=== PATIENT | female | born 1935 | race Caucasian/White ===

== ENCOUNTER 2021-07-03 09:01 | Outpatient (CLI) | payer MEDICARE, OTHER, SELFPAY ==
--- NOTE | 2021-07-03 09:16 | USCV_ITS ---
Gricelda Andrade Age: 86 Gender: F : 1935 Exam Date: 07/03/2021 09:36 Ordering Phys: Elmo Staton DO Technologist: Quang Mujica Exam Location: [facility] Indication: cad BP: 120 / 70 HR: 75 Rhythm: Sinus Technical Quality: Adequate MEASUREMENTS (Male / Female) Normal Values 2D ECHO LV Diastolic Diameter PLAX 4.2 cm 4.2 - 5.9 / 3.9 - 5.3 cm LV Systolic Diameter PLAX 2.5 cm IVS Diastolic Thickness 0.9 cm 0.6 - 1.0 / 0.6 - 0.9 cm IVS Systolic Thickness 1.3 cm LVPW Diastolic Thickness 0.9 cm 0.6 - 1.0 / 0.6 - 0.9 cm LVPW Systolic Thickness 1.2 cm LVOT Diameter 2.0 cm LV Ejection Fraction 2D Teich 63.8 % LV Ejection Fraction MOD 2C 59.0 % LV Ejection Fraction 2C AL 61.2 % LA Diameter 4.4 cm Aorta at Sinotubular Diameter 2.5 cm M-MODE Aortic Annulus Diameter 3.4 cm LA Ao Ratio MM 1.3 MV E Point Septal Separation 0.7 cm DOPPLER AV Peak Velocity 119.0 cm/s LVOT Peak Velocity 90.0 cm/s AV Area Cont Eq vti 2.2 cm squared AV Area Cont Eq pk 2.4 cm squared MV Area PHT 5.0 cm squared Mitral E to A Ratio 0.9 MV E' Velocity 42.5 cm/s Mitral E to MV E' Ratio 6.9 Mitral E to LV E' Lateral Ratio 5.1 Mitral E to LV E' Septal Ratio 10.4 TR Peak Velocity 147.7 cm/s TR Peak Gradient 8.7 mmHg TV Peak E Velocity 64.0 cm/s Right Atrial Pressure 3.0 mmHg Pulmonary Artery Systolic Pressu 11.7 mmHg PV Peak Velocity 89.0 cm/s FINDINGS Left Ventricle Normal left ventricular size and systolic function, EF 55 %. Abnormal septal motion consistent with conduction abnormality. Right Ventricle The right ventricle is normal in size and function. Right Atrium The right atrium is normal in size. Left Atrium Mildly increased left atrial size. Mitral Valve Moderate mitral valve regurgitation. Moderate mitral annular calcification. Aortic Valve Thickened aortic valve. Tricuspid Valve Mild tricuspid valve regurgitation. Pulmonic Valve No gross abnormalities noted Pericardium Normal pericardium without effusion. Aorta Normal ascending aorta dimension. CONCLUSIONS Normal left ventricular size and systolic function, EF 55 %. Abnormal septal motion consistent with conduction abnormality. Mildly increased left atrial size. Moderate mitral valve regurgitation. Moderate mitral annular calcification. Thickened aortic valve. Mild tricuspid valve regurgitation. There is no pericardial effusion. There are no intracardiac masses. Compared to previous study from 04/17/2015, there is some worsening of the mitral regurgitation Dr Nini Aquino MD FAC (Electronically Signed) Final Date: 03 Jul 2021 17:08 S
== END 2021-07-03 09:02 | disposition home or self-care (01) ==
PROVIDERS: PCP Electrodiagnostic Medicine; Visit Provider Electrodiagnostic Medicine
DX: I25.10 Atherosclerotic heart disease of native coronary artery without angina pectoris (principal); I49.9 Cardiac arrhythmia, unspecified; I08.1 Rheumatic disorders of both mitral and tricuspid valves
CPT/HCPCS: 93306

== ENCOUNTER → 2021-12-10 09:36 | Outpatient (BNVA) | payer MEDICARE, OTHER, SELFPAY | PROVIDERS: PCP Electrodiagnostic Medicine; Visit Provider Internal Medicine Cardiovascular Disease | DX: I25.5 Ischemic cardiomyopathy (principal); I12.9 Hypertensive chronic kidney disease with stage 1 through stage 4 chronic kidney disease, or unspecified chronic kidney disease; N18.30 Chronic kidney disease, stage 3 unspecified; E78.5 Hyperlipidemia, unspecified; I25.10 Atherosclerotic heart disease of native coronary artery without angina pectoris | CPT/HCPCS: 99214 ==

== ENCOUNTER → 2022-06-17 09:49 | Outpatient (BNVA) | payer MEDICARE, OTHER, SELFPAY | PROVIDERS: PCP Electrodiagnostic Medicine; Visit Provider Internal Medicine Cardiovascular Disease | DX: R06.02 Shortness of breath (principal); I12.9 Hypertensive chronic kidney disease with stage 1 through stage 4 chronic kidney disease, or unspecified chronic kidney disease; N18.30 Chronic kidney disease, stage 3 unspecified; E78.2 Mixed hyperlipidemia; I25.10 Atherosclerotic heart disease of native coronary artery without angina pectoris; M79.89 Other specified soft tissue disorders; H53.8 Other visual disturbances | CPT/HCPCS: 99214 ==

== ENCOUNTER 2022-06-20 10:40 | Outpatient (CLI) | payer MEDICARE, OTHER, SELFPAY ==
[2022-06-20 11:46] LABS: D Dimer 0.84 ug/mIFEU (0-0.59)
[2022-06-20 12:01] LABS: Anion Gap 12.3 (5-19); Blood Urea Nitrogen 14 mg/dL (8-23); Calcium 9.4 mg/dL (8.5-10.5); Carbon Dioxide 30 mmol/L (22-29); Chloride 100 mmol/L (98-107); Glucose 110 mg/dL (65-115); NT Pro B Type Natriuretic Pept 714 pg/mL (0-450); Osmolality Calculated 287 mOsm/kg (285-295); Potassium 4.3 mmol/L (3.5-5.1); Sodium 138 mmol/L (136-145)
== END 2022-06-20 10:41 | disposition home or self-care (01) ==
PROVIDERS: PCP Electrodiagnostic Medicine; Visit Provider Internal Medicine Cardiovascular Disease
DX: E78.2 Mixed hyperlipidemia (principal); I10 Essential (primary) hypertension; I25.10 Atherosclerotic heart disease of native coronary artery without angina pectoris; I25.5 Ischemic cardiomyopathy; M79.89 Other specified soft tissue disorders; R06.02 Shortness of breath
CPT/HCPCS: 36415; 80048; 83880; 85378

== ENCOUNTER 2022-06-24 08:46 | Outpatient (CLI) | payer MEDICARE, OTHER, SELFPAY ==
--- NOTE | 2022-06-24 09:00 | CT_ITS ---
WS: [id number] CTA OF THE CHEST WITH PULMONARY EMBOLISM PROTOCOL TECHNIQUE: High-resolution contrast enhanced CTA of the chest with coronal and sagittal reformatted i mages with pulmonary embolism protocol. MIP images are also reviewed. CLINICAL INFORMATION: M79.89 - Other specified soft tissue disorders COMPARISON: CTA 2019 DLP: 372.[address] scans at [facility] use at least one of these dose optimization techniques: automated e xposure control; mA and/or kV adjustment per patient size (includes targeted exams where dose is matc hed to clinical indication); or iterative reconstruction. FINDINGS: Proximal main pulmonary arteries are normal. Normal segmental and subsegmental pulmonary arteries. No evidence of pulmonary embolus. Moderate aortic atheromatous disease. Coronary calcification. No medi astinal or hilar lymphadenopathy. Calcified mediastinal and subcarinal lymph nodes. Moderate esophageal hiatal hernia progressed compared to 2019. Cardiomegaly. No axillary lymphadenopa thy. Incidental hepatic cysts. Cholecystectomy clips. Splenic granulomas. Adrenal glands are normal. Bilateral renal cortical atrophy. Fatty atrophy of the pancreas. Splenic artery calcification. CT/CT angio chest PE protcl [id number] IMPRESSION: 1. No evidence of pulmonary embolus. 2. Chronic emphysematous changes. No acute pulmonary infiltrates. Slight hazy atelectasis in the lung bases. 3. Cardiomegaly. 4. Moderate esophageal hiatal hernia progressed since 2019. 5. Small hepatic cysts in the dome the liver. 6. Moderate spondylitic changes thoracic spine with thoracic curve.
[2022-06-24] MEDS: iohexol 350 mg/mL 500 mL Btl (per mL) IV (09:58)
== END 2022-06-24 08:47 | disposition home or self-care (01) ==
LOC: RAD 08:52
PROVIDERS: PCP Electrodiagnostic Medicine; Visit Provider Internal Medicine Cardiovascular Disease
DX: E78.2 Mixed hyperlipidemia (principal); I10 Essential (primary) hypertension; I25.10 Atherosclerotic heart disease of native coronary artery without angina pectoris; M79.89 Other specified soft tissue disorders; I25.5 Ischemic cardiomyopathy; R79.89 Other specified abnormal findings of blood chemistry; R06.02 Shortness of breath; I51.7 Cardiomegaly; K44.9 Diaphragmatic hernia without obstruction or gangrene; K76.89 Other specified diseases of liver
CPT/HCPCS: 71275; Q9967

== ENCOUNTER 2022-07-08 16:03 | Outpatient (CLI) | payer MEDICARE, OTHER, SELFPAY ==
--- NOTE | 2022-07-08 15:30 | USCV_ITS ---
Gricelda Andrade Age: 87 Gender: F : 1935 Exam Date: 07/08/2022 16:40 Ordering Phys: Nini Aquino MD ([email or web address]) Technologist: Candido Cruz [place] [facility] [place]: blurring vision Risk Factors: Previous Vascular Surgery: Right Brachial BP: / Left Brachial BP: / Right Left Velocity (cm/s) Spectral Plaque Velocity (cm/s) Spectral Plaque Syst/Diast Broadening Syst/Diast Broadening 74.60/ 15.80 Prox CCA 59.80 / 17.10 63.30/ 13.60 Mid CCA 65.20 / 20.30 55.20/ 13.10 Distal CCA 47.50 / 13.40 41.40/ 12.00 Prox ICA 57.70 / 20.80 54.60/ 19.70 Mid ICA 52.90 / 20.30 74.90/ 25.60 Distal ICA 31.00 / 11.70 50.80 ECA 52.90 0.86 ICA/CCA 0.81 Antegrade Vertebral Antegrade 24.10/ 7.00 cm/s 50.70/ 18.20 cm/s Tri Subclavian Tri 68.40 59.30 FINDINGS Minimal plaque at the bifurcation and proximal internal carotid arteries bilaterally. Intimal thickening of the common carotid arteries bilaterally. Antegrade flow in the vertebral arteries bilaterally. Normal Doppler flow velocities in the external carotid and subclavian arteries bilaterally. CONCLUSIONS Minimal plaque at the bifurcation and proximal internal carotid arteries bilaterally, suggesting less than 50% stenosis. Intimal thickening of the common carotid arteries bilaterally. No similar previous studies are available for comparison Dr Nini Aquino MD [facility] (Electronically Signed) Final Date: 11 Jul 2022 09:01 S
== END 2022-07-08 16:04 | disposition home or self-care (01) ==
PROVIDERS: PCP Electrodiagnostic Medicine; Visit Provider Internal Medicine Cardiovascular Disease
DX: H53.8 Other visual disturbances (principal); R55 Syncope and collapse
CPT/HCPCS: 36415; 80048; 83880; 84443; 93880

== ENCOUNTER → 2022-09-23 12:06 | Outpatient (BNVA) | payer MEDICARE, OTHER, SELFPAY | PROVIDERS: PCP Electrodiagnostic Medicine; Visit Provider Internal Medicine Cardiovascular Disease | DX: R06.02 Shortness of breath (principal); Z79.899 Other long term (current) drug therapy; M79.89 Other specified soft tissue disorders; E78.2 Mixed hyperlipidemia; I25.10 Atherosclerotic heart disease of native coronary artery without angina pectoris; N18.30 Chronic kidney disease, stage 3 unspecified; I12.9 Hypertensive chronic kidney disease with stage 1 through stage 4 chronic kidney disease, or unspecified chronic kidney disease | CPT/HCPCS: 80048; 83880; 99214 ==

== ENCOUNTER 2022-10-29 09:50 | Outpatient (CLI) | payer MEDICARE, OTHER, SELFPAY ==
[2022-10-29 10:44] LABS: Anion Gap 9.3 (5-19); Blood Urea Nitrogen 17 mg/dL (8-23); Calcium 9.6 mg/dL (8.5-10.5); Carbon Dioxide 33 mmol/L (22-29); Chloride 100 mmol/L (98-107); Glucose 121 mg/dL (65-115); NT Pro B Type Natriuretic Pept 1505 pg/mL (0-450); Osmolality Calculated 289 mOsm/kg (285-295); Potassium 4.3 mmol/L (3.5-5.1); Sodium 138 mmol/L (136-145)
== END 2022-10-29 09:51 | disposition home or self-care (01) ==
PROVIDERS: PCP Electrodiagnostic Medicine; Visit Provider Internal Medicine Cardiovascular Disease
DX: I25.10 Atherosclerotic heart disease of native coronary artery without angina pectoris (principal); I25.5 Ischemic cardiomyopathy; I10 Essential (primary) hypertension; R06.02 Shortness of breath
CPT/HCPCS: 36415; 80048; 83880

== ENCOUNTER 2022-11-12 11:38 | Outpatient (CLI) | payer MEDICARE, OTHER, SELFPAY ==
[2022-11-12 13:20] LABS: Anion Gap 11.7 (5-19); Blood Urea Nitrogen 18 mg/dL (8-23); Calcium 9.7 mg/dL (8.5-10.5); Carbon Dioxide 33 mmol/L (22-29); Chloride 98 mmol/L (98-107); Glucose 106 mg/dL (65-115); NT Pro B Type Natriuretic Pept 2075 pg/mL (0-450); Osmolality Calculated 288 mOsm/kg (285-295); Potassium 4.7 mmol/L (3.5-5.1); Sodium 138 mmol/L (136-145)
== END 2022-11-12 11:39 | disposition home or self-care (01) ==
PROVIDERS: PCP Electrodiagnostic Medicine; Visit Provider Internal Medicine Cardiovascular Disease
DX: I10 Essential (primary) hypertension (principal); I25.10 Atherosclerotic heart disease of native coronary artery without angina pectoris; I25.5 Ischemic cardiomyopathy; R06.02 Shortness of breath; Z79.899 Other long term (current) drug therapy
CPT/HCPCS: 36415; 80048; 83880

== ENCOUNTER → 2022-11-27 15:11 | Outpatient (BNVA) | payer MEDICARE, OTHER, SELFPAY | PROVIDERS: PCP Electrodiagnostic Medicine; Visit Provider Internal Medicine Cardiovascular Disease | DX: I13.0 Hypertensive heart and chronic kidney disease with heart failure and stage 1 through stage 4 chronic kidney disease, or unspecified chronic kidney disease (principal); N18.30 Chronic kidney disease, stage 3 unspecified; I50.32 Chronic diastolic (congestive) heart failure; I25.10 Atherosclerotic heart disease of native coronary artery without angina pectoris; E78.2 Mixed hyperlipidemia | CPT/HCPCS: 36415; 80048; 83880; 99214 ==

== ENCOUNTER 2022-12-11 12:46 | Outpatient (CLI) | payer MEDICARE, OTHER, SELFPAY ==
[2022-12-11 13:06] VITALS: PULSE 100; RESP 18; O2SAT 97
[2022-12-11 13:10] VITALS: PULSE 105
[2022-12-11] MEDS: albuterol 2.5 mg/3 mL Neb INHALATION (13:11)
== END 2022-12-11 12:47 | disposition home or self-care (01) ==
PROVIDERS: PCP Electrodiagnostic Medicine; Visit Provider Electrodiagnostic Medicine
DX: J44.9 Chronic obstructive pulmonary disease, unspecified (principal)
CPT/HCPCS: 94060; 94726; 94729; J7613

== ENCOUNTER 2022-12-12 09:33 | Outpatient (CLI) | payer MEDICARE, OTHER, SELFPAY ==
--- NOTE | 2022-12-12 09:40 | USCV_ITS ---
Raymond Gricelda Age: 87 Gender: F : 1935 Exam Date: 12/12/2022 09:56 Ordering Phys: Elmo Staton DO Technologist: Anisha Hutchinson [place] [facility] [place]ication: CHRONIC CHF BP: 110 / 78 HR: 105 Rhythm: Sinus Technical Quality: Adequate MEASUREMENTS (Male / Female) Normal Values 2D ECHO LV Diastolic Diameter PLAX 2.7 cm 4.2 - 5.9 / 3.9 - 5.3 cm LV Systolic Diameter PLAX 1.3 cm LV Chamber Size 3.1 cm IVS Diastolic Thickness 1.1 cm 0.6 - 1.0 / 0.6 - 0.9 cm IVS Systolic Thickness 1.1 cm LVPW Diastolic Thickness 1.2 cm 0.6 - 1.0 / 0.6 - 0.9 cm LVPW Systolic Thickness 1.2 cm RV Chamber Size 2.5 cm LVOT Diameter 2.0 cm LV Ejection Fraction 2D Teich 82.1 % LV Ejection Fraction MOD 2C 79.1 % LV Ejection Fraction 2C AL 77.9 % LA Diameter 4.4 cm LA Width 3.1 cm LA Height 3.8 cm RA Width 2.9 cm RA Height 2.9 cm Aorta at Sinotubular Diameter 3.0 cm IVC Diameter 1.1 cm M-MODE Aortic Annulus Diameter 2.9 cm LA Ao Ratio MM 1.7 MV E Point Septal Separation 0.3 cm DOPPLER AV Peak Velocity 116.0 cm/s LVOT Peak Velocity 101.0 cm/s AV Area Cont Eq vti 2.8 cm squared AV Area Cont Eq pk 2.9 cm squared MV Area PHT 4.3 cm squared Mitral E to A Ratio 0.8 MV E' Velocity 32.5 cm/s Mitral E to MV E' Ratio 6.5 Mitral E to LV E' Lateral Ratio 6.9 Mitral E to LV E' Septal Ratio 6.2 TR Peak Velocity 105.5 cm/s TR Peak Gradient 4.4 mmHg TR Mean Velocity 77.3 cm/s TR Mean Gradient 2.6 mmHg TR Velocity Time Integral 22.3 cm TV Peak E Velocity 82.0 cm/s Right Atrial Pressure 3.0 mmHg Pulmonary Artery Systolic Pressu 7.4 mmHg RV Acceleration Time 0.2 s RV Ejection Time 0.3 s RV AcT/ET 0.6 FINDINGS Left Ventricle Normal left ventricular size, systolic function and wall thickness, with no regional wall motion abnormalities. Left ventricular ejection fraction is estimated at 60 %. Normal diastolic function. Right Ventricle Normal right ventricular size and systolic function. Right ventricular systolic pressure 7.4 mmHg. Right Atrium Normal right atrial size. Left Atrium Mildly increased left atrial size. Mitral Valve Moderate mitral annular calcification. Mildly thickened mitral valve. No mitral valve stenosis. Trace mitral valve regurgitation. Aortic Valve Mildly thickened trileaflet aortic valve. No aortic valve stenosis. No aortic valve regurgitation. Tricuspid Valve Structurally normal tricuspid valve. No significant tricuspid valve regurgitation. Pulmonic Valve Pulmonic valve not well visualized. No pulmonary valve stenosis. Pericardium No pericardial effusion. Aorta Normal size aortic root and proximal ascending aorta. IVC Normal IVC dimension with >50% respiratory change of the inferior vena cava. CONCLUSIONS 1. Normal left ventricular size, systolic function and wall thickness, with no regional wall motion abnormalities. Left ventricular ejection fraction is estimated at 60 %. Normal diastolic function. 2. Normal right ventricular size and systolic function. 3.When compared to study dated 07/03/2021, mitral and tricuspid valve regurgitation is not well seen. Nila Gonzalez MD (Electronically Signed) Final Date: 17 December 2022 12:33 S
== END 2022-12-12 09:34 | disposition home or self-care (01) ==
LOC: RAD 09:34
PROVIDERS: PCP Electrodiagnostic Medicine; Visit Provider Electrodiagnostic Medicine
DX: I50.32 Chronic diastolic (congestive) heart failure (principal)
CPT/HCPCS: 93306

== ENCOUNTER 2022-12-14 11:07 | Observation (INO) | payer MEDICARE, OTHER, SELFPAY ==
[2022-12-14] VITALS (10 sets, daily range): BP systolic 98–134; BP diastolic 62–78; PULSE 98–114; RESP 16–19; TEMP 36.5–37.3; O2SAT 89–98; BMI 25.7
--- NOTE | 2022-12-14 11:11 | ECG_ITS ---
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 Measurements Intervals [place]ed Rate: 102 P: 59 DE: 141 QRS: 17 QRSD: 110 T: -17 QT: 293 QTc: 383 Interpretive Statements SINUS TACHYCARDIA INCOMPLETE RIGHT BUNDLE BRANCH BLOCK [90+ ms QRS DURATION, TERMINAL R IN V1/V2, 40+ ms S IN I/aVL/V4/V5/V6] ST DEVIATION AND MODERATE T-WAVE ABNORMALITY, CONSIDER ANTEROLATERAL ISCHEMIA [-0.1+ mV T-WAVE IN V3-V6] Compared to ECG 04/10/2018 04:02:19 Incomplete right bundle-branch block now present Sinus rhythm no longer present Right bundle-branch block no longer present T-wave abnormality still present Possible ischemia still present Electronically Signed On 12-14-2022 21:22:47 CDT by Nini Aquino M.D. [id number]
--- NOTE | 2022-12-14 11:38 | XRR_ITS ---
PROCEDURE INFORMATION: Exam: XR Chest Exam date and time: 12/14/2022 11:47 AM Age: 87 years old Clinical indication: Shortness of breath; Additional info: SOB TECHNIQUE: Imaging protocol: Radiologic exam of the chest. Views: 1 view. COMPARISON: CT angio chest PE protcl [id number] 06/24/2022 9:48 AM FINDINGS: Lungs: There is a calcified granuloma at the right lung base. There is minimal bilateral lung scarring. No suspicious infiltrates are identified. Pleural spaces: Unremarkable. No pleural effusion. No pneumothorax. Heart/Mediastinum: There is a moderate-sized hiatal hernia. Bones/joints: Unremarkable. XR/XR chest 1V portable [id number] IMPRESSION: 1. No evidence of acute pulmonary process. 2. Moderate-sized hiatal hernia.
[2022-12-14 12:14] LABS: ABG PCO2 47.4 mmHg (35-45); ABG PH Result 7.43 (7.35-7.45); Alveolar-Arterial Oxygen Gradi 4.6 mmHg (5-10); Arterial Blood Gas Hematocrit 31.1 % (37-47); Base Excess ABG 6.2 mmol/L (-2.0-2.0); Blood Gas Allen Test Pos; Blood Gas Sample Site Radial, right; Blood Gas Sample Type Arterial; Carboxyhemoglobin 0.8 %THgb (0.4-20.1); HCO3 ABG 31.3 mmol/L (22-26); HGB O2 Sat 88.8 % (95-100); Ionized Calcium Level - ABG 1.3 mmol/L (1.1-1.4); Methemoglobin 0.4 % (0.4-1.5); Oxygen Device ROOM AIR; Oxygen Saturation ABG 89.9; PO2 ABG 56.5 mmHg (80.0-100.0); Potassium Level - ABG 4.7 mmol/L (3.5-5.0); Total Hemoglobin 10.1 g/dL (12-16)
[2022-12-14 12:14] LABS: Basophils # 0.1 10^3/uL (0.0-0.1); Basophils % 0.5 %; Eosinophils # 0.1 10^3/uL (0.0-0.8); Eosinophils % 0.5 %; Hematocrit 32.2 % (36-47); Lymphocytes % 8.4 %; Mean Corpuscular HGB Conc 31.4 g/dL (30-55); Mean Corpuscular Hemoglobin 28.4 pg (27-33); Mean Corpuscular Volume 90.4 fl (85-98); Mean Platelet Volume 8.3 fL (7.4-10.4); Monocytes # 1.4 10^3/uL (0.2-0.9); Monocytes % 11.8 %; Neutrophils # 9.35 10^3/uL (1.8-7.7); Neutrophils % 78.2 %; Nucleated Red Blood Cells % 0 %; Platelet Count 407 10^3/cmm (157-399); Red Blood Count 3.56 10^6/uL (3.85-5.65); Red Cell Distribution Width 13.3 % (12.1-15.1); White Blood Count 11.95 10^3/uL (3.29-11.43)
[2022-12-14 12:24] LABS: Lactic Sepsis W/Reflex 1.6 mmol/L (0.5-2.2)
[2022-12-14 12:34] LABS: Alanine Aminotransferase 52 U/L (0-33); Albumin Level 2.7 g/dL (3.5-5.2); Alkaline Phosphatase 116 U/L (35-105); Aspartate Amino Transferase 43 U/L (0-32); Blood Urea Nitrogen 20 mg/dL (8-23); Calcium 9.3 mg/dL (8.5-10.5); Carbon Dioxide 28 mmol/L (22-29); Chloride 90 mmol/L (98-107); Globulin 3.5 g/dL (1.3-4.6); Glucose 129 mg/dL (65-115); Magnesium 2.3 mg/dL (1.7-2.3); NT Pro B Type Natriuretic Pept 3960 pg/mL (0-450); Osmolality Calculated 268 mOsm/kg (285-295); Sodium 127 mmol/L (136-145); Total Bilirubin 0.3 mg/dL (0.15-1.2); Total Protein 6.2 g/dL (6.6-8.7)
--- NOTE | 2022-12-14 12:55 | ED_ITS ---
HPI - SOB/Dyspnea General: Chief Complaint: Shortness of Breath/Dyspnea Stated Complaint: SOB/chest tightness Time Seen by Provider: 12/14/22 11:16 History of Present Illness: HPI Narrative: 87-year-old female with complex medical history including chronic kidney disease, ischemic cardiomyopathy, hypertension, hyperlipidemia and coronary disease. Patient was brought into emergency room today by daughter due to shortness of breath, fatigue and generalized weakness within the past few days. Daughter also reviews that patient has not been eating and tends to sleep a lot lately. Patient denies any nausea or vomiting but reveals some chest pain and described the pain as heaviness. Denies coughing up blood, cough, diarrhea, bloody stool or dark stool. No known sick contacts or foreign travel. Upon present emergency room patient was found to have hypotension but patient is awake alert without any acute distress. Associated symptoms: Reports chest pain and orthopnea; Deny diaphoresis, dizziness, hemoptysis or syncope Review of Systems Const: Reports: fatigue, malaise and change in sleep pattern; Denies: diaphoresis or snoring Card: Reports: chest pain, dyspnea on exertion and orthopnea; Denies: edema, syncope or pre-syncope Resp: Reports: dyspnea; Denies: productive cough, non-productive cough, wheezing, stridor, pain on inspiration, change in phlegm color or hemoptysis Neuro: Reports: frequent falls; Denies: headache(s), numbness in extremities, weakness in extremities, sensory changes, difficulty walking, dizziness, vertigo or confusion PFSH ED PFSH: Medical History ASHD (arteriosclerotic heart disease) CKD (chronic kidney disease) Hyperlipidemia Hypertension Ischemic cardiomyopathy Spondylosis Surgical History H/O cataract extraction H/O: knee surgery Hx of cholecystectomy Family History Mother CAD (coronary artery disease) Daughter CAD (coronary artery disease) Family/Other CAD (coronary artery disease) Grandfather CAD (coronary artery disease) Son Cancer Denies family history of Diabetes Clotting disorder Dementia Chronic kidney disease (CKD) Suicide Anesthesia complication Bleeding disorder Lung disease Stroke Social History Smoking and tobacco/nicotine status: never used tobacco/nicotine Alcohol intake: never Substance/Drug Use: never Physical Exam Const: COMMON NORMALS: no acute distress, patient oriented x3 and alert Neck/C-Spine: COMMON NORMALS: no meningeal signs and no JVD Chest: COMMONS NORMALS: normal inspection of the chest, normal palpation of entire chest wall, normal inspection of the breasts and normal palpation of the breasts Breast/axilla inspection: Yes normal inspection of the breasts BREAST/AXILLA PALPATION: Yes normal palpation of the breasts Resp: COMMON NORMALS: normal respiratory effort, No retractions, No use of accessory muscles, clear to auscultation bilaterally and percussion normal AUSCULTATION: clear to auscultation bilaterally PERCUSSION: percussion normal Cardio: COMMON NORMALS: no JVD, regular rate, regular rhythm, S1 normal heart sound present, S2 normal heart sound present, No gallops present (Cardio), No clicks present (Cardio), No murmurs present (Cardio), No rub (Cardio) and Peripheral pulses 2+ throughout JUGULAR VENOUS DISTENTION: no JVD PALPATION: normal PMI RATE: regular rate RHYTHM: regular rhythm HEART SOUNDS: S1 normal heart sound present and S2 normal heart sound present PERIPHERAL PULSES: Peripheral pulses 2+ throughout Extremity: GENERAL: Yes normal exam except as noted, No calf tenderness, No carpopedal spasm, No deformity, No edema, No hypertrophy, No pallor, No palpable cord and No pulses abnormal Neuro: COMMON NORMALS: patient oriented x3 SENSORIUM/ORIENTATION: Yes alert MENINGEAL SIGNS: Yes no meningeal signs CRANIAL NERVES: Yes CN normal except as noted SPEECH: speech normal Skin: COMMON NORMALS: no rashes or lesions noted, no wounds, turgor normal, no jaundice, no petechiae and no mottling GENERAL SKIN EXAM: no rashes or lesions noted and turgor normal Course Consultations: Consultation #1: Discussed patient with the hospitalist. Patient will be admitted for further evaluation and treatment. Vital Signs: Vital signs: Vital Signs Temperature 98.3 F 12/14/22 19:18 Pulse Rate 104 H 12/14/22 20:35 Respiratory Rate 16 12/14/22 20:35 Blood Pressure 118/78 12/14/22 19:18 Pulse Oximetry 94 12/14/22 20:35 Oxygen Delivery Me thod Nasal Cannula 12/14/22 20:35 Oxygen Flow Rate 2 12/14/22 20:35 MDM - SOB/Dyspnea Medical Decision Making Patient was made comfortable emergency room and had extensive work-up including CBC, CMP, BNP, troponin and chest x-ray. Discussed the lab and x-ray finding with patient and daughter. I discussed patient with the hospitalist. Patient be admitted for further evaluation and treatment. Patient was given IV fluid and her blood pressure did improve significantly prior to transfer to medical floor. Differential Diagnosis Likely acute exacerbation of chronic obstructive airways disease, congestive heart failure, community acquired pneumonia, asthma with exacerbation and pulmonary embolism Lab Data 12/14/22 11:56 12/14/22 11:56 Labs/Radiology: Radiology Impressions Chest X-Ray 12/14/22 11:38 IMPRESSION: 1. No evidence of acute pulmonary process. 2. Moderate-sized hiatal hernia. Laboratory Results WBC 11.95 10^3/uL (3.29-11.43) H 12/14/22 11:56 RBC 3.56 10^6/uL (3.85-5.65) L 12/14/22 11:56 Hgb 10.10 g/dL (11.27-16.99) L 12/14/22 11:56 Hct 32.2 % (36-47) L 12/14/22 11:56 MCV 90.4 fl (85-98) 12/14/22 11:56 MCH 28.4 pg (27-33) 12/14/22 11:56 MCHC 31.4 g/dL (30-55) 12/14/22 11:56 RDW 13.3 % (12.1-15.1) 12/14/22 11:56 Plt Count 407 10^3/cmm (157-399) H 12/14/22 11:56 MPV 8.3 fL (7.4-10.4) 12/14/22 11:56 Neut % (Auto) 78.2 % 12/14/22 11:56 Lymph % (Auto) 8.4 % 12/14/22 11:56 [place] % (Auto) 11.8 % 12/14/22 11:56 Eos % (Auto) 0.5 % 12/14/22 11:56 Baso % (Auto) 0.5 % 12/14/22 11:56 Neut # (Auto) 9.35 10^3/uL (1.8-7.7) H 12/14/22 11:56 Lymph # (Auto) 1.0 10^3/uL (0.8-4.8) 12/14/22 11:56 [place] # (Auto) 1.4 10^3/uL (0.2-0.9) H 12/14/22 11:56 Eos # (Auto) 0.1 10^3/uL (0.0-0.8) 12/14/22 11:56 Baso # (Auto) 0.1 10^3/uL (0.0-0.1) 12/14/22 11:56 Nucleated RBC % (auto) 0 % 12/14/22 11:56 Nucleated RBCs # 0.0 /100WBC 12/14/22 11:56 Specimen Type Arterial 12/14/22 12:02 Sample Site Radial, right 12/14/22 12:02 ABG pH 7.43 (7.35-7.45) 12/14/22 12:02 ABG pCO2 47.4 mmHg (35-45) H 12/14/22 12:02 ABG pO2 56.5 mmHg (80.0-100.0) L 12/14/22 12:02 ABG HCO3 31.3 mmol/L (22-26) H 12/14/22 12:02 ABG O2 Saturation 89.9 12/14/22 12:02 ABG Base Excess 6.2 mmol/L (-2.0-2.0) H 12/14/22 12:02 Jovan Test Pos 12/14/22 12:02 A-a O2 Gradient 4.6 mmHg (5-10) L 12/14/22 12:02 Hematocrit 31.1 % (37-47) L 12/14/22 12:02 Hgb O2 Saturation 88.8 % (95-100) L 12/14/22 12:02 Carboxyhemoglobin 0.8 %THgb (0.4-20.1) 12/14/22 12:02 Methemoglobin 0.4 % (0.4-1.5) 12/14/22 12:02 Total Hemoglobin 10.1 g/dL (12-16) L 12/14/22 12:02 Sodium 127.0 mmol/L (131-143) L 12/14/22 12:02 Potassium 4.7 mmol/L (3.5-5.0) 12/14/22 12:02 Glucose 125.0 mg/dL (70-115) H 12/14/22 12:02 Ionized Calcium 1.3 mmol/L (1.1-1.4) 12/14/22 12:02 O2 Delivery Device Room air 12/14/22 12:02 Physician Compensation Analyst ID Waldo 12/14/22 12:02 Sodium 127 mmol/L (136-145) L 12/14/22 11:56 Potassium 5.0 mmol/L (3.5-5.1) 12/14/22 11:56 Chloride 90 mmol/L (98-107) L 12/14/22 11:56 Carbon Dioxide 28 mmol/L (22-29) 12/14/22 11:56 Anion Gap 14.0 (5-19) 12/14/22 11:56 BUN 20 mg/dL (8-23) 12/14/22 11:56 Creatinine 1.4 mg/dL (0.5-0.9) H 12/14/22 11:56 GFR Calculation Not Reportable 12/14/22 11:56 Glucose 129 mg/dL (65-115) H 12/14/22 11:56 Estimat Average Glucose 120 12/14/22 11:56 Hemoglobin A1c 5.8 % (4.0-6.0) 12/14/22 11:56 Calculated Osmolality 268 mOsm/kg (285-295) L 12/14/22 11:56 Lactic Acid 1.6 mmol/L (0.5-2.2) 12/14/22 11:56 Calcium 9.3 mg/dL (8.5-10.5) 12/14/22 11:56 Magnesium 2.3 mg/dL (1.7-2.3) 12/14/22 11:56 Total Bilirubin 0.3 mg/dL (0.15-1.2) 12/14/22 11:56 AST 43 U/L (0-32) H 12/14/22 11:56 ALT 52 U/L (0-33) H 12/14/22 11:56 Alkaline Phosphatase 116 U/L (35-105) H 12/14/22 11:56 Troponin T Baseline 20 ng/L (0-10) H 12/14/22 11:56 NT-Pro-B Natriuret Pep 3960 pg/mL (0-450) H 12/14/22 11:56 Total Protein 6.2 g/dL (6.6-8.7) L 12/14/22 11:56 Albumin 2.7 g/dL (3.5-5.2) L 12/14/22 11:56 Globulin 3.5 g/dL (1.3-4.6) 12/14/22 11:56 XR interpretation done by ED provider, pending radiology final review EKG Data EKG 1: Interpretation: Sinus tachycardia rate of 102 with incomplete right bundle branch block. Nonspecific ST and T wave changes. FL interval 144 QT 293 Discharge Plan Discharge Patient Disposition: Admitted As Inpatient Admit Provider: Jimbo Jackson Clinical Impression: Ischemic cardiomyopathy, SOB (shortness of breath), Acute hyponatremia, Transaminitis, Acute UTI Condition: Stable Coding Level of Care Code ED Claims Investigator for Luz Woods
[2022-12-14] MEDS: sodium chloride 0.9% 500 ML 999 ML IV (12:59)
[2022-12-14 13:15] LABS: Troponin(5th) Baseline 20 ng/L (0-10)
[2022-12-14] MEDS: sodium chloride 0.9% 1,000 ML 999 ML IV (13:47)
[2022-12-14 14:09] LABS: Add Urine Microscopic? YES; Bacteria Urine 3+ /hpf; Bilirubin Urine Neg (Negative); Blood Urine Neg (Negative); Glucose Urine UA Norm (Normal); Ketones Urine Negative (Negative); Leukocyte Esterase Urine 1+ (Negative); Nitrate Urine Negative (Negative); Protein Urine Neg (Negative); Urine Appearance Clear (CLEAR); Urine Color Straw (Yellow); Urobilinogen Urine Norm (Negative); pH Urine 6.5 (5-7)
[2022-12-14 14:10] LABS: Add Urine Culture? Yes
--- NOTE | 2022-12-14 14:27 | P.HP_ITS ---
Providers/Chief Complaint Admitting Physician: Jimbo Jackson MD Primary Care Provider: Elmo Staton DO Chief Complaint: SOB/chest tightness History of Present Illness Gricelda Andrade is a 87 year old female who follows up with Dr. Aquino, Dr. Aquino has uptitrated her antihypertensive regimen recently, she is also on Lasix, considering esophageal hernia and she does not eat very much stating that smell and taste of food does not suture anymore, no recent COVID-related symptoms, she was with her daughter, she was recommended stress test by Dr. Aquino however she has not been able to schedule one. Recent echo did not show any worsening of EF. Today he presented because of worsening of fatigue lethargy and low blood pressure She took her morning medications without checking her blood pressure. In the ER she has hypertension Sodium 127 she is pleasant and cooperative Creatinine at baseline BNP 3900 Chest x-ray showing hernia no mass or congestion Her blood pressure improved with IV fluid hydration Review of Systems Const: Denies: fever(s) Eyes: Denies: change in vision ENMT: Denies: dental pain Resp: Denies: dyspnea GI: Reports: nausea : Denies: flank pain Musc: Denies: neck pain Skin/Breast: Denies: skin tenderness Medications/Allergies Home Medications Medication Instructions Recorded Confirmed Last Taken Type acetaminophen 300 mg-codeine 30 mg 1 tab PO TID PRN 07/07/19 09/23/22 Unknown History tablet (Tylenol-Codeine #3) levothyroxine 50 mcg capsule 50 mcg PO DAILY 07/07/19 09/23/22 Unknown History pantoprazole 40 mg tablet,delayed 40 mg PO DAILY 07/07/19 09/23/22 Unknown Histo ry release cholecalciferol (vitamin D3) 25 25 mcg PO DAILY 08/24/19 09/23/22 Unknown History mcg (1,000 unit) capsule isosorbide mononitrate 30 mg 30 mg PO DAILY 06/05/20 09/23/22 Unknown History tablet,extended release 24 hr alprazolam 0.5 mg tablet (Xanax) 1 mg PO BID 12/11/20 09/23/22 Unknown History estradiol 0.01% (0.1 mg/gram) 1 appful vaginal .weekly PRN 12/11/20 09/23/22 Unknown History vaginal cream calcium carbonate 975 mg-magnesium tab PO 09/23/22 09/23/22 Unknown History carbonate 232 mg oral tablet carvedilol 6.25 mg tablet 12.5 mg PO BID 09/23/22 09/25/22 Unknown History lactobacillus combination no.9 4 4,000 mmu cells PO DAILY 09/23/22 09/23/22 Unknown History billion cell capsule (Adult 50 Plus Probiotic) multivitamin 1 tab PO DAILY 09/23/22 09/23/22 Unknown History vit C 250 mg-vit E 90 mg-zinc 40 1 tab PO BID 09/23/22 09/23/22 Unknown History mg-copper 1 [id number] capsule (PreserVision AREDS-2) potassium chloride 8 mEq 8 meq PO DAILY #30 caps 10/31/22 Unknown Rx capsule,extended release losartan 100 mg tablet 100 mg PO DAILY 30 days #30 tabs 11/27/22 11/27/22 Unknown Rx furosemide 20 mg tablet 20 mg PO DAILY #30 tabs 11/28/22 Unknown Rx Allergies Allergy/AdvReac Type Severity Reaction Status Date / Time No Known Allergies Allergy Verified 11/27/22 15:52 PFSH Acute PFSH: Medical History ASHD (arteriosclerotic heart disease) CKD (chronic kidney disease) Hyperlipidemia Hypertension Ischemic cardiomyopathy Spondylosis Surgical History H/O cataract extraction H/O: knee surgery Hx of cholecystectomy Family History Mother CAD (coronary artery disease) Daughter CAD (coronary artery disease) Family/Other CAD (coronary artery disease) Grandfather CAD (coronary artery disease) Son Cancer Denies family history of Diabetes Clotting disorder Dementia Chronic kidney disease (CKD) Suicide Anesthesia complication Bleeding disorder Lung disease Stroke Social History Smoking and tobacco/nicotine status: never used tobacco/nicotine Alcohol intake: never Substance/Drug Use: never Vitals/I&O/Wt Last Vital Signs Temp 97.9 F 12/14/22 11:12 Pulse 98 12/14/22 14:00 Resp 18 12/14/22 14:00 BP 105/75 12/14/22 14:00 Pulse Ox 98 12/14/22 14:00 O2 Del Method Nasal Cannula 12/14/22 14:00 O2 Flow Rate 2 12/14/22 14:00 12/13/22 12/14/22 12/14/22 22:59 06:59 14:59 Intake Total 500.00 / 500.00 Balance 500.00 / 500.00 Weight last 48 hrs Weight 68.039 kg Physical Exam Narrative: Patient is awake and alert Signs of dehydration present No sign of active heart failure Currently on 2 L nasal cannula GCS 15 Pleasant and cooperative Blood pressure 105/75 mg acute Family is at the bedside S1, S2 Abdomen soft Data 12/14/22 11:56 12/14/22 11:56 Micro: Microbiology 12/14/22 12:42 Blood Culture - Preliminary Blood SPECIMEN COLLECTED 12/14/22 12:48 Blood Culture - Preliminary Blood SPECIMEN COLLECTED A&P Assessment and plan (1) Acute hyponatremia: (2) Transaminitis: (3) Acute UTI: (4) CKD (chronic kidney disease): Qualifiers: Chronic kidney disease stage: stage 3 (moderate) Qualified Code(s): N 18.3 - Chronic kidney disease, stage 3 (moderate) Plan Hypotension related to polypharmacy Patient is also dehydrated Trial of fluid resuscitation until 8 PM then we can discontinue Hold off on Lasix Hold antihypertensive regimen Fatigue and lethargy likely related to hyponatremia We will give her salt tablets and fluid hydration Clinically she is dehydrated No active chest pain or shortness of breath Currently requiring 1 to 2 L nasal cannula she does not use any oxygen at home Chronic kidney disease: No acute worsening her baseline creatinine seems to fluctuate between 1.4-1.5 I will get stress test on Friday and then will discharge No need to repeat echo at this point PT requested Regular diet DVT prophylaxis on board Full code Family updated Attestations Medical Necessity Statement*: Anticipating discharge on Friday after stress test Anticipate discharge within 48 hours Diagnoses Acute hyponatremia E87.1 Transaminitis R74.01 Acute UTI N39.0 CKD (chronic kidney disease) N18.3 Chronic kidney disease stage: stage 3 (moderate)
[2022-12-14 14:47] LABS: Troponin 5 2HR 19.27 ng/L (0-10)
[2022-12-14 14:48] LABS: Troponin 5 2HR Delta -0.73 ABS# (0-10)
[2022-12-14] MEDS: cefTRIAXone 1,000 MG in sodium chloride 0.9% (plus) 50 ML 100 MG IV (15:40)
[2022-12-14] MEDS: sodium chloride 1 gm Tablet PO ×2 (15:44→17:40)
[2022-12-14 16:01] LABS: Estmated Average Glucose 120; Hemoglobin A1C 5.8 % (4.0-6.0)
[2022-12-14 16:07] LABS: Vitamin B12 820 pg/mL (232-1245)
[2022-12-14] MEDS: carvedilol 12.5 mg Tablet PO (17:40)
[2022-12-14] MEDS: sodium chloride 0.9% 1,000 ML 75 ML IV (17:41)
[2022-12-14 17:54] LABS: Adenovirus Not Detected (NOT DETECT); Chlamydia Pneumoniae Not Detected (NOT DETECT); Coronavirus 229E,HKU1,NL63,OC4 Not Detected (NOT DETECT); Human Metapneumovirus Not Detected (NOT DETECT); Human Rhinovirus/Enterovirus Not Detected (NOT DETECT); Influenza A Not Detected (NOT DETECT); Influenza A H1 Not Detected (NOT DETECT); Influenza A H1-2009 Not Detected (NOT DETECT); Influenza A H3 Not Detected (NOT DETECT); Influenza B Not Detected (NOT DETECT); Mycoplasma Pneumoniae Not Detected (NOT DETECT); Parainfluenza Virus Type 1 Not Detected (NOT DETECT); Parainfluenza Virus Type 2 Not Detected (NOT DETECT); Parainfluenza Virus Type 3 Not Detected (NOT DETECT); Parainfluenza Virus Type 4 Not Detected (NOT DETECT); Respiratory Syncytial Virus A Not Detected (NOT DETECT); Respiratory Syncytial Virus B Not Detected (NOT DETECT); SARS-COV-2 Not Detected (NOT DETECT)
[2022-12-14 19:07] LABS: Troponin 5 6HR 17.01 ng/L (0-10)
[2022-12-14 19:10] LABS: Troponin 5 6HR Delta -2.99 ng/L (0-12)
[2022-12-15] VITALS (9 sets, daily range): BP systolic 136–168; BP diastolic 64–105; PULSE 97–112; RESP 16–20; TEMP 36.6–37.7; O2SAT 91–98
[2022-12-15 05:50] LABS: Anion Gap 11.2 (5-19); Blood Urea Nitrogen 14 mg/dL (8-23); C Reactive Protein 212.6 mg/L (0.0-4.9); Calcium 9.4 mg/dL (8.5-10.5); Carbon Dioxide 29 mmol/L (22-29); Chloride 92 mmol/L (98-107); Glucose 95 mg/dL (65-115); Osmolality Calculated 266 mOsm/kg (285-295); Potassium 4.2 mmol/L (3.5-5.1); Sodium 128 mmol/L (136-145)
[2022-12-15] MEDS: sodium chloride 1 gm Tablet PO ×2 (08:57→18:01)
[2022-12-15] MEDS: levothyroxine 50 mcg Tablet PO (08:57)
[2022-12-15] MEDS: sennosides-docusate Tablet 1 TAB PO (08:57)
[2022-12-15] MEDS: metoprolol tartrate 25 mg Tablet PO (08:58)
--- NOTE | 2022-12-15 17:55 | PM.PN ---
Subjective Subjective: Plan for stress test on Friday We will keep him n.p.o. after Friday midnight No active chest pain or shortness of breath Hemodynamically stable Creatinine stable Vitals/I&O/Wt Last Vital Signs Temp 97.7 F 12/14/22 15:18 Pulse 110 H 12/14/22 15:18 Resp 19 H 12/14/22 15:18 BP 133/66 12/14/22 15:18 Pulse Ox 91 12/14/22 15:18 O2 Del Method Nasal Cannula 12/14/22 15:18 O2 Flow Rate 2 12/14/22 14:00 12/14/22 12/14/22 12/14/22 06:59 14:59 22:59 Intake Total 500.00 / 500.00 170 / 670.00 Balance 500.00 / 500.00 170 / 670.00 Weight last 48 hrs Weight 68.039 kg Physical Exam Narrative: Signs of dehydration improving Hemodynamically stable Currently on 1 L nasal cannula Afebrile Pleasant and cooperative No new focal deficit No new edema of legs S1, S2 Data 12/14/22 11:56 12/15/22 04:06 Micro: Microbiology 12/14/22 12:42 Blood Culture - Preliminary Blood SPECIMEN COLLECTED 12/14/22 12:48 Blood Culture - Preliminary Blood SPECIMEN COLLECTED A&P Assessment and plan (1) Acute hyponatremia: (2) Transaminitis: (3) Acute UTI: (4) 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: (5) CKD (chronic kidney disease): Qualifiers: Chronic kidney disease stage: stage 3 (moderate) Qualified Code(s): N18.3 - Chronic kidney disease, stage 3 (moderate) Plan Fatigue and lethargy related to hyponatremia and polypharmacy: Improving Sodium improving Blood pressure improved as well with IV fluid hydration Stress test on Friday Patient is hemodynamically stable Chronic kidney disease without acute worsening COVID has been ruled out Antihypertensive regimen may be restarted considering improvement in blood pressure Attestations Medical Necessity Statement*: Continue medical management Diagnoses Acute hyponatremia E87.1 Transaminitis R74.01 Acute UTI N39.0 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
[2022-12-15] MEDS: acetaminophen 500 mg Tablet PO (18:03)
[2022-12-15] MEDS: losartan 50 mg Tablet 100 MG PO (22:03)
[2022-12-15] MEDS: ALPRAZolam 0.5 mg Tablet 1 MG PO (22:04)
[2022-12-16 03:00] VITALS: BP 154/98; PULSE 105; RESP 18; TEMP 37; O2SAT 98
--- NOTE | 2022-12-16 05:00 | ECG_ITS ---
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 Interpretive Statements NAME OF STUDY: LEXISCAN SESTAMIBI STRESS TEST INDICATION: Unstable Angina , PROCEDURE: At the baseline, the EKG revealed sinus tachycardia with features of right bundle branch block. Some nonspecific T wave changes in the inferior leads. The baseline heart was 101 bpm with a blood pressue of 144/80 mm of Hg Lexiscan was infused over a period of 20 seconds. A total of 0.4 milligrams of Lexiscan was infused. The stress phase was continued for a total of 5 minutes. Heart rate at the end of the stress phase was 1 bpm with a blood pressure 136/80 mm of Hg. The EKG at the peak infusion revealed no significant changes. Sestamibi was injected 20 seconds after the Lexiscan infusion. Heart rate at the end of the recovery phase was 103 bpm with a blood pressure of 150/83 mm of Hg. CONCLUSION: 1. No significant EKG changes with the LexiScan infusion 2. No LexiScan induced chest pain or cardiac arrhythmia 3. Normal blood pressure and heart rate response 4. Sestamibi/sestamibi perfusion scan pending; see separate report. Electronically Signed On 12-16-2022 8:42:20 CDT by Nini Aquino M.D. [id number]
[2022-12-16 07:00] VITALS: BP 166/96; PULSE 108; RESP 18; TEMP 36.6; O2SAT 98
[2022-12-16] MEDS: regadenoson 0.4 Mg/5 ml Syringe IVP (07:44)
[2022-12-16 08:10] VITALS: BP 150/83; PULSE 103
--- NOTE | 2022-12-16 08:30 | NMCV_ITS ---
NM hayley perf SPECT r/s* [id number] Gricelda Andrade Age: 87 Gender: F : 1935 Exam Date: 12/16/2022 06:54 Ordering Phys: Jimbo Jackson MD Technologist: LEMUEL Ibanez Exam Location: [facility] Indications: CHEST PAIN STRESS TEST Please see separate stress test report in [facility] for full findings IMAGE PROTOCOL Rest/Stress 1 Lexiscan Day Radiopharmaceutical Dose (mCi) Administration Site Administered by Rest: Tc-99m 10.8 IV Dominick Lawler, ORE FIELDER Sestamibi Stress:Tc-99m 32.9 IV Dominick Lawler, ORE FIELDER Sestamibi Rest: 16-Dec-2022 60 Discovery 630 Stress: 16-Dec-2022 30 Discovery 630 0.4mg Lexiscan. Supine position only as patient was unable to lay prone. SPECT RESULTS Technical Quality: Excellent Raw Data Analysis: Normal Image Corrections: No attenuation or motion correction applied Summed Stress Score: 0 Summed Rest Score: 0 Summed Difference Score: 0 PERFUSION FINDINGS Uniform myocardial tracer uptake. No [place] occlusion abnormalities FUNCTIONAL RESULTS (calculated via Gated SPECT) Stress Image LV EF (%): 77 Stress EDV (mL):57 TID: 0.85 Stress ESV (mL):13 FUNCTIONAL FINDINGS: Segmental wall motion analysis revealing no gross wall motion abnormalities IMPRESSIONS 1. Unremarkable Myocardial perfusion imaging 2. Normal LV ejection fraction of 77% 3. LV wall motion analysis revealing no gross wall motion abnormalities. 4. Normal LV volume Low probability for coronary ischemia, based on the above findings Compared to the previous study from 02/09/2018, no significant change Dr Nini Aquino MD FACC (Electronically Signed) Final Date: 16 December 2022 16:49 S
[2022-12-16] MEDS: levothyroxine 50 mcg Tablet PO (09:37)
[2022-12-16] MEDS: acetaminophen 500 mg Tablet PO (09:37)
[2022-12-16] MEDS: sodium chloride 1 gm Tablet PO (09:38)
[2022-12-16] MEDS: ALPRAZolam 0.5 mg Tablet 1 MG PO (09:40)
--- NOTE | 2022-12-16 10:13 | PM.DCS ---
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 Patient was diagnosed with hyponatremia, urine culture showed 15 white count she remained afebrile, COVID PCR negative. Stress test was done which was unremarkable. Patient remained hypotensive and improved significantly with IV fluid hydration. At home she was using Lasix and multiple medications for her blood pressure. Her blood pressure was softer on admission which improved with IV fluid hydration. She had significant dehydration which improved. I have counseled patient to watch her blood pressure and be careful with her diuretic dose because she is suffering from polypharmacy. Sodium at the time of discharge is 128. Blood pressure and heart rate improved. She follows up with Dr. Aquino outpatient. Physical Exam Narrative: Awake and alert GCS 15 Pleasant and cooperative Currently on 2 L nasal cannula Abdomen soft Pleasant and cooperative S1, S2 variable Discharge Data Studies Completed and Pending Completed Studies During Hospitalization Category Date Time Status Sestamibi Stress Test Request Routine Exams 12/16/22 05:00 Completed XR chest 1V portable [id number] Stat Exams 12/14/22 11:38 Completed Pending at discharge Category Date Time Status Blood Culture Stat Lab 12/14/22 12:42 Results Urine Culture Stat Lab 12/14/22 13:45 Results NM hayley perf SPECT r/s* [id number] Routine Nuc Med 12/16/22 08:30 Taken Radiology Impressions Chest X-Ray 12/14/22 11:38 IMPRESSION: 1. No evidence of acute pulmonary process. 2. Moderate-sized hiatal hernia. Laboratory Results WBC 11.95 10^3/uL (3.29-11.43) H 12/14/22 11:56 RBC 3.56 10^6/uL (3.85-5.65) L 12/14/22 11:56 Hgb 10.10 g/dL (11.27-16.99) L 12/14/22 11:56 Hct 32.2 % (36-47) L 12/14/22 11:56 MCV 90.4 fl (85-98) 12/14/22 11:56 MCH 28.4 pg (27-33) 12/14/22 11:56 MCHC 31.4 g/dL (30-55) 12/14/22 11:56 RDW 13.3 % (12.1-15.1) 12/14/22 11:56 Plt Count 407 10^3/cmm (157-399) H 12/14/22 11:56 MPV 8.3 fL (7.4-10.4) 12/14/22 11:56 Neut % (Auto) 78.2 % 12/14/22 11:56 Lymph % (Auto) 8.4 % 12/14/22 11:56 Routt % (Auto) 11.8 % 12/14/22 11:56 Eos % (Auto) 0.5 % 12/14/22 11:56 Baso % (Auto) 0.5 % 12/14/22 11:56 Neut # (Auto) 9.35 10^3/uL (1.8-7.7) H 12/14/22 11:56 Lymph # (Auto) 1.0 10^3/uL (0.8-4.8) 12/14/22 11:56 [place] # (Auto) 1.4 10^3/uL (0.2-0.9) H 12/14/22 11:56 Eos # (Auto) 0.1 10^3/uL (0.0-0.8) 12/14/22 11:56 Baso # (Auto) 0.1 10^3/uL (0.0-0.1) 12/14/22 11:56 Nucleated RBC % (auto) 0 % 12/14/22 11:56 Nucleated RBCs # 0.0 /100WBC 12/14/22 11:56 Specimen Type Arterial 12/14/22 12:02 Sample Site Radial, right 12/14/22 12:02 ABG pH 7.43 (7.35-7.45) 12/14/22 12:02 ABG pCO2 47.4 mmHg (35-45) H 12/14/22 12:02 ABG pO2 56.5 mmHg (80.0-100.0) L 12/14/22 12:02 ABG HCO3 31.3 mmol/L (22-26) H 12/14/22 12:02 ABG O2 Saturation 89.9 12/14/22 12:02 ABG Base Excess 6.2 mmol/L (-2.0-2.0) H 12/14/22 12:02 Jovan Test Pos 12/14/22 12:02 A-a O2 Gradient 4.6 mmHg (5-10) L 12/14/22 12:02 Hematocrit 31.1 % (37-47) L 12/14/22 12:02 Hgb O2 Saturation 88.8 % (95-100) L 12/14/22 12:02 Carboxyhemoglobin 0.8 %THgb (0.4-20.1) 12/14/22 12:02 Methemoglobin 0.4 % (0.4-1.5) 12/14/22 12:02 Total Hemoglobin 10.1 g/dL (12-16) L 12/14/22 12:02 Sodium 127.0 mmol/L (131-143) L 12/14/22 12:02 Potassium 4.7 mmol/L (3.5-5.0) 12/14/22 12:02 Glucose 125.0 mg/dL (70-115) H 12/14/22 12:02 Ionized Calcium 1.3 mmol/L (1.1-1.4) 12/14/22 12:02 O2 Delivery Device Room air 12/14/22 12:02 Mobile Marketing Manager ID Waldo 12/14/22 12:02 Sodium 128 mmol/L (136-145) L 12/15/22 04:06 Potassium 4.2 mmol/L (3.5-5.1) 12/15/22 04:06 Chloride 92 mmol/L (98-107) L 12/15/22 04:06 Carbon Dioxide 29 mmol/L (22-29) 12/15/22 04:06 Anion Gap 11.2 (5-19) 12/15/22 04:06 BUN 14 mg/dL (8-23) 12/15/22 04:06 Creatinine 1.1 mg/dL (0.5-0.9) H 12/15/22 04:06 GFR Calculation Not Reportable 12/15/22 04:06 Glucose 95 mg/dL (65-115) 12/15/22 04:06 Estimat Average Glucose 120 12/14/22 11:56 Hemoglobin A1c 5.8 % (4.0-6.0) 12/14/22 11:56 Calculated Osmolality 266 mOsm/kg (285-295) L 12/15/22 04:06 Lactic Acid 1.6 mmol/L (0.5-2.2) 12/14/22 11:56 Calcium 9.4 mg/dL (8.5-10.5) 12/15/22 04:06 Magnesium 2.0 mg/dL (1.7-2.3) 12/15/22 04:06 Total Bilirubin 0.3 mg/dL (0.15-1.2) 12/14/22 11:56 AST 43 U/L (0-32) H 12/14/22 11:56 ALT 52 U/L (0-33) H 12/14/22 11:56 Alkaline Phosphatase 116 U/L (35-105) H 12/14/22 11:56 Troponin T Baseline 20 ng/L (0-10) H 12/14/22 11:56 Troponin T 120 Minute 19.27 ng/L (0-10) H 12/14/22 13:59 Delta Troponin T -0.73 ABS# (0-10) L 12/14/22 13:59 Troponin T Hi Sens 6Hr 17.01 ng/L (0-10) H 12/14/22 18:17 Troponin T Hi Sens 6Hr Delta -2.99 ng/L (0-12) L 12/14/22 18:17 C-Reactive Protein 212.6 mg/L (0.0-4.9) H 12/15/22 04:06 NT-Pro-B Natriuret Pep 3960 pg/mL (0-450) H 12/14/22 11:56 Total Protein 6.2 g/dL (6.6-8.7) L 12/14/22 11:56 Albumin 2.7 g/dL (3.5-5.2) L 12/14/22 11:56 Globulin 3.5 g/dL (1.3-4.6) 12/14/22 11:56 Vitamin B12 820 pg/mL (232-1245) 12/14/22 13:59 Urine Color Straw (Yellow) 12/14/22 13:45 Urine Appearance Clear (CLEAR) 12/14/22 13:45 Urine pH 6.5 (5-7) 12/14/22 13:45 Ur Specific [place] 1.000 (1.005-1.030) L 12/14/22 13:45 Urine Protein Neg (Negative) 12/14/22 13:45 Urine Glucose (UA) Norm (Normal) 12/14/22 13:45 Urine Ketones Negative (Negative) 12/14/22 13:45 Urine Blood Neg (Negative) 12/14/22 13:45 Urine Nitrate Negative (Negative) 12/14/22 13:45 Urine Bilirubin Neg (Negative) 12/14/22 13:45 Urine Urobilinogen Norm mg/dL (Negative) 12/14/22 13:45 Ur Leukocyte Esterase 1+ (Negative) H 12/14/22 13:45 Urine RBC None /hpf (0-2) 12/14/22 13:45 Urine WBC 10-15 /hpf (0-5) H 12/14/22 13:45 Ur Squamous Epith Cells 5-10 /hpf (0-5) H 12/14/22 13:45 Amorphous Sediment Not Reportable 12/14/22 13:45 Urine Bacteria 3+ /hpf (NONE) H 12/14/22 13:45 Coronavirus 229E (PCR) Not detected (NOT DETECT) 12/14/22 15:50 SARS-CoV-2 (PCR) Not detected (NOT DETECT) 12/14/22 15:50 Vitals Last Vital Signs Temp 97.9 F 12/16/22 07:00 Pulse 103 H 12/16/22 08:10 Resp 18 12/16/22 07:00 BP 150/83 12/16/22 08:10 Pulse Ox 98 12/16/22 07:00 O2 Del Method Nasal Cannula 12/16/22 07:00 O2 Flow Rate 2.5 12/16/22 03:00 Discharge Plan Discharge Patient Disposition: Home Condition: Stable Prescriptions: New sodium chloride 1,000 mg Tablet,Soluble 1 g PO BID Qty: 4 0RF Continued cholecalciferol (vitamin D3) 25 mcg (1,000 unit) capsule 25 mcg PO DAILY Patient Comments: unknown dose pantoprazole 40 mg tablet,delayed release (DR/EC) 40 mg PO DAILY levothyroxine 50 mcg capsule 50 mcg PO DAILY alprazolam [Xanax] 0.5 mg tablet 1 mg PO BID isosorbide mononitrate 30 mg tablet extended release 24 hr 30 mg PO DAILY calcium and magnesium carbonat 975-232 mg tablet 1 tab PO DAILY multivitamin Tablet 1 tab PO DAILY PreserVision AREDS-2 250-90-40-1 mg capsule 1 tab PO BID Adult 50 Plus Probiotic 4 billion cell capsule 4,000 mmu cells PO DAILY Rx Instructions: administer with a meal losartan 100 mg tablet 100 mg PO DAILY 30 Days Qty: 30 5RF potassium chloride 8 mEq capsule, extended release 8 meq PO DAILY Qty: 30 0RF acetaminophen-codeine 300-30 mg tablet 1 tab PO BID Aspir-81 81 mg Tablet,Delayed Release (Dr/Ec) 81 mg PO DAILY carvedilol 6.25 mg tablet 12.5 mg PO BID Qty: 60 0RF Changed furosemide 20 mg tablet 20 mg PO DAILY PRN (Reason: Greater than 3 pounds weight gain per day) Qty: 30 0RF Referrals: Elmo Staton DO [Primary Care Provider] - 1 week Patient Instructions: Opioid Safety Discharge Attestations Time Spent in Discharge Care*: greater than 30 min Quality Metrics Clinical Quality Measures [ No reported AMI, CVA or VTE this stay] Coding Level of Care Code Acute Code for Chg Fwd Diagnoses Acute hyponatremia E87.1 Transaminitis R74.01 Acute UTI N39.0 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
[2022-12-16 11:00] VITALS: BP 145/90; PULSE 106; RESP 17; TEMP 36.8; O2SAT 96
[2022-12-16 11:45] VITALS: O2SAT 92; O2SAT 93
[2022-12-16 12:19] VITALS: BP 145/90; PULSE 106; RESP 17; TEMP 36.8; O2SAT 96
== END 2022-12-16 12:38 | disposition home or self-care (01) ==
LOC: ER 13:03 → MEDSURG 14:22
PROVIDERS: Admitting Provider Internal Medicine; Emergency Provider Family Medicine; PCP Electrodiagnostic Medicine; Visit Provider Internal Medicine
DX: I25.110 Atherosclerotic heart disease of native coronary artery with unstable angina pectoris (principal); E87.1 Hypo-osmolality and hyponatremia; R74.01 Elevation of levels of liver transaminase levels; N39.0 Urinary tract infection, site not specified; I13.0 Hypertensive heart and chronic kidney disease with heart failure and stage 1 through stage 4 chronic kidney disease, or unspecified chronic kidney disease; N18.30 Chronic kidney disease, stage 3 unspecified; I50.32 Chronic diastolic (congestive) heart failure; E78.5 Hyperlipidemia, unspecified; I25.5 Ischemic cardiomyopathy; Z82.49 Family history of ischemic heart disease and other diseases of the circulatory system; K44.9 Diaphragmatic hernia without obstruction or gangrene; I45.10 Unspecified right bundle-branch block
CPT/HCPCS: 36415; 36600; 71045; 78452; 80048; 80051; 80053; 81001; 82330; 82607; 82805; 83036; 83605; 83735; 83880; 84484; 85025; 86140; 87040; 87077; 87086; 87186; 87635; 93005; 93017; 94760; 96365; 96375; 97110; 97161; 99285; A9500; G0378; J0696; J2785; J7030; J7040

== ENCOUNTER 2022-12-20 14:09 | Inpatient (IN) | payer MEDICARE, OTHER, SELFPAY ==
[2022-12-20 14:09] VITALS: BP 102/69; PULSE 104; RESP 18; TEMP 36.8; O2SAT 97; BMI 26.4
--- NOTE | 2022-12-20 14:11 | XR_ITS ---
WS: [id number] Portable AP upright chest, 12/20/2022 Clinical Data: dyspnea/cough Comparison: Portable chest, 12/14/2022 Findings: No nodules, masses or effusions are seen. The heart is normal. The pulmonary vascularity is not increased. No pneumonia or pneumothorax is seen. The aortic arch and descending thoracic aorta s how tortuosity. There is a hiatal hernia behind the heart. There are calcified granulomas throughout both lungs. 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 There is a dextroscoliosis of the tho racic spine. Impression: Atherosclerosis.
--- NOTE | 2022-12-20 14:13 | ED_ITS ---
Documented by User: Skyler Spear DO 12/30/22 06:45 HPI - Weakness General: Chief complaint: Weakness Stated complaint: weakness Time Seen by Provider: 12/20/22 14:10 Source: patient Mode of arrival: ambulatory History of Present Illness: 87-year-old female arrives from the senior living with complaints of weakness and altered mental status she was recently hospitalized on 12/14 she was [facility] withThroughout 12/16. TIA and mild hyponatremia. She returns today saying she just does not feel good she is now requiring some oxygen she normally is not on oxygen she is not requiring fever sweats or chills. She denies any chest pain no abdominal pain no dysuria urgency or frequency. MD Complaint: generalized weakness Location: generalized Relieving factors: none Exacerbating factors: none Associated symptoms: Reports decreased appetite; Denies chest pain, chills, confusion, melena, diaphoresis, dysuria, easy bruising, fever(s), headache(s), myalgias, nausea, rash, short of breath, syncope or vomiting Review of Systems Const: Denies: fever(s), chills or diaphoresis Card: Denies: chest pain or syncope Resp: Denies: dyspnea GI: Denies: abdominal pain, nausea, vomiting or melena : Denies: dysuria, urinary frequency or urinary urgency Musc: Denies: neck pain or back pain Skin/Breast: Denies: rash Neuro: Denies: headache(s) or confusion Rob/Lymph: Denies: easy bruising PFSH ED PFSH: Medical History (Updated 12/26/22 @ 00:02 by REGINO Phillip) Acute hyponatremia Acute UTI ASHD (arteriosclerotic heart disease) 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 CKD (chronic kidney disease) Hyperlipidemia Hypertension Ischemic cardiomyopathy SOB (shortness of breath) Spondylosis Transaminitis Surgical History H/O cataract extraction H/O: knee surgery Hx of cholecystectomy Family History Mother CAD (coronary artery disease) Daughter CAD (coronary artery disease) Family/Other CAD (coronary artery disease) Grandfather CAD (coronary artery disease) Son Cancer Denies family history of Diabetes Clotting disorder Dementia Chronic kidney disease (CKD) Suicide Anesthesia complication Bleeding disorder Lung disease Stroke Social History Smoking and tobacco/nicotine status: never used tobacco/nicotine Alcohol intake: never Substance/Drug Use: never Physical Exam Const: GENERAL APPEARANCE: cooperative and comfortable ORIENTATION/CONSCIOUSNESS: Yes awake HENMT: COMMON NORMALS: normocephalic, atraumatic and hearing grossly normal bilaterally HEAD & SCALP: normocephalic and atraumatic Resp: COMMON NORMALS: normal respiratory effort, No retractions, No use of accessory muscles and clear to auscultation bilaterally AUSCULTATION: clear to auscultation bilaterally Cardio: COMMON NORMALS: regular rate, regular rhythm and No murmurs present (Cardio) RATE: regular rate RHYTHM: regular rhythm GI: COMMON NORMALS: Soft to palpation and No hepatosplenomegaly present AUSCULTATION: Yes normoactive bowel sounds PALPATION: Yes Soft to palpation, No Tenderness to palpation present (GI), No Guarding due to palpation present (GI) and Yes No hepatosplenomegaly present Extremity: COMMON NORMALS: normal to inspection, capillary refill normal, no clubbing, cyanosis or edema, no calf tenderness and no pedal edema Skin: COMMON NORMALS: no rashes or lesions noted GENERAL SKIN EXAM: no rashes or lesions noted Course Vital Signs: Vital signs: Vital Signs Temperature 97.5 F L 12/25/22 15:26 Pulse Rate 84 12/25/22 15:26 Respiratory Rate 18 12/25/22 15:26 Blood Pressure 164/94 12/25/22 15:26 Pulse Oximetry 98 12/25/22 15:26 Oxygen Delivery Me thod Nasal Cannula 12/25/22 12:00 Oxygen Flow Rate 2 12/25/22 13:23 MDM - Weakness Medical Decision Making Care signed out to Dr. Beyer at change of shift. See final notes for diagnosis and disposition. 87 female checked out to me at shift change by Dr. Brady. This lady comes in short of breath and generally weak. She was hypoxic on arrival. Improved on 2 L. Initial sats were in the mid 80s. On retesting, she did desaturate to the mid 80s again. Her white blood cell count is 14. She is mildly tachycardic. Creatinine is 1. BNP is elevated. She was given Lasix for this. His CTA of the chest done due to D dimer elevation shows groundglass opacity anterior lower lungs right greater than left with infiltrative process suspected. She is placed on antibiotics after blood cultures. Respiratory panel is pending. Hospitalist will see the patient Lab Data 12/25/22 04:31 12/25/22 04:31 Radiology Impressions Venous Duplex 12/20/22 17:04 IMPRESSION: No evidence of deep vein thrombosis. Chest CTA 12/20/22 17:05 IMPRESSION: 1. No CT findings to indicate pulmonary embolus. 2. Hazy ground-glass opacity within the anterior lower lungs, qsgwh-hnldfkm-atgc-left, on the lung windows. Consider mild infiltrate and less likely focal edema. No consolidation. 3. Other chronic nonacute findings as noted above. Head CT 12/24/22 03:31 IMPRESSION: Mild small vessel disease. No evidence of acute intracranial process. Laboratory Results WBC 11.36 10^3/uL (3.29-11.43) 12/21/22 03:48 RBC 3.51 10^6/uL (3.85-5.65) L 12/21/22 03:48 Hgb 9.70 g/dL (11.27-16.99) L 12/21/22 03:48 Hct 31.9 % (36-47) L 12/21/22 03:48 MCV 90.9 fl (85-98) 12/21/22 03:48 MCH 27.6 pg (27-33) 12/21/22 03:48 MCHC 30.4 g/dL (30-55) 12/21/22 03:48 RDW 13.9 % (12.1-15.1) 12/21/22 03:48 Plt Count 415 10^3/cmm (157-399) H 12/21/22 03:48 MPV 8.4 fL (7.4-10.4) 12/21/22 03:48 Neut % (Auto) 77.1 % 12/21/22 03:48 Lymph % (Auto) 9.7 % 12/21/22 03:48 [place] % (Auto) 11.4 % 12/21/22 03:48 Eos % (Auto) 0.8 % 12/21/22 03:48 Baso % (Auto) 0.3 % 12/21/22 03:48 Neut # (Auto) 8.77 10^3/uL (1.8-7.7) H 12/21/22 03:48 Lymph # (Auto) 1.1 10^3/uL (0.8-4.8) 12/21/22 03:48 [place] # (Auto) 1.3 10^3/uL (0.2-0.9) H 12/21/22 03:48 Eos # (Auto) 0.1 10^3/uL (0.0-0.8) 12/21/22 03:48 Baso # (Auto) 0.0 10^3/uL (0.0-0.1) 12/21/22 03:48 Nucleated RBC % (auto) 0 % 12/21/22 03:48 Nucleated RBCs # 0.0 /100WBC 12/21/22 03:48 D-Dimer 2.34 ug/mLFEU (0-0.59) H 12/20/22 14:15 Specimen Type Arterial 12/21/22 01:41 Sample Site Radial, right 12/21/22 01:41 ABG pH 7.36 (7.35-7.45) 12/21/22 01:41 ABG pCO2 58.4 mmHg (35-45) H 12/21/22 01:41 ABG pO2 63.8 mmHg (80.0-100.0) L 12/21/22 01:41 ABG HCO3 32.6 mmol/L (22-26) H 12/21/22 01:41 ABG O2 Saturation 91.3 12/21/22 01:41 ABG Base Excess 5.7 mmol/L (-2.0-2.0) H 12/21/22 01:41 Jovan Test Pos 12/21/22 01:41 A-a O2 Gradient 1.8 mmHg (5-10) L 12/21/22 01:41 Hematocrit 35.4 % (37-47) L 12/21/22 01:41 Hgb O2 Saturation 90.6 % (95-100) L 12/21/22 01:41 Carboxyhemoglobin 0.8 %THgb (0.4-20.1) 12/21/22 01:41 Methemoglobin 0.0 % (0.4-1.5) L 12/21/22 01:41 Total Hemoglobin 11.6 g/dL (12-16) L 12/21/22 01:41 Sodium 135.0 mmol/L (131-143) 12/21/22 01:41 Potassium 3.5 mmol/L (3.5-5.0) 12/21/22 01:41 Glucose 105.0 mg/dL (70-115) 12/21/22 01:41 Ionized Calcium 1.4 mmol/L (1.1-1.4) 12/21/22 01:41 O2 Delivery Device Nc 12/21/22 01:41 O2 Liters/Min 2.0 % 12/21/22 01:41 Supervisor Brake Repair ID [id number] 12/21/22 01:41 Sodium 135 mmol/L (136-145) L 12/21/22 03:48 Potassium 3.7 mmol/L (3.5-5.1) 12/21/22 03:48 Chloride 93 mmol/L (98-107) L 12/21/22 03:48 Carbon Dioxide 33 mmol/L (22-29) H 12/21/22 03:48 Anion Gap 12.7 (5-19) 12/21/22 03:48 BUN 17 mg/dL (8-23) 12/21/22 03:48 Creatinine 1.1 mg/dL (0.5-0.9) H 12/21/22 03:48 GFR Calculation Not Reportable 12/21/22 03:48 Glucose 99 mg/dL (65-115) 12/21/22 03:48 Calculated Osmolality 282 mOsm/kg (285-295) L 12/21/22 03:48 Calcium 10.0 mg/dL (8.5-10.5) 12/21/22 03:48 Magnesium 1.8 mg/dL (1.7-2.3) 12/21/22 03:48 Total Bilirubin 0.6 mg/dL (0.15-1.2) 12/21/22 03:48 AST 56 U/L (0-32) H 12/21/22 03:48 ALT 62 U/L (0-33) H 12/21/22 03:48 Alkaline Phosphatase 133 U/L (35-105) H 12/21/22 03:48 Troponin T Baseline 27 ng/L (0-10) H 12/20/22 14:15 Troponin T 120 Minute 26.83 ng/L (0-10) H 12/20/22 16:34 Delta Troponin T -0.17 ABS# (0-10) L 12/20/22 16:34 Troponin T Hi Sens 6Hr 24.07 ng/L (0-10) H 12/20/22 20:08 Troponin T Hi Sens 6Hr Delta -2.93 ng/L (0-12) L 12/20/22 20:08 NT-Pro-B Natriuret Pep 5074 pg/mL (0-450) H 12/21/22 03:48 Total Protein 6.2 g/dL (6.6-8.7) L 12/21/22 03:48 Albumin 2.6 g/dL (3.5-5.2) L 12/21/22 03:48 Globulin 3.6 g/dL (1.3-4.6) 12/21/22 03:48 Urine Color Yellow (Yellow) 12/20/22 16:56 Urine Appearance Hazy (CLEAR) A 12/20/22 16:56 Urine pH 5 (5-7) 12/20/22 16:56 Ur Specific [place] 1.020 (1.005-1.030) 12/20/22 16:56 Urine Protein Neg (Negative) 12/20/22 16:56 Urine Glucose (UA) Norm (Normal) 12/20/22 16:56 Urine Ketones Negative (Negative) 12/20/22 16:56 Urine Blood Neg (Negative) 12/20/22 16:56 Urine Nitrate Positive (Negative) H 12/20/22 16:56 Urine Bilirubin 1+ (Negative) H 12/20/22 16:56 Urine Urobilinogen 4 mg/dL (Negative) H 12/20/22 16:56 Ur Leukocyte Esterase Negative (Negative) 12/20/22 16:56 Urine RBC None /hpf (0-2) 12/20/22 16:56 Urine WBC None /hpf (0-5) 12/20/22 16:56 Ur Squamous Epith Cells 5-10 /hpf (0-5) H 12/20/22 16:56 Amorphous Sediment Not Reportable 12/20/22 16:56 Urine Bacteria 4+ /hpf (NONE) H 12/20/22 16:56 Nasal Influ A H1 2009 PCR Not detected (NOT DETECT) 12/20/22 21:38 Adenovirus (PCR) Not detected (NOT DETECT) 12/20/22 21:38 C. pneumoniae DNA (PCR) Not detected (NOT DETECT) 12/20/22 21:38 Coronavirus 229E (PCR) Not detected (NOT DETECT) 12/20/22 21:38 Human Metapneumovir PCR Not detected (NOT DETECT) 12/20/22 21:38 Influenza A (H1) PCR Not detected (NOT DETECT) 12/20/22 21:38 Influenza A (H3) PCR Not detected (NOT DETECT) 12/20/22 21:38 Influenza Type A (PCR) Not detected (NOT DETECT) 12/20/22 21:38 Influenza Type B (PCR) Not detected (NOT DETECT) 12/20/22 21:38 M. pneumoniae (PCR) Not detected (NOT DETECT) 12/20/22 21:38 Parainfluenza 1 (PCR) Not detected (NOT DETECT) 12/20/22 21:38 Parainfluenza 2 (PCR) Not detected (NOT DETECT) 12/20/22 21:38 Parainfluenza 3 (PCR) Not detected (NOT DETECT) 12/20/22 21:38 Parainfluenza 4 (PCR) Not detected (NOT DETECT) 12/20/22 21:38 RSV Type A (PCR) Not detected (NOT DETECT) 12/20/22 21:38 RSV Type B (PCR) Not detected (NOT DETECT) 12/20/22 21:38 Entero/Rhino (PCR) Not detected (NOT DETECT) 12/20/22 21:38 SARS-CoV-2 (PCR) Not detected (NOT DETECT) 12/20/22 21:38 Discharge Plan Discharge Patient Disposition: Placed in Observation Admit Provider: Melani Rodriguez Clinical Impression: Pneumonia, Acute hypoxic respiratory failure Discharge Diet: Cardiac Discharge Activity: Resume usual activity Coding Level of Care Code ED Sales Order Specialist for [facility] Documented by User: Garrett Beyer, DO 12/20/22 21:16 HPI - Weakness General: Chief complaint: Weakness Stated complaint: weakness Time Seen by Provider: 12/20/22 14:10 PFSH ED PFSH: Medical History (Updated 12/26/22 @ 00:02 by REGINO Phillip) Acute hyponatremia Acute UTI ASHD (arteriosclerotic heart disease) 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 CKD (chronic kidney disease) Hyperlipidemia Hypertension Ischemic cardiomyopathy SOB (shortness of breath) Spondylosis Transaminitis Surgical History H/O cataract extraction H/O: knee surgery Hx of cholecystectomy Family History Mother CAD (coronary artery disease) Daughter CAD (coronary artery disease) Family/Other CAD (coronary artery disease) Grandfather CAD (coronary artery disease) Son Cancer Denies family history of Diabetes Clotting disorder Dementia Chronic kidney disease (CKD) Suicide Anesthesia complication Bleeding disorder Lung disease Stroke Social History Smoking and tobacco/nicotine status: never used tobacco/nicotine Alcohol intake: never Substance/Drug Use: never Course Vital Signs: Vital signs: Vital Signs Temperature 97.5 F L 12/25/22 15:26 Pulse Rate 84 12/25/22 15:26 Respiratory Rate 18 12/25/22 15:26 Blood Pressure 164/94 12/25/22 15:26 Pulse Oximetry 98 12/25/22 15:26 Oxygen Delivery Me thod Nasal Cannula 12/25/22 12:00 Oxygen Flow Rate 2 12/25/22 13:23 MDM - Weakness Medical Decision Making 87 female checked out to me at shift change by Dr. Brady. This lady comes in short of breath and generally weak. She was hypoxic on arrival. Improved on 2 L. Initial sats were in the mid 80s. On retesting, she did desaturate to the mid 80s again. Her white blood cell count is 14. She is mildly tachycardic. Creatinine is 1. BNP is elevated. She was given Lasix for this. His CTA of the chest done due to D dimer elevation shows groundglass opacity anterior lower lungs right greater than left with infiltrative process suspected. She is placed on antibiotics after blood cultures. Respiratory panel is pending. Hospitalist will see the patient Lab Data 12/25/22 04:31 12/25/22 04:31 Radiology Impressions Venous Duplex 12/20/22 17:04 IMPRESSION: No evidence of deep vein thrombosis. Chest CTA 12/20/22 17:05 IMPRESSION: 1. No CT findings to indicate pulmonary embolus. 2. Hazy ground-glass opacity within the anterior lower lungs, upuzz-dikkkso-yxuq-left, on the lung windows. Consider mild infiltrate and less likely focal edema. No consolidation. 3. Other chronic nonacute findings as noted above. Head CT 12/24/22 03:31 IMPRESSION: Mild small vessel disease. No evidence of acute intracranial process. Laboratory Results WBC 11.36 10^3/uL (3.29-11.43) 12/21/22 03:48 RBC 3.51 10^6/uL (3.85-5.65) L 12/21/22 03:48 Hgb 9.70 g/dL (11.27-16.99) L 12/21/22 03:48 Hct 31.9 % (36-47) L 12/21/22 03:48 MCV 90.9 fl (85-98) 12/21/22 03:48 MCH 27.6 pg (27-33) 12/21/22 03:48 MCHC 30.4 g/dL (30-55) 12/21/22 03:48 RDW 13.9 % (12.1-15.1) 12/21/22 03:48 Plt Count 415 10^3/cmm (157-399) H 12/21/22 03:48 MPV 8.4 fL (7.4-10.4) 12/21/22 03:48 Neut % (Auto) 77.1 % 12/21/22 03:48 Lymph % (Auto) 9.7 % 12/21/22 03:48 [place] % (Auto) 11.4 % 12/21/22 03:48 Eos % (Auto) 0.8 % 12/21/22 03:48 Baso % (Auto) 0.3 % 12/21/22 03:48 Neut # (Auto) 8.77 10^3/uL (1.8-7.7) H 12/21/22 03:48 Lymph # (Auto) 1.1 10^3/uL (0.8-4.8) 12/21/22 03:48 [place] # (Auto) 1.3 10^3/uL (0.2-0.9) H 12/21/22 03:48 Eos # (Auto) 0.1 10^3/uL (0.0-0.8) 12/21/22 03:48 Baso # (Auto) 0.0 10^3/uL (0.0-0.1) 12/21/22 03:48 Nucleated RBC % (auto) 0 % 12/21/22 03:48 Nucleated RBCs # 0.0 /100WBC 12/21/22 03:48 D-Dimer 2.34 ug/mLFEU (0-0.59) H 12/20/22 14:15 Specimen Type Arterial 12/21/22 01:41 Sample Site Radial, right 12/21/22 01:41 ABG pH 7.36 (7.35-7.45) 12/21/22 01:41 ABG pCO2 58.4 mmHg (35-45) H 12/21/22 01:41 ABG pO2 63.8 mmHg (80.0-100.0) L 12/21/22 01:41 ABG HCO3 32.6 mmol/L (22-26) H 12/21/22 01:41 ABG O2 Saturation 91.3 12/21/22 01:41 ABG Base Excess 5.7 mmol/L (-2.0-2.0) H 12/21/22 01:41 Jovan Test Pos 12/21/22 01:41 A-a O2 Gradient 1.8 mmHg (5-10) L 12/21/22 01:41 Hematocrit 35.4 % (37-47) L 12/21/22 01:41 Hgb O2 Saturation 90.6 % (95-100) L 12/21/22 01:41 Carboxyhemoglobin 0.8 %THgb (0.4-20.1) 12/21/22 01:41 Methemoglobin 0.0 % (0.4-1.5) L 12/21/22 01:41 Total Hemoglobin 11.6 g/dL (12-16) L 12/21/22 01:41 Sodium 135.0 mmol/L (131-143) 12/21/22 01:41 Potassium 3.5 mmol/L (3.5-5.0) 12/21/22 01:41 Glucose 105.0 mg/dL (70-115) 12/21/22 01:41 Ionized Calcium 1.4 mmol/L (1.1-1.4) 12/21/22 01:41 O2 Delivery Device Nc 12/21/22 01:41 O2 Liters/Min 2.0 % 12/21/22 01:41 Supervisor Brake Repair ID [id number] 12/21/22 01:41 Sodium 135 mmol/L (136-145) L 12/21/22 03:48 Potassium 3.7 mmol/L (3.5-5.1) 12/21/22 03:48 Chloride 93 mmol/L (98-107) L 12/21/22 03:48 Carbon Dioxide 33 mmol/L (22-29) H 12/21/22 03:48 Anion Gap 12.7 (5-19) 12/21/22 03:48 BUN 17 mg/dL (8-23) 12/21/22 03:48 Creatinine 1.1 mg/dL (0.5-0.9) H 12/21/22 03:48 GFR Calculation Not Reportable 12/21/22 03:48 Glucose 99 mg/dL (65-115) 12/21/22 03:48 Calculated Osmolality 282 mOsm/kg (285-295) L 12/21/22 03:48 Calcium 10.0 mg/dL (8.5-10.5) 12/21/22 03:48 Magnesium 1.8 mg/dL (1.7-2.3) 12/21/22 03:48 Total Bilirubin 0.6 mg/dL (0.15-1.2) 12/21/22 03:48 AST 56 U/L (0-32) H 12/21/22 03:48 ALT 62 U/L (0-33) H 12/21/22 03:48 Alkaline Phosphatase 133 U/L (35-105) H 12/21/22 03:48 Troponin T Baseline 27 ng/L (0-10) H 12/20/22 14:15 Troponin T 120 Minute 26.83 ng/L (0-10) H 12/20/22 16:34 Delta Troponin T -0.17 ABS# (0-10) L 12/20/22 16:34 Troponin T Hi Sens 6Hr 24.07 ng/L (0-10) H 12/20/22 20:08 Troponin T Hi Sens 6Hr Delta -2.93 ng/L (0-12) L 12/20/22 20:08 NT-Pro-B Natriuret Pep 5074 pg/mL (0-450) H 12/21/22 03:48 Total Protein 6.2 g/dL (6.6-8.7) L 12/21/22 03:48 Albumin 2.6 g/dL (3.5-5.2) L 12/21/22 03:48 Globulin 3.6 g/dL (1.3-4.6) 12/21/22 03:48 Urine Color Yellow (Yellow) 12/20/22 16:56 Urine Appearance Hazy (CLEAR) A 12/20/22 16:56 Urine pH 5 (5-7) 12/20/22 16:56 Ur Specific [place] 1.020 (1.005-1.030) 12/20/22 16:56 Urine Protein Neg (Negative) 12/20/22 16:56 Urine Glucose (UA) Norm (Normal) 12/20/22 16:56 Urine Ketones Negative (Negative) 12/20/22 16:56 Urine Blood Neg (Negative) 12/20/22 16:56 Urine Nitrate Positive (Negative) H 12/20/22 16:56 Urine Bilirubin 1+ (Negative) H 12/20/22 16:56 Urine Urobilinogen 4 mg/dL (Negative) H 12/20/22 16:56 Ur Leukocyte Esterase Negative (Negative) 12/20/22 16:56 Urine RBC None /hpf (0-2) 12/20/22 16:56 Urine WBC None /hpf (0-5) 12/20/22 16:56 Ur Squamous Epith Cells 5-10 /hpf (0-5) H 12/20/22 16:56 Amorphous Sediment Not Reportable 12/20/22 16:56 Urine Bacteria 4+ /hpf (NONE) H 12/20/22 16:56 Nasal Influ A H1 2009 PCR Not detected (NOT DETECT) 12/20/22 21:38 Adenovirus (PCR) Not detected (NOT DETECT) 12/20/22 21:38 C. pneumoniae DNA (PCR) Not detected (NOT DETECT) 12/20/22 21:38 Coronavirus 229E (PCR) Not detected (NOT DETECT) 12/20/22 21:38 Human Metapneumovir PCR Not detected (NOT DETECT) 12/20/22 21:38 Influenza A (H1) PCR Not detected (NOT DETECT) 12/20/22 21:38 Influenza A (H3) PCR Not detected (NOT DETECT) 12/20/22 21:38 Influenza Type A (PCR) Not detected (NOT DETECT) 12/20/22 21:38 Influenza Type B (PCR) Not detected (NOT DETECT) 12/20/22 21:38 M. pneumoniae (PCR) Not detected (NOT DETECT) 12/20/22 21:38 Parainfluenza 1 (PCR) Not detected (NOT DETECT) 12/20/22 21:38 Parainfluenza 2 (PCR) Not detected (NOT DETECT) 12/20/22 21:38 Parainfluenza 3 (PCR) Not detected (NOT DETECT) 12/20/22 21:38 Parainfluenza 4 (PCR) Not detected (NOT DETECT) 12/20/22 21:38 RSV Type A (PCR) Not detected (NOT DETECT) 12/20/22 21:38 RSV Type B (PCR) Not detected (NOT DETECT) 12/20/22 21:38 Entero/Rhino (PCR) Not detected (NOT DETECT) 12/20/22 21:38 SARS-CoV-2 (PCR) Not detected (NOT DETECT) 12/20/22 21:38 All radiology interpretation(s) finalized by discharge Discharge Plan Discharge Patient Disposition: Placed in Observation Admit Provider: Melani Rodriguez Clinical Impression: Pneumonia, Acute hypoxic respiratory failure Discharge Diet: Cardiac Discharge Activity: Resume usual activity Coding Level of Care Code ED Sales Order Specialist for [facility] Peggy
[2022-12-20 14:24] LABS: Basophils # 0.1 10^3/uL (0.0-0.1); Basophils % 0.4 %; Eosinophils # 0.1 10^3/uL (0.0-0.8); Eosinophils % 0.4 %; Hematocrit 32.9 % (36-47); Lymphocytes % 6.9 %; Mean Corpuscular Hemoglobin 27.9 pg (27-33); Mean Corpuscular Volume 89.9 fl (85-98); Mean Platelet Volume 8.6 fL (7.4-10.4); Monocytes # 1.3 10^3/uL (0.2-0.9); Monocytes % 9.1 %; Neutrophils # 11.62 10^3/uL (1.8-7.7); Neutrophils % 82.3 %; Nucleated Red Blood Cells % 0 %; Platelet Count 472 10^3/cmm (157-399); Red Blood Count 3.66 10^6/uL (3.85-5.65); Red Cell Distribution Width 13.7 % (12.1-15.1); White Blood Count 14.11 10^3/uL (3.29-11.43)
[2022-12-20 14:44] LABS: Alanine Aminotransferase 59 U/L (0-33); Alkaline Phosphatase 139 U/L (35-105); Anion Gap 15.1 (5-19); Aspartate Amino Transferase 54 U/L (0-32); Blood Urea Nitrogen 16 mg/dL (8-23); Calcium 10.1 mg/dL (8.5-10.5); Carbon Dioxide 28 mmol/L (22-29); Chloride 94 mmol/L (98-107); Globulin 3.4 g/dL (1.3-4.6); Glucose 173 mg/dL (65-115); Osmolality Calculated 281 mOsm/kg (285-295); Potassium 4.1 mmol/L (3.5-5.1); Sodium 133 mmol/L (136-145); Total Bilirubin 0.4 mg/dL (0.15-1.2); Total Protein 6.4 g/dL (6.6-8.7)
--- NOTE | 2022-12-20 15:12 | PC.PHAR ---
Addendum entered by [place] Nicole 12/20/22 15:15: pts daughter states the amlodipine 5mg daily and lipitor 10mg was dced Original Note: pts daughter verified pts medications-pts daughter states the pt takes tylenol #3 one tab bid ext shows last filled 1 tab tid-pts daughter states the pt takes kcl 8meq and lasix 20mg daily prn-pts daughter states the pt finished the sodium chloride 1000mg bid on 12/19/22-pts daughter states the pt takes imdur mono er 30mg qpm ext shows last filled 11/20/22 90d/s-notes are made in the pharmacy comments
--- NOTE | 2022-12-20 15:54 | ECG_ITS ---
[facility] Test Date: 2022-12-20 Pat Name: Gricelda Andrade Department: Room: Gender: Female Pulverizer Tender: : 1935 Requested By: Skyler Couch Order Number: [id number] Britt MD: Diego Christy M.D. Measurements Intervals [place] Rate: 99 P: 47 LA: 140 QRS: 16 QRSD: 119 T: -24 QT: 324 QTc: 417 Interpretive Statements SINUS RHYTHM INCOMPLETE RIGHT BUNDLE BRANCH BLOCK [90+ ms QRS DURATION, TERMINAL R IN V1/V2, 40+ ms S IN I/aVL/V4/V5/V6] ST DEVIATION AND MODERATE T-WAVE ABNORMALITY, CONSIDER ANTERIOR ISCHEMIA [-0.1+ mV T-WAVE IN V3/V4] Compared to ECG 12/14/2022 11:11:25 Sinus tachycardia no longer present T-wave abnormality still present Possible ischemia still present Electronically Signed On 12-20-2022 15:59:52 CDT by Diego Christy M.D. [email or web address]
[2022-12-20 16:36] LABS: D Dimer 2.34 ug/mLFEU (0-0.59)
[2022-12-20 16:37] LABS: Troponin(5th) Baseline 27 ng/L (0-10)
[2022-12-20 16:51] LABS: NT Pro B Type Natriuretic Pept 7119 pg/mL (0-450)
--- NOTE | 2022-12-20 17:04 | USR_ITS ---
PROCEDURE INFORMATION: Exam: US Duplex Lower Extremity Veins, Bilateral Exam date and time: 12/20/2022 5:34 PM Age: 87 years old Clinical indication: Swelling (edema) of limb; Lower extremity, bilateral; Additional info: Leg swelling TECHNIQUE: Imaging protocol: Real-time duplex ultrasound of the bilateral extremities with 2-D rodriguez scale, color Doppler flow and spectral waveform analysis including responses to compression and other maneuvers (when performed) with image documentation. Complete exam focused on the lower extremity veins. COMPARISON: US renal BI* [id number] 11/12/2018 3:47 PM FINDINGS: Right deep veins: Unremarkable. The common femoral, femoral, proximal profunda femoral and popliteal veins are patent without thrombus as well as visualized calf veins. Normal Doppler waveforms. Normal compressibility and/or augmentation response. Left deep veins: Unremarkable. The common femoral, femoral, proximal profunda femoral and popliteal veins are patent without thrombus, as well as visualized calf veins. Normal Doppler waveforms. Normal compressibility and/or augmentation response. Superficial veins: Bilateral saphenofemoral junctions are patent without thrombus. Soft tissues: Unremarkable. US/[place] [id number] IMPRESSION: No evidence of deep vein thrombosis.
--- NOTE | 2022-12-20 17:05 | CTR_ITS ---
PROCEDURE INFORMATION: Exam: CTA Chest With Contrast Exam date and time: 12/20/2022 5:13 PM Age: 87 years old Clinical indication: Shortness of breath; Additional info: Hypoxia TECHNIQUE: Imaging protocol: Computed tomographic angiography of the chest with contrast. Exam focused on the arteries. 3D rendering (Not supervised by radiologist): MIP and/or 3D reconstructed images were created by the technologist. Radiation optimization: All CT scans at this facility use at least one of these dose optimization techniques: automated exposure control; mA and/or kV adjustment per patient size (includes targeted exams where dose is matched to clinical indication); or iterative reconstruction. Contrast material: OMNIPAQUE 350; Contrast volume: 100 ml; Contrast route: INTRAVENOUS (IV); REPORTING DATA: Count of CT and Cardiac NM exams in prior 12 months: This patient has received 2 known CTs and 0 known cardiac nuclear medicine studies in the 12 months prior to the current study. COMPARISON: CT angio chest PE protcl [id number] 06/24/2022 9:48 AM RADIATION DOSE METRICS: Total DLP (mGy-cm): 356.27 FINDINGS: Pulmonary arteries: No hypodense filling defects are seen within the main pulmonary arteries or their major branches. No findings to indicate pulmonary embolus. Aorta: Calcification of the thoracic aorta and coronary arteries. This is chronic with prior exam. Lungs: Lung windows demonstrate hazy ground-glass opacity within the anterior lower lungs, zjkar-teoqvbu-uhtz-left. No consolidation. No mass. Small amount of atelectasis versus scarring within the medial left lung base. A few benign calcified granulomas, particularly lower right lung. Pleural spaces: Trace or minimal posterior effusion versus nonspecific posterior pleural thickening in the lower left chest. No significant pleural effusion. No pneumothorax. Heart: Mild cardiac enlargement. No pericardial effusion. Lymph nodes: Several calcified lymph nodes centrally, chronic with prior exam. Findings indicate benign healed granulomatous disease with a few pulmonary parenchymal calcified granulomas. No significant lymphadenopathy. Diaphragm: Moderate hiatal hernia. This is chronic with prior exam. Liver: A few small hypodense foci in the dome of the liver that unchanged from prior exam, likely hepatic cysts. A few hepatic and splenic granulomas. Gallbladder and bile ducts: Previous cholecystectomy. Bones/joints: Spondylotic change thoracic spine. Mild thoracic scoliosis. Soft tissues: Unremarkable. CT/CT angio chest PE protcl [id number] IMPRESSION: 1. No CT findings to indicate pulmonary embolus. 2. Hazy ground-glass opacity within the anterior lower lungs, svxke-ockprlr-qsed-left, on the lung windows. Consider mild infiltrate and less likely focal edema. No consolidation. 3. Other chronic nonacute findings as noted above.
[2022-12-20 17:07] LABS: Urine Appearance Hazy (CLEAR); Urine Color Yellow (Yellow); pH Urine 5 (5-7)
[2022-12-20 17:08] LABS: Add Urine Microscopic? YES; Bilirubin Urine 1+ (Negative); Blood Urine Neg (Negative); Glucose Urine UA Norm (Normal); Ketones Urine Negative (Negative); Leukocyte Esterase Urine Negative (Negative); Nitrate Urine Positive (Negative); Protein Urine Neg (Negative); Urobilinogen Urine 4 mg/dL (Negative)
[2022-12-20 17:11] LABS: Add Urine Culture? Yes; Bacteria Urine 4+ /hpf
[2022-12-20] MEDS: iohexol 350 mg/mL 500 mL Btl (per mL) IV (17:16)
[2022-12-20 17:17] LABS: Troponin 5 2HR 26.83 ng/L (0-10)
[2022-12-20 17:20] LABS: Troponin 5 2HR Delta -0.17 ABS# (0-10)
--- NOTE | 2022-12-20 17:54 | ECG_ITS ---
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 Measurements Intervals [place] Rate: 107 P: 60 [place]: 144 QRS: 21 QRSD: 117 T: -20 QT: 303 QTc: 405 Interpretive Statements SINUS TACHYCARDIA INCOMPLETE RIGHT BUNDLE BRANCH BLOCK [90+ ms QRS DURATION, TERMINAL R IN V1/V2, 40+ ms S IN I/aVL/V4/V5/V6] ST DEVIATION AND MODERATE T-WAVE ABNORMALITY, CONSIDER ANTEROLATERAL ISCHEMIA [-0.1+ mV T-WAVE IN V3-V6] Compared to ECG 12/20/2022 15:54:42 Sinus rhythm no longer present T-wave abnormality still present Possible ischemia still present Electronically Signed On 12-20-2022 23:10:33 CDT by Diego Christy M.D. [id number]
[2022-12-20 17:55] VITALS: BP 114/66; PULSE 108; RESP 14; O2SAT 96
[2022-12-20] MEDS: FUROsemide 10 mg/mL SDV 4mL 40 MG IVP ×2 (18:43→23:47)
[2022-12-20] MEDS: piperacillin-tazobactam 4.5 GM in sodium chloride 0.9% (plus) 50 ML IV (20:20)
[2022-12-20] MEDS: vancomycin 1,000 MG in sodium chloride 0.9% 250 ML 250 MG IV (20:21)
[2022-12-20 20:32] LABS: Troponin 5 6HR 24.07 ng/L (0-10)
[2022-12-20 20:34] LABS: Troponin 5 6HR Delta -2.93 ng/L (0-12)
--- NOTE | 2022-12-20 22:07 | ECG_ITS ---
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 Measurements Intervals [place] Rate: 99 P: 44 [place]: 144 QRS: 17 QRSD: 119 T: -24 QT: 339 QTc: 437 Interpretive Statements SINUS RHYTHM RIGHT BUNDLE BRANCH BLOCK [120+ ms QRS DURATION, UPRIGHT V1, 40+ ms S IN I/aVL/V4/V5/V6] Compared to ECG 12/20/2022 17:54:08 Right bundle-branch block now present Sinus tachycardia no longer present Incomplete right bundle-branch block no longer present T-wave abnormality no longer present Possible ischemia no longer present Electronically Signed On 12-20-2022 23:08:49 CDT by Diego Christy M.D. [id number]
[2022-12-20 22:31] VITALS: BP 114/66; O2SAT 94
--- NOTE | 2022-12-20 23:04 | PM.HP ---
Providers/Chief Complaint Admitting Physician: Melani Rodriguez MD Primary Care Provider: Elmo Staton DO Chief Complaint: weakness History of Present Illness Gricelda Andrade is a 87 year old female with history of COPD hypertension hyperlipidemia atherosclerotic heart disease was brought in by EMS for generalized weakness and unable to get out of bed. She was recently discharged from the hospital on 12/16 with a diagnosis of UTI and dehydration. As per the family she was doing well until yesterday, she was able to walk to the bathroom, eat 3 meals a day but today she was found to be more lethargic with loss of appetite. The daughter also mentioned that she had bilateral leg pain left more than the right and she noticed that the left thigh was bigger than the right thigh. On conversation with the patient she reports feeling weak, unable to move around and get out of bed and having generalized body pain. There is no history of fever cold cough chest pain shortness of breath abdominal pain nausea vomiting diarrhea or urinary complaints. On arrival in ER she was found to be hypoxic with saturation of less than 88% and was started on supplemental oxygen at 2 L nasal cannula. Review of Systems Narrative: As per HPI Medications/Allergies Home Medications Medication Instructions Recorded Confirmed Last Taken Type pantoprazole 40 mg tablet,delayed 40 mg PO QAM 07/07/19 12/20/22 12/20/22 History release cholecalciferol (vitamin D3) 25 25 mcg PO DAILY 08/24/19 12/20/22 Unknown History mcg (1,000 unit) capsule isosorbide mononitrate 30 mg 30 mg PO QPM 06/05/20 12/20/22 12/19/22 History tablet,extended release 24 hr calcium carbonate 975 mg-magnesium 1 tab PO DAILY 09/23/22 12/20/22 1 Week Ago History carbonate 232 mg oral tablet ~12/13/22 multivitamin 1 tab PO DAILY 09/23/22 12/20/22 Unknown History vit C 250 mg-vit E 90 mg-zinc 40 1 tab PO BID 09/23/22 12/20/22 Unknown History mg-copper 1 od-otsfbg-iskspd capsule (PreserVision AREDS-2) acetaminophen 300 mg-codeine 30 mg 1 tab PO BID 12/15/22 12/20/22 12/20/22 History tablet aspirin 81 mg tablet,delayed 81 mg PO QPM 12/15/22 12/20/22 12/19/22 History release furosemide 20 mg tablet 20 mg PO DAILY PRN Greater than 3 12/16/22 12/20/22 Unknown Rx pounds weight gain per day #30 tabs sodium chloride 1,000 mg soluble 1 g PO BID #4 tabs 12/16/22 12/20/22 12/19/22 Rx tablet finished 12/19/22 L.acidophil-L.casei-B.bifid-B.longum-FOS 1 cap PO QAM 12/20/22 12/20/22 12/20/22 History 2 billion cell-50 mg capsule (Probiotic Blend) alprazolam 1 mg tablet (Xanax) 1 mg PO BID 12/20/22 12/20/22 12/20/22 History carvedilol 12.5 mg tablet 12.5 mg PO BID 12/20/22 12/20/22 12/20/22 History levothyroxine 50 mcg tablet 50 mcg PO QAM 12/20/22 12/20/22 12/20/22 History losartan 100 mg tablet 100 mg PO QPM 12/20/22 12/20/22 12/19/22 History potassium chloride 8 mEq 8 meq PO DAILY PRN when taking 12/20/22 12/20/22 Unknown History capsule,extended release lasix Allergies Allergy/AdvReac Type Severity Reaction Status Date / Time No Known Allergies Allergy Verified 11/27/22 15:52 PFSH Acute PFSH: Medical History (Updated 12/20/22 @ 23:11 by Melani Rodriguez MD) Acute hyponatremia Acute UTI ASHD (arteriosclerotic heart disease) 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 CKD (chronic kidney disease) Hyperlipidemia Hypertension Ischemic cardiomyopathy SOB (shortness of breath) Spondylosis Transaminitis Surgical History H/O cataract extraction H/O: knee surgery Hx of cholecystectomy Family History Mother CAD (coronary artery disease) Daughter CAD (coronary artery disease) Family/Other CAD (coronary artery disease) Grandfather CAD (coronary artery disease) Son Cancer Denies family history of Diabetes Clotting disorder Dementia Chronic kidney disease (CKD) Suicide Anesthesia complication Bleeding disorder Lung disease Stroke Social History Smoking and tobacco/nicotine status: never used tobacco/nicotine Alcohol intake: never Substance/Drug Use: never Vitals/I&O/Wt Last Vital Signs Temp 98.3 F 12/20/22 14:09 Pulse 108 H 12/20/22 17:55 Resp 14 12/20/22 17:55 BP 114/66 12/20/22 22:31 Pulse Ox 94 12/20/22 22:31 O2 Del Method Nasal Cannula 12/20/22 17:55 O2 Flow Rate 2 12/20/22 17:55 Weight last 48 hrs Weight 69.853 kg Physical Exam Narrative: She is alert awake oriented x3 but lethargic in mild respiratory distress Chest bilateral diffuse crackles present no wheezing Cardiovascular normal heart sounds no murmurs Abdomen soft nontender nondistended normal bowel sounds Extremities no edema noted bilaterally lower extremities Data 12/20/22 14:15 12/20/22 14:15 CTA Chest: Radiologist's impression: FINDINGS: Pulmonary arteries: No hypodense filling defects are seen within the main pulmonary arteries or their major branches. No findings to indicate pulmonary embolus. Aorta: Calcification of the thoracic aorta and coronary arteries. This is chronic with prior exam. Lungs: Lung windows demonstrate hazy ground-glass opacity within the anterior lower lungs, ufuar-eilqrnm-zbul-left. No consolidation. No mass. Small amount of atelectasis versus scarring within the medial left lung base. A few benign calcified granulomas, particularly lower right lung. Pleural spaces: Trace or minimal posterior effusion versus nonspecific posterior pleural thickening in the lower left chest. No significant pleural effusion. No pneumothorax. Heart: Mild cardiac enlargement. No pericardial effusion. Lymph nodes: Several calcified lymph nodes centrally, chronic with prior exam. Findings indicate benign healed granulomatous disease with a few pulmonary parenchymal calcified granulomas. No significant lymphadenopathy. Diaphragm: Moderate hiatal hernia. This is chronic with prior exam. Liver: A few small hypodense foci in the dome of the liver that unchanged from prior exam, likely hepatic cysts. A few hepatic and splenic granulomas. Gallbladder and bile ducts: Previous cholecystectomy. Bones/joints: Spondylotic change thoracic spine. Mild thoracic scoliosis. Soft tissues: Unremarkable. CXR: Radiologist's impression: Atherosclerosis US Vascular: Radiologist's impression: No evidence of DVT bilateral lower extremities EKG 1: My Interpretation: Sinus rhythm Left axis deviation Right bundle branch block T wave inversions unchanged from EKG 1 week ago A&P Assessment and plan (1) Acute hypoxic respiratory failure: (2) Generalized weakness: Plan 87 year old female with history of COPD hypertension hyperlipidemia atherosclerotic heart disease was brought in by EMS for generalized weakness and unable to get out of bed and was found to have acute hypoxic respiratory failure with oxygen saturation of 87% on room air, CT chest showing some nonspecific infiltrates and BNP of 7000. Acute hypoxic respiratory failure likely secondary to pulmonary edema with a BNP of 7000. Continue supplemental oxygen at 2 L nasal cannula to keep saturation more than 90% Will give IV Lasix 40 mg every 12 hours Daily weight Monitor I's and O's Castañeda catheter placement 3 sets of troponins are negative and no new EKG changes noted. She had a stress test done 1 week ago which was normal, 2D echo normal with EF of 65 to 70%. Less likely pneumonia due to absence of fever cold cough or sick contact. She received 1 dose of vancomycin 1 g and Zosyn 4.5 g IV in ER. Will hold off on antibiotics for now. Will do IV fluids normal saline at lower rate of 60 ml per hour PT eval in a.m. Cardiac diet IV Pepcid 20 mg every 12 hours for stress ulcer prophylaxis Subcutaneous Lovenox 40 mg daily for DVT prophylaxis Resume home medications She is full code for now as per the discussion with family, daughter and youngest son at the bedside. Attestations Medical Necessity Statement*: She needs less than 2 days of hospitalization. She is here for management of generalized weakness/pneumonia/pulmonary edema, also needs PT evaluation for generalized weakness. Time Spent in Patient Care: 30 minutes Coding Level of Care Code Acute Code for Chg Fwd Diagnoses Acute hypoxic respiratory failure J96.01 Generalized weakness R53.1 Time Spent (min) 30
[2022-12-20 23:31] VITALS: O2SAT 94
[2022-12-20] MEDS: famotidine 20 mg/2 mL INJ IVP (23:45)
[2022-12-20] MEDS: sodium chloride 0.9% 1,000 ML 60 ML IV (23:45)
[2022-12-20] MEDS: enoxaparin 30 mg/0.3 mL Syringe SUBCUT (23:47)
[2022-12-21] VITALS (9 sets, daily range): BP systolic 92–135; BP diastolic 58–86; PULSE 69–101; RESP 16–18; TEMP 36.4–36.8; O2SAT 92–98; BMI 26.7
[2022-12-21 01:19] LABS: Adenovirus Not Detected (NOT DETECT); Chlamydia Pneumoniae Not Detected (NOT DETECT); Coronavirus 229E,HKU1,NL63,OC4 Not Detected (NOT DETECT); Human Metapneumovirus Not Detected (NOT DETECT); Human Rhinovirus/Enterovirus Not Detected (NOT DETECT); Influenza A Not Detected (NOT DETECT); Influenza A H1 Not Detected (NOT DETECT); Influenza A H1-2009 Not Detected (NOT DETECT); Influenza A H3 Not Detected (NOT DETECT); Influenza B Not Detected (NOT DETECT); Mycoplasma Pneumoniae Not Detected (NOT DETECT); Parainfluenza Virus Type 1 Not Detected (NOT DETECT); Parainfluenza Virus Type 2 Not Detected (NOT DETECT); Parainfluenza Virus Type 3 Not Detected (NOT DETECT); Parainfluenza Virus Type 4 Not Detected (NOT DETECT); Respiratory Syncytial Virus A Not Detected (NOT DETECT); Respiratory Syncytial Virus B Not Detected (NOT DETECT); SARS-COV-2 Not Detected (NOT DETECT)
[2022-12-21 01:55] LABS: ABG PCO2 58.4 mmHg (35-45); ABG PH Result 7.36 (7.35-7.45); Alveolar-Arterial Oxygen Gradi 1.8 mmHg (5-10); Arterial Blood Gas Hematocrit 35.4 % (37-47); Base Excess ABG 5.7 mmol/L (-2.0-2.0); Blood Gas Allen Test Pos; Blood Gas Operator Identificat JB; Blood Gas Sample Site Radial, right; Blood Gas Sample Type Arterial; Carboxyhemoglobin 0.8 %THgb (0.4-20.1); HCO3 ABG 32.6 mmol/L (22-26); HGB O2 Sat 90.6 % (95-100); Ionized Calcium Level - ABG 1.4 mmol/L (1.1-1.4); Oxygen Device NC; Oxygen Saturation ABG 91.3; PO2 ABG 63.8 mmHg (80.0-100.0); Potassium Level - ABG 3.5 mmol/L (3.5-5.0); Total Hemoglobin 11.6 g/dL (12-16)
[2022-12-21 04:35] LABS: Basophils % 0.3 %; Eosinophils # 0.1 10^3/uL (0.0-0.8); Eosinophils % 0.8 %; Hematocrit 31.9 % (36-47); Lymphocytes # 1.1 10^3/uL (0.8-4.8); Lymphocytes % 9.7 %; Mean Corpuscular HGB Conc 30.4 g/dL (30-55); Mean Corpuscular Hemoglobin 27.6 pg (27-33); Mean Corpuscular Volume 90.9 fl (85-98); Mean Platelet Volume 8.4 fL (7.4-10.4); Monocytes # 1.3 10^3/uL (0.2-0.9); Monocytes % 11.4 %; Neutrophils # 8.77 10^3/uL (1.8-7.7); Neutrophils % 77.1 %; Nucleated Red Blood Cells % 0 %; Platelet Count 415 10^3/cmm (157-399); Red Blood Count 3.51 10^6/uL (3.85-5.65); Red Cell Distribution Width 13.9 % (12.1-15.1); White Blood Count 11.36 10^3/uL (3.29-11.43)
[2022-12-21 05:09] LABS: Alanine Aminotransferase 62 U/L (0-33); Albumin Level 2.6 g/dL (3.5-5.2); Alkaline Phosphatase 133 U/L (35-105); Anion Gap 12.7 (5-19); Aspartate Amino Transferase 56 U/L (0-32); Blood Urea Nitrogen 17 mg/dL (8-23); Carbon Dioxide 33 mmol/L (22-29); Chloride 93 mmol/L (98-107); Globulin 3.6 g/dL (1.3-4.6); Glucose 99 mg/dL (65-115); Magnesium 1.8 mg/dL (1.7-2.3); Osmolality Calculated 282 mOsm/kg (285-295); Potassium 3.7 mmol/L (3.5-5.1); Sodium 135 mmol/L (136-145); Total Bilirubin 0.6 mg/dL (0.15-1.2); Total Protein 6.2 g/dL (6.6-8.7)
[2022-12-21 05:10] LABS: NT Pro B Type Natriuretic Pept 5074 pg/mL (0-450)
[2022-12-21] MEDS: levothyroxine 50 mcg Tablet PO (06:01)
[2022-12-21] MEDS: acetaminophen-codeine 300-30mg Tablet 1 TAB PO ×2 (08:42→18:34)
[2022-12-21] MEDS: sodium chloride 1 gm Tablet PO ×2 (08:42→18:35)
[2022-12-21] MEDS: multivitamin therapeutic Tablet 1 TAB PO (08:43)
[2022-12-21] MEDS: carvedilol 12.5 mg Tablet PO ×2 (08:43→18:38)
[2022-12-21] MEDS: ALPRAZolam 0.5 mg Tablet 1 MG PO (08:43)
[2022-12-21] MEDS: FUROsemide 10 mg/mL SDV 4mL 40 MG IVP ×2 (11:59→23:02)
[2022-12-21] MEDS: famotidine 20 mg/2 mL INJ IVP (11:59)
[2022-12-21] MEDS: meropenem 1,000 MG in sodium chloride 0.9% (plus) 50 ML 100 MG IV (14:58)
--- NOTE | 2022-12-21 15:50 | P.PN_ITS ---
Subjective Subjective: Patient's daughter is currently at bedside. States that patient was able to sit up and have some breakfast this morning. She participated with physical therapy. Urine culture reviewed from last admission showing ESBL E. coli. Antibiotic therapy started with meropenem Medications: Reviewed: Yes Vitals/I&O/Wt Last Vital Signs Temp 97.6 F 12/21/22 15:32 Pulse 79 12/21/22 15:32 Resp 16 12/21/22 15:32 BP 104/62 12/21/22 15:32 Pulse Ox 93 12/21/22 15:32 O2 Del Method Nasal Cannula 12/21/22 15:32 O2 Flow Rate 2 12/21/22 05:31 12/21/22 12/21/22 12/21/22 06:59 14:59 22:59 Intake Total 300 / 300 240 / 240 Output Total 1350 / 1350 600 / 600 Balance -1050 / -1050 -360 / -360 Weight last 48 hrs Weight 70.624 kg Weight 69.853 kg Physical Exam Narrative: General: No acute distress, AO x3 HEENT: PERRLA, pupils bilaterally equal and reactive, pallors not present Chest: wheezing and crackles on exam CVS: S1-S2 regular, no murmurs, no tachycardia, no gallops, no rubs Abdomen: Soft, nontender, no organomegaly, bowel sounds present Neuro: No focal deficits, no facial deformity, AO x3, power 5/5 in all limbs Urinary Catheter Management: Castañeda: Cath Placed During This Visit: yes Reason for Continuing Indwelling Catheter: Accurate Measurement of Urinary Output in Critically Ill Patients Urinary Catheter Date of Insertion: 12/20/22 Urinary Catheter Time of Insertion: 23:15 Data 12/21/22 03:48 12/21/22 03:48 A&P Assessment and plan (1) Acute hypoxic respiratory failure: (2) Generalized weakness: (3) UTI (urinary tract infection): (4) CHF (congestive heart failure): Plan 87 year old female with history of COPD hypertension hyperlipidemia atherosclero tic heart disease was brought in by EMS for generalized weakness and unable to get out of bed and was found to have acute hypoxic respiratory failure with oxygen saturation of 87% on room air, CT chest showing nonspecific infiltrates and BNP of 7000. # Acute hypoxic respiratory failure likely secondary to Acute on chronic heart failure with preserved EF As evidenced by infiltrates on Ct chest and elevtaed BNP, crackles on exam Continue lasix 40mg v q12h Stop IVF NS curretly running at 60 cc/hr Continue supplemental oxygen at 2 L nasal cannula to keep saturation more than 90% Daily weight Monitor I's and O's Trop series 27--> 26--> 24, recently normal stress test, no changes on EKG acu tely, low suspicion for PE CTa chest negative for PE RVP negative # UTI Recent urine cx from 12/14/22 with ESBL E.coli > 100K CFU, partially treated probably start meropenem renally dosed for treatment ; awaiting urine cx from current admission Patient uses incontinence pads at home but doesnt change often, counselled regarding the same. Appreciate Pt/ot eval Cardiac diet Po pepcid stress ulcer prophylaxis Subcutaneous Lovenox 40 mg daily for DVT prophylaxis She is full code Attestations Medical Necessity Statement*: changed to inpatient admission given need for IV antibiotic treatment with meropenem for ESBL E. coli, continued need for IV diuresis, monitor for improvement. Coding Level of Care Code Acute Code for Chg Fwd Diagnoses Acute hypoxic respiratory failure J96.01 Generalized weakness R53.1 UTI (urinary tract infection) N39.0 CHF (congestive heart failure) I50.9
[2022-12-21] MEDS: ALPRAZolam 0.5 mg Tablet PO (18:35)
[2022-12-21] MEDS: losartan 50 mg Tablet 100 MG PO (18:35)
[2022-12-21] MEDS: isosorbide mononitrate ER 30 mg Tablet PO (18:38)
[2022-12-21] MEDS: famotidine 20 mg Tablet PO (18:38)
[2022-12-21] MEDS: aspirin 81 mg EC Tablet PO (18:38)
[2022-12-21] MEDS: enoxaparin 30 mg/0.3 mL Syringe SUBCUT (22:00)
[2022-12-22] VITALS (8 sets, daily range): BP systolic 91–109; BP diastolic 53–66; PULSE 57–112; RESP 16–18; TEMP 36.6–37.2; O2SAT 93–97
[2022-12-22] MEDS: meropenem 1,000 MG in sodium chloride 0.9% (plus) 50 ML 100 MG IV ×2 (03:22→15:04)
[2022-12-22] MEDS: levothyroxine 50 mcg Tablet PO (05:53)
[2022-12-22 06:44] LABS: Basophils # 0.1 10^3/uL (0.0-0.1); Basophils % 0.5 %; Eosinophils # 0.1 10^3/uL (0.0-0.8); Eosinophils % 0.5 %; Hematocrit 30.9 % (36-47); Lymphocytes # 0.9 10^3/uL (0.8-4.8); Lymphocytes % 6.7 %; Mean Corpuscular HGB Conc 30.4 g/dL (30-55); Mean Corpuscular Hemoglobin 27.9 pg (27-33); Mean Corpuscular Volume 91.7 fl (85-98); Mean Platelet Volume 8.3 fL (7.4-10.4); Monocytes # 1.2 10^3/uL (0.2-0.9); Monocytes % 9.5 %; Neutrophils # 10.58 10^3/uL (1.8-7.7); Neutrophils % 82.1 %; Nucleated Red Blood Cells % 0 %; Platelet Count 428 10^3/cmm (157-399); Red Blood Count 3.37 10^6/uL (3.85-5.65); White Blood Count 12.89 10^3/uL (3.29-11.43)
[2022-12-22 07:10] LABS: Alanine Aminotransferase 53 U/L (0-33); Albumin Level 2.7 g/dL (3.5-5.2); Alkaline Phosphatase 118 U/L (35-105); Anion Gap 13.4 (5-19); Aspartate Amino Transferase 42 U/L (0-32); Blood Urea Nitrogen 15 mg/dL (8-23); Calcium 9.7 mg/dL (8.5-10.5); Carbon Dioxide 33 mmol/L (22-29); Chloride 92 mmol/L (98-107); Globulin 3.2 g/dL (1.3-4.6); Glucose 102 mg/dL (65-115); Osmolality Calculated 281 mOsm/kg (285-295); Potassium 3.4 mmol/L (3.5-5.1); Sodium 135 mmol/L (136-145); Total Bilirubin 0.3 mg/dL (0.15-1.2); Total Protein 5.9 g/dL (6.6-8.7)
[2022-12-22] MEDS: sodium chloride 1 gm Tablet PO ×2 (09:25→18:30)
[2022-12-22] MEDS: ALPRAZolam 0.5 mg Tablet PO ×2 (09:25→18:39)
[2022-12-22] MEDS: acetaminophen-codeine 300-30mg Tablet 1 TAB PO ×2 (09:26→18:38)
[2022-12-22] MEDS: carvedilol 12.5 mg Tablet PO ×2 (09:26→18:31)
[2022-12-22] MEDS: famotidine 20 mg Tablet PO ×2 (09:26→18:30)
[2022-12-22] MEDS: FUROsemide 10 mg/mL SDV 4mL 40 MG IVP (13:08)
--- NOTE | 2022-12-22 17:09 | P.PN_ITS ---
Subjective Subjective: Urine cx showing gram negative rods, patient symptomatically better, remains on 2lpm, participated with PT earlier today , able to tolerate meals Medications: Reviewed: Yes Vitals/I&O/Wt Last Vital Signs Temp 97.9 F 12/22/22 15:57 Pulse 57 L 12/22/22 15:57 Resp 16 12/22/22 15:57 BP 93/57 12/22/22 15:57 Pulse Ox 94 12/22/22 15:57 O2 Del Method Nasal Cannula 12/22/22 15:57 O2 Flow Rate 2 12/22/22 09:12 12/22/22 12/22/22 12/22/22 06:59 14:59 22:59 Intake Total 50 / 460 360 / 360 Output Total 600 / 2200 Balance -550 / -1740 360 / 360 Weight last 48 hrs Weight 71.078 kg Weight 70.624 kg Physical Exam Narrative: General: No acute distress, AO x3 HEENT: PERRLA, pupils bilaterally equal and reactive, pallors not present Chest: Normal vesicular breath sounds, no added sounds, equal good air entry bilaterally CVS: S1-S2 regular, no murmurs, no tachycardia, no gallops, no rubs Abdomen: Soft, nontender, no organomegaly, bowel sounds present Neuro: No focal deficits, no facial deformity, AO x3, power 5/5 in all limbs Urinary Catheter Management: Castañeda: Cath Placed During This Visit: yes Reason for Continuing Indwelling Catheter: Other Urinary Catheter Date of Insertion: 12/20/22 Urinary Catheter Time of Insertion: 23:15 Data 12/22/22 06:21 12/22/22 06:21 Micro: Microbiology 12/20/22 16:56 Urine Culture - Preliminary Urine,Clean Catch Gram Negative Rods 12/22/22 06:21 Blood Culture - Preliminary Blood SPECIMEN COLLECTED 12/22/22 06:17 Blood Culture - Preliminary Blood SPECIMEN COLLECTED Urine Culture Final 12/16/22-1149 Organism 1 Escherichia coli esbl [place] Count >100,000 CFU/ml DAY 2 [facility] RX --------- ------ * Amikacin <=16 S * Amoxicillin/Clavulanate 16/8 I * Ampicillin >16 R * Ampicillin/Sulbactam 16/8 I * Aztreonam >16 R * Cefepime >16 R * Ceftriaxone >32 R * Cefuroxime >16 R * Ciprofloxacin >2 R * Gentamicin >8 R * Imipenem <=1 S * Levofloxacin >4 R * Nitrofurantoin <=32 S * Tetracycline >8 R * Tobramycin >8 R * Trimethoprim/Sulfamethoxazole <=2/38 S * Piperacillin/Tazobactam <=16 S A&P Assessment and plan (1) Acute hypoxic respiratory failure: (2) Generalized weakness: (3) UTI (urinary tract infection): (4) CHF (congestive heart failure): Plan 87 year old female with history of COPD hypertension hyperlipidemia atherosclerotic heart disease was brought in by EMS for generalized weakness and unable to get out of bed and was found to have acute hypoxic respiratory failure with oxygen saturation of 87% on room air, CT chest showing nonspecific infiltrates and BNP of 7000. # Acute hypoxic respiratory failure likely secondary to Acute on chronic heart failure with preserved EF As evidenced by infiltrates on Ct chest and elevated BNP, crackles on exam Continue lasix 40mg v q12h ---> convert to 40mg po daily Continue supplemental oxygen at 2 L nasal cannula to keep saturation more than 90% Daily weight Monitor I's and O's Trop series 27--> 26--> 24, recently normal stress test, no changes on EKG acutely CTa chest negative for PE RVP negative # UTI Recent urine cx from 12/14/22 with ESBL E.coli > 100K CFU, partially treated probably continue meropenem renally dosed for treatment ; awaiting urine cx from current admission - GNR preliminary Patient uses incontinence pads at home but doesn't change often, counselled regarding the same. Appreciate Pt/ot eval Cardiac diet Po pepcid stress ulcer prophylaxis Subcutaneous Lovenox 40 mg daily for DVT prophylaxis She is full code Dispo: return home with family Attestations Medical Necessity Statement*: continue iv abx, await urine cx and susceptibility , convert iv to oral diuresis Coding Level of Care Code Acute Code for Chg Fwd Moderate MDM includes number and complexity of problems actively addressed during encounter, amount and/or complexity of data reviewed/ordered and described risk of complication, morbidity or mortality of management as documented Diagnoses Acute hypoxic respiratory failure J96.01 Generalized weakness R53.1 UTI (urinary tract infection) N39.0 CHF (congestive heart failure) I50.9
[2022-12-22] MEDS: potassium chloride ER 20 mEq Tablet 40 MEQ PO (18:30)
[2022-12-22] MEDS: isosorbide mononitrate ER 30 mg Tablet PO (18:30)
[2022-12-22] MEDS: aspirin 81 mg EC Tablet PO (18:30)
[2022-12-22] MEDS: enoxaparin 30 mg/0.3 mL Syringe SUBCUT (23:59)
[2022-12-23] VITALS (11 sets, daily range): BP systolic 90–144; BP diastolic 55–81; PULSE 77–106; RESP 15–20; TEMP 36.3–36.7; O2SAT 91–98
[2022-12-23] MEDS: meropenem 1,000 MG in sodium chloride 0.9% (plus) 50 ML 100 MG IV ×2 (02:33→15:41)
[2022-12-23] MEDS: sodium chloride 0.9% 1,000 ML 999 ML IV (02:34)
[2022-12-23 05:03] LABS: Basophils # 0.1 10^3/uL (0.0-0.1); Basophils % 0.5 %; Eosinophils # 0.2 10^3/uL (0.0-0.8); Eosinophils % 1.6 %; Hematocrit 31.2 % (36-47); Lymphocytes # 1.2 10^3/uL (0.8-4.8); Lymphocytes % 9.4 %; Mean Corpuscular HGB Conc 29.8 g/dL (30-55); Mean Corpuscular Hemoglobin 27.8 pg (27-33); Mean Corpuscular Volume 93.4 fl (85-98); Mean Platelet Volume 8.2 fL (7.4-10.4); Monocytes # 1.1 10^3/uL (0.2-0.9); Monocytes % 9.2 %; Neutrophils # 9.63 10^3/uL (1.8-7.7); Neutrophils % 78.7 %; Nucleated Red Blood Cells % 0 %; Platelet Count 425 10^3/cmm (157-399); Red Blood Count 3.34 10^6/uL (3.85-5.65); Red Cell Distribution Width 14.2 % (12.1-15.1); White Blood Count 12.22 10^3/uL (3.29-11.43)
[2022-12-23 05:24] LABS: Alanine Aminotransferase 52 U/L (0-33); Albumin Level 2.4 g/dL (3.5-5.2); Alkaline Phosphatase 117 U/L (35-105); Anion Gap 11.2 (5-19); Aspartate Amino Transferase 43 U/L (0-32); Blood Urea Nitrogen 21 mg/dL (8-23); Calcium 9.6 mg/dL (8.5-10.5); Carbon Dioxide 34 mmol/L (22-29); Chloride 95 mmol/L (98-107); Globulin 3.4 g/dL (1.3-4.6); Glucose 92 mg/dL (65-115); Osmolality Calculated 285 mOsm/kg (285-295); Potassium 4.2 mmol/L (3.5-5.1); Sodium 136 mmol/L (136-145); Total Bilirubin 0.2 mg/dL (0.15-1.2); Total Protein 5.8 g/dL (6.6-8.7)
[2022-12-23] MEDS: levothyroxine 50 mcg Tablet PO (05:37)
[2022-12-23 05:39] LABS: Hepatitis A Antibody IgM Non-Reactive (Nonreactive); Hepatitis B Core AB, Total Non-Reactive (Nonreactive); Hepatitis B Surface AB 3.5 (11.5-1000); Hepatitis B Surface Antigen Non-Reactive (Nonreactive); Hepatitis C Virus Antibody Non-Reactive (Nonreactive)
--- NOTE | 2022-12-23 08:42 | US_ITS ---
WS: [id number] Complete ABDOMINAL ULTRASOUND HISTORY: Pain COMPARISON: 07/05/2018 CT Liver: 15.8 cm in length. Normal size liver and echogenicity. No bile duct dilatation or mass. Portal Vein: Normal hepatopetal flow with monophasic waveform. Gallbladder: Prior cholecystectomy. CBD: 0.4 cm Pancreas: Obscured by bowel gas. Right kidney: 10.0 cm x 4.5 x 3.8 cm. Cortex: 0.8 cm. Mild cortical thinning. No hydronephrosis. Left kidney: 11.4 cm x 3.8 cm x 3.8 cm. Cortex: 1.0 cm. Normal size and echogenicity. No hydronephrosis or mass. Spleen: 9.9 cm in length. Normal size spleen. Numerous granulomata. Aorta and IVC: Unremarkable abdominal aorta and IVC. Impression: 1. Prior cholecystectomy. 2. Nonvisualization of the pancreas. 3. No hydronephrosis. Mild cortical thinning RIGHT kidney. 4. Normal size spleen with granulomata.
[2022-12-23] MEDS: famotidine 20 mg Tablet PO ×2 (08:48→16:53)
[2022-12-23] MEDS: acetaminophen-codeine 300-30mg Tablet 1 TAB PO ×2 (08:48→16:53)
[2022-12-23] MEDS: carvedilol 12.5 mg Tablet PO ×2 (08:48→16:53)
[2022-12-23] MEDS: albumin 25 G/100 ML VIAL IV (11:31)
[2022-12-23] MEDS: sodium chloride 0.9% 1,000 ML 50 ML IV (11:37)
[2022-12-23 12:11] LABS: Adenovirus Not Detected (NOT DETECT); Chlamydia Pneumoniae Not Detected (NOT DETECT); Coronavirus 229E,HKU1,NL63,OC4 Not Detected (NOT DETECT); Human Metapneumovirus Not Detected (NOT DETECT); Human Rhinovirus/Enterovirus Not Detected (NOT DETECT); Influenza A Not Detected (NOT DETECT); Influenza A H1 Not Detected (NOT DETECT); Influenza A H1-2009 Not Detected (NOT DETECT); Influenza A H3 Not Detected (NOT DETECT); Influenza B Not Detected (NOT DETECT); Mycoplasma Pneumoniae Not Detected (NOT DETECT); Parainfluenza Virus Type 1 Not Detected (NOT DETECT); Parainfluenza Virus Type 2 Not Detected (NOT DETECT); Parainfluenza Virus Type 3 Not Detected (NOT DETECT); Parainfluenza Virus Type 4 Not Detected (NOT DETECT); Respiratory Syncytial Virus A Not Detected (NOT DETECT); Respiratory Syncytial Virus B Not Detected (NOT DETECT); SARS-COV-2 Not Detected (NOT DETECT)
[2022-12-23 12:26] LABS: Anion Gap 10.4 (5-19); Blood Urea Nitrogen 22 mg/dL (8-23); Calcium 9.6 mg/dL (8.5-10.5); Carbon Dioxide 32 mmol/L (22-29); Chloride 97 mmol/L (98-107); Glucose 115 mg/dL (65-115); NT Pro B Type Natriuretic Pept 2954 pg/mL (0-450); Osmolality Calculated 284 mOsm/kg (285-295); Potassium 4.4 mmol/L (3.5-5.1); Sodium 135 mmol/L (136-145)
[2022-12-23] MEDS: isosorbide mononitrate ER 30 mg Tablet PO (16:53)
[2022-12-23] MEDS: aspirin 81 mg EC Tablet PO (16:54)
[2022-12-23] MEDS: ALPRAZolam 0.5 mg Tablet PO (16:55)
[2022-12-23] MEDS: enoxaparin 30 mg/0.3 mL Syringe SUBCUT (23:25)
[2022-12-24] VITALS (14 sets, daily range): BP systolic 102–147; BP diastolic 59–78; PULSE 72–109; RESP 16–18; TEMP 36.3–39.1; O2SAT 95–98
[2022-12-24] MEDS: meropenem 1,000 MG in sodium chloride 0.9% (plus) 50 ML 100 MG IV ×2 (02:34→13:59)
--- NOTE | 2022-12-24 02:42 | PC.NURSE ---
The patient is confused and having trouble finding words. The patient is noted to feel warm to touch and face is flushed. Axillary temp is 102.4. Physician notified. Orders put in by physician for PRN tylenol for fever
[2022-12-24] MEDS: acetaminophen 325 mg Tablet 650 MG PO (02:50)
--- NOTE | 2022-12-24 03:05 | PC.NURSE ---
Called Dr. Aden and informed of change in patient's condition in regards to strength and coordination. Patient able to follow directions, but had some deficits to the right side for strength and finger to nose on the right. When asked who she is, where, and birthday, she was able to answer appropriately. She was unable to tell the year and month. When checking sensation in lower extremities, there is decreased sensation in the right extremity. Last known normal was 2345 12/23/22. POC 149, Axillary temp 101.0, BP 131/71, HR 109, RR17, SPO2 95% on 2L.
[2022-12-24 03:14] LABS: Glucose Point of Care 149 mg/dL (70-110)
--- NOTE | 2022-12-24 03:31 | CTR_ITS ---
PROCEDURE INFORMATION: Exam: CT Head Without Contrast Exam date and time: 12/24/2022 4:21 AM Age: 87 years old Clinical indication: Altered mental status/memory loss; Additional info: Acute AMS TECHNIQUE: Imaging protocol: Computed tomography of the head without contrast. Radiation optimization: All CT scans at this facility use at least one of these dose optimization techniques: automated exposure control; mA and/or kV adjustment per patient size (includes targeted exams where dose is matched to clinical indication); or iterative reconstruction. REPORTING DATA: Count of CT and Cardiac NM exams in prior 12 months: This patient has received 3 known CTs and 0 known cardiac nuclear medicine studies in the 12 months prior to the current study. COMPARISON: CT head wo con* [id number] 04/09/2018 9:03 PM RADIATION DOSE METRICS: Total DLP (mGy-cm): 1143.08 FINDINGS: Brain: There is mild small vessel disease. There is no evidence of acute parenchymal hemorrhage, extra-axial collection, or acute infarction. There is no mass effect, midline shift, or downward herniation. Cerebral ventricles: No ventriculomegaly. Paranasal sinuses: Visualized sinuses are unremarkable. No fluid levels. Mastoid air cells: Visualized mastoid air cells are well aerated. Bones/joints: Unremarkable. No acute fracture. Soft tissues: Unremarkable. CT/CT head wo con* [id number] IMPRESSION: Mild small vessel disease. No evidence of acute intracranial process.
--- NOTE | 2022-12-24 03:32 | W.PM.EVENTAC ---
Event Note Event Note: Was notified that she is spiking fever 102.4, not long after that around 3 AM she was noted to be more confused, with mild slurring of speech, question of possible word finding difficulty, questionable unilateral weakness reported. LKN around 11 PM after which she was sleeping. On assessment she is noted to be mildly to moderately confused. She is accompanied by her daughter who provides history. Mild dysarthria is noted, although daughter states this is not uncommon when she just wakes up. Difficult to tell if she has a degree of aphasia as she is confused and at times continues to repeat words and has difficulty following directions making neurological examination difficult. She is generally weak. She is able to track horizontally. She appears to have intact visual lentz. No visual extinction. She does have minimal asterixis with mild bilateral UE drift. Each leg falls down before 5 seconds. Sensory examination is inconsistent. Reviewed day team documentation, reviewed CBC, CMP, respiratory viral panel, MRSA PCR, abdominal ultrasound, chest CTA. Discussed her condition and findings with her daughter, discussed fever and possible sources of infection including complicated UTI with MDRO, some lower possibility of pneumonia. Discussed it is not clear that she has focal neurologic deficits, current abnormalities appear likely more related to acute encephalopathy secondary to fever related to infection. She otherwise has no headache, neck pain or stiffness. Without other suggestion of SUPER[employer]ENDENT [employer] HATCHERY infection. Discussed that cannot entirely rule out CVA, discussed consideration of tPA with consensus that she would not be a candidate at current time. Discussed obtaining CT head to assess for any other abnormality as well as continuation of aspirin. Otherwise discussed continuation of meropenem for underlying infection, discussed for now broadening coverage. Meropenem renally dosed, creatinine has been improving, but does still progress, discussed with pharmacist. We will add vancomycin with MRSA PCR pending. Moderate MDM includes described risk of complication, morbidity or mortality of management as documented and High MDM includes number and complexity of problems actively addressed during encounter and amount and/or complexity of data reviewed/ordered [ resulted lab(s)/test(s), independent historian and other healthcare professional discussion] as documented
--- NOTE | 2022-12-24 04:04 | PC.PHAR ---
Pharmacokinetic dosing service Date: 12/24/22 Time: 040 Objective: Patient: Gricelda Andrade Floor: [id number] Age: 87 yo Serum creatinine: 1.3 mg/dL Height: 64.0 Inches Weight (kg): 72.076 Diagnosis: Relevant medical/social history: Cultures and sensitivities: Other labs: Assessment: IBW (kg): 54.70 Dosing wt(kg): 72.076 Estimated Creatinine clearance (ml/min): 26.3 CRCL method: Cockcroft and Gault using ibw(default). Drug selected: Vancomycin Loading dose (mg): 0 Vd (liters): 64.9 (factor used: 0.9 L/kg) Raymond (hr-1): 0.026 Half life (hrs): 26.66 Recommended dose: 1000 mg Interval: 24 hrs Infusion time (hrs): 1.5 Predicted peak (mcg/mL): 32.6 Predicted trough (mcg/mL): 18.16 Total body weight is being used for vancomycin dosing. Renal function is stable [ ] /unstable [ ] Recommendations: Give Vancomycin 1000 mg q 24 hrs with an expected Cpeak of 32.6 mcg/ml and an expected Ctrough of 18.16 mcg/ml Renal dosing of other antibiotics (review renal dosing of other medications and list guidelines here): Thank you for the consult, will continue to follow. Signature: [facility]
[2022-12-24] MEDS: vancomycin 1,000 MG in sodium chloride 0.9% 250 ML 250 MG IV (04:45)
[2022-12-24 05:30] LABS: Basophils % 0.3 %; Eosinophils # 0.1 10^3/uL (0.0-0.8); Eosinophils % 1.1 %; Hematocrit 29.3 % (36-47); Lymphocytes # 1.2 10^3/uL (0.8-4.8); Lymphocytes % 10.1 %; Mean Corpuscular Hemoglobin 27.5 pg (27-33); Mean Corpuscular Volume 91.6 fl (85-98); Mean Platelet Volume 8.3 fL (7.4-10.4); Monocytes # 1.2 10^3/uL (0.2-0.9); Monocytes % 10.4 %; Neutrophils # 9.24 10^3/uL (1.8-7.7); Neutrophils % 77.3 %; Nucleated Red Blood Cells % 0 %; Platelet Count 380 10^3/cmm (157-399); White Blood Count 11.94 10^3/uL (3.29-11.43)
[2022-12-24 05:56] LABS: Alanine Aminotransferase 43 U/L (0-33); Albumin Level 2.8 g/dL (3.5-5.2); Alkaline Phosphatase 99 U/L (35-105); Aspartate Amino Transferase 42 U/L (0-32); Blood Urea Nitrogen 19 mg/dL (8-23); Calcium 9.9 mg/dL (8.5-10.5); Carbon Dioxide 33 mmol/L (22-29); Chloride 96 mmol/L (98-107); Glucose 114 mg/dL (65-115); Magnesium 1.5 mg/dL (1.7-2.3); Osmolality Calculated 283 mOsm/kg (285-295); Sodium 135 mmol/L (136-145); Total Bilirubin 0.2 mg/dL (0.15-1.2); Total Protein 5.8 g/dL (6.6-8.7)
--- NOTE | 2022-12-24 05:59 | PC.NURSE ---
Patient requesting for breakfast: scrambled eggs with gravy on the side, toast, grape jelly, milk, sprite, and fruit. Dietary notified.
[2022-12-24] MEDS: levothyroxine 50 mcg Tablet PO (06:11)
[2022-12-24] MEDS: acetaminophen-codeine 300-30mg Tablet 1 TAB PO (08:28)
[2022-12-24] MEDS: famotidine 20 mg Tablet PO ×2 (08:29→17:07)
[2022-12-24] MEDS: carvedilol 12.5 mg Tablet PO ×2 (08:29→17:07)
[2022-12-24] MEDS: magnesium sulfate premix 2 GM/50 ML PIGGYBACK IV (08:30)
[2022-12-24 08:45] LABS: Ferritin 752 ng/mL (15-150); Iron 9 ug/dL (37-145); Percent Saturation 12.6 % (20-50); Total Iron Binding Capacity 71 mcg/dl; Unsaturated Iron Binding 62 ug/dL (112-347)
[2022-12-24] MEDS: sodium chloride 0.9% 1,000 ML 50 ML IV (14:00)
[2022-12-24 14:29] LABS: Methicillin-Resist S.aureu PCR NOT DETECTED (NOT DETECTED)
--- NOTE | 2022-12-24 16:18 | PM.PN ---
Subjective Subjective: Patient was seen this morning, she had a couple of febrile episodes throughout the night, she had episodes of confusion throughout the night, there was concerns for acute CVA but thought to be more global symptoms, head CT was within normal limits, daughter at bedside tells that she has not received any sedating medications, she has not slept throughout the night, this morning after breakfast, she has been sleeping, patient is alert to person, but is very drowsy, is alert to place, not to time, she can follow commands, but is quite drowsy, easily falls back asleep, I cannot notice any facial droop no slurring of words no focal weakness she has more general weakness, which is confirmed by family members that she has had this generalized weakness for a period of few weeks, vancomycin was also started last night Vitals/I&O/Wt Last Vital Signs Temp 97.4 F L 12/24/22 12:00 Pulse 76 12/24/22 13:53 Resp 16 12/24/22 12:00 BP 102/59 12/24/22 12:00 Pulse Ox 96 12/24/22 12:00 O2 Del Method Room Air 12/24/22 12:00 O2 Flow Rate 2 12/24/22 08:14 12/24/22 12/24/22 12/24/22 06:59 14:59 22:59 Intake Total 300 / 725.534 3552.833 / 1935.833 Output Total 200 / 750 1150 / 1150 Balance 100 / 184.167 785.833 / 785.833 Weight last 48 hrs Weight 71.668 kg Weight 72.076 kg Physical Exam Const: COMMON NORMALS: no acute distress Resp: COMMON NORMALS: normal respiratory effort, No retractions, No use of accessory muscles and clear to auscultation bilaterally AUSCULTATION: clear to auscultation bilaterally Cardio: COMMON NORMALS: regular rate, regular rhythm, S1 normal heart sound present and S2 normal heart sound present RATE: regular rate RHYTHM: regular rhythm HEART SOUNDS: S1 normal heart sound present and S2 normal heart sound present GI: COMMON NORMALS: Normal to inspection, nondistended, normoactive bowel sounds present and non-tender Extremity: COMMON NORMALS: no pedal edema Neuro: COMMON NORMALS: CN's II-XII intact bilaterally, moves all extremities and no focal motor deficits OTHER: Has more global weakness, no slurring of words, no facial droop, pupils equal round reactive to light Urinary Catheter Management: Castañeda: Cath Placed During This Visit: yes Reason for Continuing Indwelling Catheter: Accurate Measurement of Urinary Output in Critically Ill Patients Urinary Catheter Date of Insertion: 12/20/22 Urinary Catheter Time of Insertion: 23:15 Data 12/24/22 05:14 12/24/22 05:14 A&P Assessment and plan (1) Acute hypoxic respiratory failure: (2) Generalized weakness: (3) UTI (urinary tract infection): (4) CHF (congestive heart failure): Plan 87 year old female with history of COPD hypertension hyperlipidemia atherosclerotic heart disease was brought in by EMS for generalized weakness and unable to get out of bed and was found to have acute hypoxic respiratory failure with oxygen saturation of 87% on room air, CT chest showing nonspecific infiltrates and BNP of 7000. # Acute hypoxic respiratory failure likely secondary to Acute on chronic heart failure with preserved EF Resolved Holding Lasix due to elevated creatinine, poor oral intake Continue supplemental oxygen at 2 L nasal cannula to keep saturation more than 90% Daily weight Monitor I's and O's Trop series 27--> 26--> 24, recently normal stress test, no changes on EKG acutely CTa chest negative for PE RVP negative #Acute kidney injury -Secondary to diuresis, -Possibly contrast-induced nephropathy -Poor oral intake -Creatinine down to 1.1 -Gentle IV hydration at 50 cc an hour # UTI Recent urine cx from 12/14/22 with ESBL E.coli > 100K CFU, repeat urine culture showing ESBL E. coli continue meropenem renally dosed for treatment Patient uses incontinence pads at home but doesn't change often, counselled regarding the same. Had febrile episodes throughout the night, Will wait until blood cultures are -48 hours If remains afebrile We will place PICC line tomorrow discharged on Invanz 1 g every 24 hours for total of 7 days #Acute encephalopathy -Likely second to ESBL E. coli UTI -With febrile episodes -Will monitor -Neurochecks, aspiration precautions, and a stroke scale -hold maribell Appreciate Pt/ot eval Cardiac diet Po pepcid stress ulcer prophylaxis Subcutaneous Lovenox 40 mg daily for DVT prophylaxis She is full code Dispo: return home with family Plan for today, PT OT, up out of bed, neurochecks, aspiration precautions, continue meropenem, monitor for fevers, follow blood cultures, will consider PICC line if remains afebrile, and blood cultures are -48 hours, Attestations Medical Necessity Statement*: Patient requires hospitalization for UTI, ESBL, with acute encephalopathy Diagnoses Acute hypoxic respiratory failure J96.01 Generalized weakness R53.1 UTI (urinary tract infection) N39.0 CHF (congestive heart failure) I50.9
[2022-12-24] MEDS: aspirin 81 mg EC Tablet PO (17:07)
[2022-12-24] MEDS: isosorbide mononitrate ER 30 mg Tablet PO (17:07)
[2022-12-24 20:05] LABS: Hematocrit 29.7 % (36-47)
[2022-12-25] VITALS (8 sets, daily range): BP systolic 113–164; BP diastolic 70–94; PULSE 73–98; RESP 16–20; TEMP 36.4–36.8; O2SAT 87–98
[2022-12-25] MEDS: meropenem 1,000 MG in sodium chloride 0.9% (plus) 50 ML 100 MG IV ×2 (02:48→11:19)
[2022-12-25] MEDS: vancomycin 1,000 MG in sodium chloride 0.9% 250 ML 250 MG IV (04:15)
[2022-12-25 05:11] LABS: Basophils # 0.1 10^3/uL (0.0-0.1); Basophils % 0.6 %; Eosinophils # 0.2 10^3/uL (0.0-0.8); Eosinophils % 2.2 %; Hematocrit 28.5 % (36-47); Lymphocytes # 1.1 10^3/uL (0.8-4.8); Lymphocytes % 11.8 %; Mean Corpuscular HGB Conc 29.8 g/dL (30-55); Mean Corpuscular Hemoglobin 27.5 pg (27-33); Mean Corpuscular Volume 92.2 fl (85-98); Mean Platelet Volume 8.5 fL (7.4-10.4); Monocytes % 10.6 %; Neutrophils # 6.64 10^3/uL (1.8-7.7); Neutrophils % 73.9 %; Nucleated Red Blood Cells % 0 %; Platelet Count 351 10^3/cmm (157-399); Red Blood Count 3.09 10^6/uL (3.85-5.65); White Blood Count 8.98 10^3/uL (3.29-11.43)
[2022-12-25 05:33] LABS: Alanine Aminotransferase 50 U/L (0-33); Albumin Level 2.7 g/dL (3.5-5.2); Alkaline Phosphatase 93 U/L (35-105); Anion Gap 10.3 (5-19); Aspartate Amino Transferase 54 U/L (0-32); Blood Urea Nitrogen 16 mg/dL (8-23); Calcium 9.6 mg/dL (8.5-10.5); Carbon Dioxide 33 mmol/L (22-29); Chloride 101 mmol/L (98-107); Globulin 2.2 g/dL (1.3-4.6); Glucose 103 mg/dL (65-115); Magnesium 2.1 mg/dL (1.7-2.3); Osmolality Calculated 291 mOsm/kg (285-295); Phosphorus 2.8 mg/dL (2.5-4.5); Potassium 4.3 mmol/L (3.5-5.1); Sodium 140 mmol/L (136-145); Total Bilirubin 0.2 mg/dL (0.15-1.2); Total Protein 4.9 g/dL (6.6-8.7)
[2022-12-25] MEDS: levothyroxine 50 mcg Tablet PO (06:27)
[2022-12-25] MEDS: famotidine 20 mg Tablet PO (08:40)
[2022-12-25] MEDS: carvedilol 12.5 mg Tablet PO (08:40)
--- NOTE | 2022-12-25 10:51 | PC.CHAP ---
Pastoral Care Encounter/Spiritual Assessment Type of Contact [] Declined programming director visit [] Patient/Family/Request visit [] Outpatient visit [] Follow-up visit [] Physician referral [] Code/Alert [] Routine visit [x] Staff referral [] Actively dying [] Patient sleeping [x] Family support [] [] Out of room [] Palliative care [] [] Receiving care in room [] Pre-surgical visit [] Trauma [] Long length of stay [] ICU visit [] Other: Relational/Emotional Strength [x] Patient feels connected with others/family/visitors/staff [] Distress [] Loneliness/isolation [] Abandonment Spirituality of Patient [] Person of Araceli [] Attends [employer] of their Araceli [] Believes in Prayer [] Reads Bible or Hindu materials [] There are Spiritual issues to be addressed 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 Interventions [x] Prayer [] Active listening [] Non-anxious presence [] Spiritual/emotional support [] Crisis/trauma care [] Spiritual counseling [] Bereavement support [] Provided bereavement packet [] Provided Bible/devotional materials [] Provided toy/stuffed animal, coloring book to patient or family member [] Provided Communion [] Anointing/[place] [] Salvation [] Completed spiritual assessment [] Other: Impact on Illness or Injury [] Angry [] Fearful [] Anxious [] Often cries [] Exhaustion [] Unable to work [] Unable to attend advent [] Unable to walk/stand [] Unable to read [] Unable to drive [] Unable to eat/drink [] Unable to sleep [] Unable to be with family [] Patient intubated [] Other: Summary Time spent with patient 15 min
--- NOTE | 2022-12-25 11:33 | XR_ITS ---
WS: [id number] Exam: XR chest 1V portable [id number] Date/Time of Exam: 12/25/2022 12:32 PM Reason For Exam: Post PICC insertion Comparison 12/20/2022. Right-sided PICC line has been placed and appears to end at the cavoatrial junction. The lungs are cl ear and fully expanded. Unremarkable cardiomediastinal silhouette for technique. Hiatal hernia. No pl eural effusions. No pneumothorax. Regional bony structures appear normal. IMPRESSION: 1. No acute cardiopulmonary finding. 2. Right-sided PICC line appearing to end in the region of the cavoatrial junction.
--- NOTE | 2022-12-25 11:36 | P.DS_ITS ---
Discharge Providers Date of Admission: 12/21/22 15:53 Date of Discharge: December 25, 2022 Attending Provider at Admission: Melani Rodriguez MD Attending Provider at Discharge: Shawn Lobato MD Primary Care Provider: Elmo Staton DO Diagnoses at Discharge Discharge Diagnosis (1) Acute hypoxic respiratory failure: Status: Acute (2) Generalized weakness: Status: Acute (3) UTI (urinary tract infection): Status: Acute (4) CHF (congestive heart failure): Status: Acute Reason for Visit Reason for Visit: weakness Hospital Course Hospital Course Gricelda Andrade is a 87 year old female with history of COPD hypertension hyperlipidemia atherosclerotic heart disease was brought in by EMS for generalized weakness and unable to get out of bed.? She was recently discharged from the hospital on 12/16 with a diagnosis of UTI and dehydration.? As per the family she was doing well until yesterday,? she was able to walk to the bathroom,? eat 3 meals a day but today she was found to be more lethargic with loss of appetite.? The daughter also mentioned that she had bilateral leg pain left more than the right and she noticed that the left thigh was bigger than the right thigh.? On conversation with the patient she reports feeling weak, unable to move around and get out of bed and having generalized body pain. There is no history of fever cold cough chest pain shortness of breath abdominal pain nausea vomiting diarrhea or urinary complaints. On arrival in ER she was found to be hypoxic with saturation of less than 88% and was started on supplemental oxygen at 2 L nasal cannula. This is a 87-year-old female, who presents to [facility] for generalized weakness, with diagnosis for UTI, urine culture showing ESBL E. coli UTI, managed with meropenem, overall clinically improved, blood cultures negative, discharged on total of 7 days of Invanz, PICC line placed, follow-up with primary care provider 1 week She also had a CHF exacerbation during hospitalization, fluid overload requiring diuresis, which resolved She did develop DEYSI secondary to dehydration, diuresis, requiring IV fluids, creatinine discharge 0.7 She did have evidence of iron deficiency, received IV iron, discharged on oral iron Patient had episode of bloody bowel movement during her hospitalization, no recurrent episodes of bloody bowel movement, hemoglobin 8.5, aspirin has been held, she did receive Lovenox for DVT prophylaxis which was also discontinued. No recurrent bloody black stools, no hemodynamic compromise discharged on Protonix, iron replacement as above, with repeat hemoglobin through primary care provider. If she were to have any recurrent bloody black stools to come back to emergency room. For her generalized weakness, likely secondary to ESBL E. coli UTI, discharged home to the care of her family Physical Exam Const: COMMON NORMALS: no acute distress and patient oriented x3 Resp: COMMON NORMALS: normal respiratory effort, No retractions, No use of accessory muscles and clear to auscultation bilaterally AUSCULTATION: clear to auscultation bilaterally Cardio: COMMON NORMALS: regular rate, regular rhythm, S1 normal heart sound present and S2 normal heart sound present RATE: regular rate RHYTHM: regular rhythm HEART SOUNDS: S1 normal heart sound present and S2 normal heart sound present GI: COMMON NORMALS: Normal to inspection, nondistended, normoactive bowel sounds present and non-tender Extremity: COMMON NORMALS: no pedal edema Neuro: COMMON NORMALS: patient oriented x3 Psych: COMMON NORMALS: mental status grossly normal Urinary Catheter Management: Castañeda: Cath Placed During This Visit: yes, but has since been removed by the nurse Reason for Continuing Indwelling Catheter: Decision to DC Catheter Urinary Catheter Date of Insertion: 12/20/22 Urinary Catheter Time of Insertion: 23:15 Date Urinary Catheter Removed: 12/25/22 Time Urinary Catheter Discontinued: 10:35 Discharge Data Studies Completed and Pending Completed Studies During Hospitalization Category Date Time Status CT angio chest PE protcl [id number] Stat Cat Scan 12/20/22 17:[address] head wo con* [id number] Urgent Cat Scan 12/24/22 03:31 Completed XR chest 1V portable [id number] Stat Exams 12/20/22 14:11 Completed US abdomen complete* [id number] Routine Ultrasound 12/23/22 08:42 Completed US venous duplex lower extremity bilat [CV venous Ultrasound 12/20/22 17:04 [place] [id number]] Stat Pending at discharge Category Date Time Status CXRP [XR chest 1V portable [id number]] Routine Exams 12/25/22 11:33 Ordered Blood Culture AM LABS Lab 12/22/22 06:21 Results Complete Blood Count w/Auto AM LABS Lab 12/26/22 04:00 Ordered Comprehensive Metabolic Panel AM LABS Lab 12/26/22 04:00 Ordered Magnesium AM LABS Lab 12/26/22 04:00 Ordered Phosphorus AM LABS Lab 12/26/22 04:00 Ordered Sputum Culture and Gram Stain Stat Lab 12/23/22 08:43 Uncollected Radiology Impressions Venous Duplex 12/20/22 17:04 IMPRESSION: No evidence of deep vein thrombosis. Chest CTA 12/20/22 17:05 IMPRESSION: 1. No CT findings to indicate pulmonary embolus. 2. Hazy ground-glass opacity within the anterior lower lungs, [id number], on the lung windows. Consider mild infiltrate and less likely focal edema. No consolidation. 3. Other chronic nonacute findings as noted above. Head CT 12/24/22 03:31 IMPRESSION: Mild small vessel disease. No evidence of acute intracranial process. Laboratory Results WBC 8.98 10^3/uL (3.29-11.43) 12/25/22 04:31 RBC 3.09 10^6/uL (3.85-5.65) L 12/25/22 04:31 Hgb 8.50 g/dL (11.27-16.99) L 12/25/22 04:31 Hct 28.5 % (36-47) L 12/25/22 04:31 MCV 92.2 fl (85-98) 12/25/22 04:31 MCH 27.5 pg (27-33) 12/25/22 04:31 MCHC 29.8 g/dL (30-55) L 12/25/22 04:31 RDW 14.0 % (12.1-15.1) 12/25/22 04:31 Plt Count 351 10^3/cmm (157-399) 12/25/22 04:31 MPV 8.5 fL (7.4-10.4) 12/25/22 04:31 Neut % (Auto) 73.9 % 12/25/22 04:31 Lymph % (Auto) 11.8 % 12/25/22 04:31 [place] % (Auto) 10.6 % 12/25/22 04:31 Eos % (Auto) 2.2 % 12/25/22 04:31 Baso % (Auto) 0.6 % 12/25/22 04:31 Neut # (Auto) 6.64 10^3/uL (1.8-7.7) 12/25/22 04:31 Lymph # (Auto) 1.1 10^3/uL (0.8-4.8) 12/25/22 04:31 [place] # (Auto) 1.0 10^3/uL (0.2-0.9) H 12/25/22 04:31 Eos # (Auto) 0.2 10^3/uL (0.0-0.8) 12/25/22 04:31 Baso # (Auto) 0.1 10^3/uL (0.0-0.1) 12/25/22 04:31 Nucleated RBC % (auto) 0 % 12/25/22 04:31 Nucleated RBCs # 0.0 /100WBC 12/25/22 04:31 D-Dimer 2.34 ug/mLFEU (0-0.59) H 12/20/22 14:15 Specimen Type Arterial 12/21/22 01:41 Sample Site Radial, right 12/21/22 01:41 ABG pH 7.36 (7.35-7.45) 12/21/22 01:41 ABG pCO2 58.4 mmHg (35-45) H 12/21/22 01:41 ABG pO2 63.8 mmHg (80.0-100.0) L 12/21/22 01:41 ABG HCO3 32.6 mmol/L (22-26) H 12/21/22 01:41 ABG O2 Saturation 91.3 12/21/22 01:41 ABG Base Excess 5.7 mmol/L (-2.0-2.0) H 12/21/22 01:41 Jovan Test Pos 12/21/22 01:41 A-a O2 Gradient 1.8 mmHg (5-10) L 12/21/22 01:41 Hematocrit 35.4 % (37-47) L 12/21/22 01:41 Hgb O2 Saturation 90.6 % (95-100) L 12/21/22 01:41 Carboxyhemoglobin 0.8 %THgb (0.4-20.1) 12/21/22 01:41 Methemoglobin 0.0 % (0.4-1.5) L 12/21/22 01:41 Total Hemoglobin 11.6 g/dL (12-16) L 12/21/22 01:41 Sodium 135.0 mmol/L (131-143) 12/21/22 01:41 Potassium 3.5 mmol/L (3.5-5.0) 12/21/22 01:41 Glucose 105.0 mg/dL (70-115) 12/21/22 01:41 Ionized Calcium 1.4 mmol/L (1.1-1.4) 12/21/22 01:41 O2 Delivery Device Nc 12/21/22 01:41 O2 Liters/Min 2.0 % 12/21/22 01:41 Delivery Motorcycle Driver ID Jd 12/21/22 01:41 Sodium 140 mmol/L (136-145) 12/25/22 04:31 Potassium 4.3 mmol/L (3.5-5.1) 12/25/22 04:31 Chloride 101 mmol/L (98-107) 12/25/22 04:31 Carbon Dioxide 33 mmol/L (22-29) H 12/25/22 04:31 Anion Gap 10.3 (5-19) 12/25/22 04:31 BUN 16 mg/dL (8-23) 12/25/22 04:31 Creatinine 0.7 mg/dL (0.5-0.9) 12/25/22 04:31 GFR Calculation Not Reportable 12/25/22 04:31 Glucose 103 mg/dL (65-115) 12/25/22 04:31 POC Glucose 149 mg/dL (70-110) H 12/24/22 03:11 Calculated Osmolality 291 mOsm/kg (285-295) 12/25/22 04:31 Calcium 9.6 mg/dL (8.5-10.5) 12/25/22 04:31 Phosphorus 2.8 mg/dL (2.5-4.5) 12/25/22 04:31 Magnesium 2.1 mg/dL (1.7-2.3) 12/25/22 04:31 Iron 9 ug/dL (37-145) L 12/24/22 05:14 TIBC 71 mcg/dl 12/24/22 05:14 % Saturation 12.6 % (20-50) L 12/24/22 05:14 Unsat Iron Binding 62 ug/dL (112-347) L 12/24/22 05:14 Ferritin 752 ng/mL (15-150) H 12/24/22 05:14 Total Bilirubin 0.2 mg/dL (0.15-1.2) 12/25/22 04:31 AST 54 U/L (0-32) H 12/25/22 04:31 ALT 50 U/L (0-33) H 12/25/22 04:31 Alkaline Phosphatase 93 U/L (35-105) 12/25/22 04:31 Troponin T Baseline 27 ng/L (0-10) H 12/20/22 14:15 Troponin T 120 Minute 26.83 ng/L (0-10) H 12/20/22 16:34 Delta Troponin T -0.17 ABS# (0-10) L 12/20/22 16:34 Troponin T Hi Sens 6Hr 24.07 ng/L (0-10) H 12/20/22 20:08 Troponin T Hi Sens 6Hr Delta -2.93 ng/L (0-12) L 12/20/22 20:08 NT-Pro-B Natriuret Pep 2954 pg/mL (0-450) H 12/23/22 11:46 Total Protein 4.9 g/dL (6.6-8.7) L 12/25/22 04:31 Albumin 2.7 g/dL (3.5-5.2) L 12/25/22 04:31 Globulin 2.2 g/dL (1.3-4.6) 12/25/22 04:31 Urine Color Yellow (Yellow) 12/20/22 16:56 Urine Appearance Hazy (CLEAR) A 12/20/22 16:56 Urine pH 5 (5-7) 12/20/22 16:56 Ur Specific [place] 1.020 (1.005-1.030) 12/20/22 16:56 Urine Protein Neg (Negative) 12/20/22 16:56 Urine Glucose (UA) Norm (Normal) 12/20/22 16:56 Urine Ketones Negative (Negative) 12/20/22 16:56 Urine Blood Neg (Negative) 12/20/22 16:56 Urine Nitrate Positive (Negative) H 12/20/22 16:56 Urine Bilirubin 1+ (Negative) H 12/20/22 16:56 Urine Urobilinogen 4 mg/dL (Negative) H 12/20/22 16:56 Ur Leukocyte Esterase Negative (Negative) 12/20/22 16:56 Urine RBC None /hpf (0-2) 12/20/22 16:56 Urine WBC None /hpf (0-5) 12/20/22 16:56 Ur Squamous Epith Cells 5-10 /hpf (0-5) H 12/20/22 16:56 Amorphous Sediment Not Reportable 12/20/22 16:56 Urine Bacteria 4+ /hpf (NONE) H 12/20/22 16:56 Nasal Influ A H1 2009 PCR Not detected (NOT DETECT) 12/23/22 10:23 Adenovirus (PCR) Not detected (NOT DETECT) 12/23/22 10:23 C. pneumoniae DNA (PCR) Not detected (NOT DETECT) 12/23/22 10: Coronavirus 229E (PCR) Not detected (NOT DETECT) 12/23/22 10:23 Hepatitis A IgM Ab Non-reactive (Nonreactive) 12/23/22 04:26 Hep Bs Antigen Non-reactive (Nonreactive) 12/23/22 04:26 Hep Bs Antibody 3.5 (11.5-1000) L 12/23/22 04:26 Hep B Core Total Ab Non-reactive (Nonreactive) 12/23/22 04:26 Hepatitis C Antibody Non-reactive (Nonreactive) 12/23/22 04:26 Human Metapneumovir PCR Not detected (NOT DETECT) 12/23/22 10:23 Influenza A (H1) PCR Not detected (NOT DETECT) 12/23/22 10:23 Influenza A (H3) PCR Not detected (NOT DETECT) 12/23/22 10:23 Influenza Type A (PCR) Not detected (NOT DETECT) 12/23/22 10:23 Influenza Type B (PCR) Not detected (NOT DETECT) 12/23/22 10:23 M. pneumoniae (PCR) Not detected (NOT DETECT) 12/23/22 10:23 Parainfluenza 1 (PCR) Not detected (NOT DETECT) 12/23/22 10:23 Parainfluenza 2 (PCR) Not detected (NOT DETECT) 12/23/22 10:23 Parainfluenza 3 (PCR) Not detected (NOT DETECT) 12/23/22 10:23 Parainfluenza 4 (PCR) Not detected (NOT DETECT) 12/23/22 10:23 RSV Type A (PCR) Not detected (NOT DETECT) 12/23/22 10:23 RSV Type B (PCR) Not detected (NOT DETECT) 12/23/22 10:23 Entero/Rhino (PCR) Not detected (NOT DETECT) 12/23/22 10:23 SARS-CoV-2 (PCR) Not detected (NOT DETECT) 12/23/22 10:23 MRSA (PCR) Not detected (NOT DETECTED) 12/23/22 10:06 Vitals Last Vital Signs Temp 97.5 F L 12/25/22 08:00 Pulse 98 12/25/22 08:00 Resp 20 H 12/25/22 08:00 BP 127/91 12/25/22 08:00 Pulse Ox 93 12/25/22 08:00 O2 Del Method Room Air 12/25/22 08:00 O2 Flow Rate 1 12/25/22 07:29 Discharge Plan Discharge Patient Disposition: Home Condition: Stable Prescriptions: New polyethylene glycol 3350 [Miralax] 17 gram powder in packet 17 g PO DAILY PRN (Reason: constipation) 30 Days Qty: 30 0RF ertapenem 1 gram recon soln 1 g IV DAILY 7 Days Qty: 7 0RF ferrous sulfate 325 mg (65 mg iron) tablet,delayed release (DR/EC) 325 mg PO DAILY 30 Days Qty: 30 0RF sucralfate [Carafate] 1 gram tablet 1 g PO BID 28 Days Qty: 56 0RF Continued cholecalciferol (vitamin D3) 25 mcg (1,000 unit) capsule 25 mcg PO DAILY Patient Comments: unknown dose isosorbide mononitrate 30 mg tablet extended release 24 hr 30 mg PO QPM calcium and magnesium carbonat 975-232 mg tablet 1 tab PO DAILY multivitamin Tablet 1 tab PO DAILY PreserVision AREDS-2 250-90-40-1 mg capsule 1 tab PO BID carvedilol 12.5 mg tablet 12.5 mg PO BID Xanax 1 mg Tablet 1 mg PO BID Rx Instructions: may take one extra tab daily if needed levothyroxine 50 mcg Tablet 50 mcg PO QAM Probiotic Blend 2 billion cell-50 mg Capsule 1 cap PO QAM Rx Instructions: give with meal/snack potassium chloride 8 mEq capsule, extended release 8 meq PO DAILY PRN (Reason: when taking lasix) acetaminophen-codeine 300-30 mg tablet 1 tab PO BID furosemide 20 mg tablet 20 mg PO DAILY PRN (Reason: Greater than 3 pounds weight gain per day) Qty: 30 0RF Changed pantoprazole 40 mg tablet,delayed release (DR/EC) 40 mg PO Q12H 30 Days Qty: 60 0RF Held aspirin 81 mg Tablet,Delayed Release (Dr/Ec) 81 mg PO QPM Hold Instructions: Resume on 02/03/23. hold unitl you see primary care Discontinued losartan 100 mg tablet 100 mg PO QPM sodium chloride 1,000 mg Tablet,Soluble 1 g PO BID Qty: 4 0RF Rx Instructions: finished 12/19/22 Discharge Orders: Discharge Order (Routine); Ordered 12/25/22 Ordered By: Shawn Lobato Referrals: Elmo Staton DO [Primary Care Provider] - Reji Schmitt MD [Physician] - 1 month (hemmocult positive stool) Discharge Diet: Cardiac Discharge Activity: Resume usual activity Patient Instructions: Opioid Safety Activity Restrictions/Additional Instructions: - For ESBL E. coli UTI, please follow-up with primary care provider 1 week, recheck urinalysis -Ertapenem 1 g IV every 24 hours for 7 remaining days through PICC line -l PICC line removal after 1 week -Please have your primary care provider recheck your CBC and your CMP specifically your kidney function and your hemoglobin in 1 week -Your kidney function on discharge 0.7 -Your hemoglobin on discharge is 8.5 -If you develop recurrent bloody or black stools please go to the emergency room -I have held your aspirin for now, please see primary care provider of repeating hemoglobin, if improved can resume aspirin -For your iron deficiency please take iron as prescribed -If you have further weakness, fatigue, malaise, please come back to the emergency room Discharge Attestations Time Spent in Discharge Care*: greater than 30 min Quality Metrics Clinical Quality Measures [ No reported AMI, CVA or VTE this stay] Coding Level of Care Code Acute Code for Chg Fwd Diagnoses Acute hypoxic respiratory failure J96.01 Generalized weakness R53.1 UTI (urinary tract infection) N39.0 CHF (congestive heart failure) I50.9
--- NOTE | 2022-12-25 13:06 | PC.NURSE ---
Single lumen PICC placed to right basilic. Pt referred for PICC placement for IV antibiotics. Risks and benefits discussed with patient and family and informed consent obtained from patient. Right arm assessed with right basilic vein measuring 4.7 mm, straight, and apparent best choice for placement. Using sterile technique and MST, right basilic vein accessed x 1 stick. Mid-arm circumference measured 10 cm from right AC 28 cm. Trimmed cath 40 cm with tip in SVC, cavoatrial junction, in good position for use per radiologist. Line secured with stat-lock. Insertion site covered with Biopatch and TSM. Report given to bedside Nimisha sepulveda.
[2022-12-25] MEDS: iron sucrose 200 MG in sodium chloride 0.9% (100 ml) 100 ML 220 MG IV (13:23)
== END 2022-12-25 15:38 | disposition home health service (06) | DRG 689 ==
LOC: ER 21:29 → MEDSURG 22:50
PROVIDERS: Family Medicine; Student in an Organized Health Care Education/Training Program; Admitting Provider Internal Medicine; Emergency Provider Emergency Medicine; PCP Electrodiagnostic Medicine; Visit Provider Family Medicine
DX: N39.0 Urinary tract infection, site not specified (principal); G93.41 Metabolic encephalopathy; I50.33 Acute on chronic diastolic (congestive) heart failure; J96.01 Acute respiratory failure with hypoxia; Z16.12 Extended spectrum beta lactamase (ESBL) resistance; I13.0 Hypertensive heart and chronic kidney disease with heart failure and stage 1 through stage 4 chronic kidney disease, or unspecified chronic kidney disease; N17.9 Acute kidney failure, unspecified; B96.20 Unspecified Escherichia coli [E. coli] as the cause of diseases classified elsewhere; N18.9 Chronic kidney disease, unspecified; E78.5 Hyperlipidemia, unspecified; I25.10 Atherosclerotic heart disease of native coronary artery without angina pectoris; E86.0 Dehydration; E61.1 Iron deficiency; I25.5 Ischemic cardiomyopathy; Z20.822 Contact with and (suspected) exposure to COVID-19; R74.01 Elevation of levels of liver transaminase levels
CPT/HCPCS: 36415; 36416; 36573; 51702; 70450; 71045; 71275; 76700; 80048; 80051; 80053; 81001; 82274; 82330; 82728; 82805; 82962; 83540; 83550; 83735; 83880; 84100; 84484; 85014; 85018; 85025; 85378; 86705; 86706; 86709; 86803; 87040; 87077; 87086; 87186; 87340; 87486; 87581; 87633; 87641; 93005; 93970; 94664; 94760; 96365; 96367; 96372; 96375; 97110; 97116; 97161; 97530; 99285; G0378; J1650; J1756; J1940; J2185; J2543; J3370; J3475; J3490; J7030; J7050; P9047; Q3014; Q9967

== ENCOUNTER 2023-01-01 08:00 | Outpatient (CLI) | payer MEDICARE, OTHER, SELFPAY ==
[2023-01-01 18:34] LABS: Basophils # 0.1 10^3/uL (0.0-0.1); Basophils % 1.1 %; Eosinophils # 0.2 10^3/uL (0.0-0.8); Eosinophils % 4.2 %; Hematocrit 34.4 % (36-47); Lymphocytes % 19.2 %; Mean Corpuscular HGB Conc 29.4 g/dL (30-55); Mean Corpuscular Hemoglobin 28.1 pg (27-33); Mean Corpuscular Volume 95.6 fl (85-98); Mean Platelet Volume 8.9 fL (7.4-10.4); Monocytes # 0.5 10^3/uL (0.2-0.9); Monocytes % 10.2 %; Neutrophils # 3.36 10^3/uL (1.8-7.7); Neutrophils % 64.3 %; Nucleated Red Blood Cells % 0 %; Platelet Count 371 10^3/cmm (157-399); Red Cell Distribution Width 14.7 % (12.1-15.1); White Blood Count 5.22 10^3/uL (3.29-11.43)
[2023-01-01 18:46] LABS: Alanine Aminotransferase 46 U/L (0-33); Albumin Level 3.3 g/dL (3.5-5.2); Alkaline Phosphatase 125 U/L (35-105); Anion Gap 8.8 (5-19); Aspartate Amino Transferase 27 U/L (0-32); Blood Urea Nitrogen 13 mg/dL (8-23); Calcium 10.4 mg/dL (8.5-10.5); Chloride 93 mmol/L (98-107); Globulin 2.8 g/dL (1.3-4.6); Glucose 110 mg/dL (65-115); Osmolality Calculated 287 mOsm/kg (285-295); Potassium 4.8 mmol/L (3.5-5.1); Sodium 138 mmol/L (136-145); Total Bilirubin 0.2 mg/dL (0.15-1.2); Total Protein 6.1 g/dL (6.6-8.7)
[2023-01-01 19:10] LABS: Carbon Dioxide 41 mmol/L (22-29)
== END 2023-01-01 08:01 | disposition home or self-care (01) ==
LOC: LAB 05-02 08:05
PROVIDERS: PCP Electrodiagnostic Medicine; Visit Provider Electrodiagnostic Medicine
DX: Z01.89 Encounter for other specified special examinations (principal)
CPT/HCPCS: 80053; 85025

== ENCOUNTER 2023-02-17 10:58 | Observation (INO) | payer MEDICARE, OTHER, SELFPAY ==
[2023-02-17] VITALS (67 sets, daily range): BP systolic 85–155; BP diastolic 55–87; PULSE 68–172; RESP 11–29; TEMP 36.5–37.1; O2SAT 85–96; BMI 25.0
--- NOTE | 2023-02-17 11:26 | XR_ITS ---
WS: [id number] Portable AP upright chest, 02/17/2023 Clinical Data: weakness Comparison: Portable chest, 12/25/2022 Findings: There is patchy opacity in the left lower lobe which could indicate minimal pneumonia, atel ectasis and/or effusion. No nodules or masses seen. The heart is normal. The pulmonary vascularity is not increased. No pneumothorax is seen. The aortic arch shows calcification. There is a dextroscolio sis. Impression: 1. Patchy left lower lobe opacity which could represent pneumonia, atelectasis and/or effusion. 2. Atherosclerosis.
--- NOTE | 2023-02-17 11:27 | ECG_ITS ---
[facility] Test Date: 2023-02-17 Pat Name: Gricelda Andrade Department: Room: Gender: Female Pet Sitting: : 1935 Requested By: Kecia Lomeli Order Number: [id number] Birtt MD: Nini Aquino M.D. Measurements Intervals [place] Rate: 88 P: 47 OH: 154 QRS: 7 QRSD: 119 T: -17 QT: 335 QTc: 405 Interpretive Statements SINUS RHYTHM RIGHT BUNDLE BRANCH BLOCK [120+ ms QRS DURATION, UPRIGHT V1, 40+ ms S IN I/aVL/V4/V5/V6] Compared to ECG 12/20/2022 22:07:44 No significant changes Electronically Signed On 02-17-2023 17:41:02 INSPECT[employer]BUTION by Nini Aquino M.D. [id number]
--- NOTE | 2023-02-17 11:32 | ED_ITS ---
HPI - Female Genitourinary 2 General: Chief complaint: ER Hold Stated complaint: Weakness/Fever Time Seen by Provider: 02/17/23 11:16 Source: patient Mode of arrival: ambulatory Limitations: no limitations History of Present Illness: 87-year-old female states in December she had an ESBL UTI had to be admitted placed on IV antibiotics and had to have a PICC line and IV antibiotics outpatient. States been doing well but started feeling weak had another UTI earlier this month and originally started amoxicillin states her PCP got culture switch to Bactrim she is been on 7 days of Bactrim states she is getting weaker feeling worse feeling like she did previously with her UTI she had low-grade fevers denies any vomiting or diarrhea. Associated symptoms: Deny abdominal pain, headache(s) or nausea Review of Systems 2 Const: Reports: fever(s), fatigue and malaise; Denies: chills, body aches or change in appetite Eyes: Denies: blurry vision or eye discomfort ENMT: Denies: throat pain or dental pain Card: Denies: chest pain Resp: Denies: dyspnea GI: Denies: abdominal pain, nausea, vomiting or diarrhea : Denies: dysuria Musc: Denies: neck pain or back pain Skin/Breast: Denies: rash Neuro: Denies: headache(s) Psych: Denies: depression Rob/Lymph: Denies: easy bruising All/Imm: Denies: urticaria PFSH ED 2 PFSH: Medical History (Updated 02/17/23 @ 13:33 by Candi Norwood MD) History of ESBL E. 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 Hypertension Hyperlipidemia CKD (chronic kidney disease) ASHD (arteriosclerotic heart disease) Spondylosis Ischemic cardiomyopathy Surgical History Hx of cholecystectomy H/O cataract extraction H/O: knee surgery Family History Mother CAD (coronary artery disease) Daughter CAD (coronary artery disease) Family/Other CAD (coronary artery disease) Grandfather CAD (coronary artery disease) Son Cancer Denies family history of Diabetes Clotting disorder Dementia Chronic kidney disease (CKD) Suicide Anesthesia complication Bleeding disorder Lung disease Stroke Social History Smoking and tobacco/nicotine status: never used tobacco/nicotine Alcohol intake: never Substance/Drug Use: never Physical Exam 2 Const: COMMON NORMALS: patient oriented x3 HENMT: COMMON NORMALS: normocephalic and atraumatic HEAD & SCALP: n ormocephalic and atraumatic Neck/C-Spine: COMMON NORMALS: full ROM and supple Chest: COMMONS NORMALS: normal inspection of the chest Resp: COMMON NORMALS: normal respiratory effort Cardio: COMMON NORMALS: regular rate, regular rhythm and No murmurs present (Cardio) RATE: regular rate RHYTHM: regular rhythm GI: INSPECTION: Yes normal to inspection Extremity: COMMON NORMALS: normal to inspection and full ROM Neuro: COMMON NORMALS: patient oriented x3, moves all extremities and no focal motor deficits Psych: COMMON NORMALS: mental status grossly normal Skin: COMMON NORMALS: no rashes or lesions noted and no wounds GENERAL SKIN EXAM: no rashes or lesions noted Course 2 Vital Signs: Vital signs: Vital Signs Temperature 97.7 F 02/17/23 11:13 Pulse Rate 85 02/17/23 11:55 Respiratory Rate 20 H 02/17/23 11:55 Blood Pressure 85/55 02/17/23 11:55 Pulse Oximetry 92 02/17/23 11:55 Oxygen Delivery Me thod Room Air 02/17/23 11:13 MDM - Female Medical Decision Making Patient presents for generalized weakness she does not have a UTI here but she is hyponatremic this is likely causing her weakness x-ray shows a possible pneumonia we will get blood cultures start on antibiotics I spoke to the hospitalist will admit at this time for her hyponatremia. Medical Records I reviewed the patient's medical records. Lab Data I reviewed the patient's lab results. 02/17/23 11:30 02/17/23 12:20 Laboratory Results WBC 3.01 10^3/uL (3.29-11.43) L 02/17/23 11:30 RBC 4.11 10^6/uL (3.85-5.65) 02/17/23 11:30 Hgb 12.10 g/dL (11.27-16.99) 02/17/23 11:30 Hct 37.0 % (36-47) 02/17/23 11:30 MCV 90.0 fl (85-98) 02/17/23 11:30 MCH 29.4 pg (27-33) 02/17/23 11:30 MCHC 32.7 g/dL (30-55) 02/17/23 11:30 RDW 16.5 % (12.1-15.1) H 02/17/23 11:30 Plt Count 203 10^3/cmm (157-399) 02/17/23 11:30 MPV 8.7 fL (7.4-10.4) 02/17/23 11:30 Neut % (Auto) 63.6 % 02/17/23 11:30 Lymph % (Auto) 15.9 % 02/17/23 11:30 [place] % (Auto) 13.6 % 02/17/23 11:30 Eos % (Auto) 6.3 % 02/17/23 11:30 Baso % (Auto) 0.3 % 02/17/23 11:30 Neut # (Auto) 1.91 10^3/uL (1.8-7.7) 02/17/23 11:30 Lymph # (Auto) 0.5 10^3/uL (0.8-4.8) L 02/17/23 11:30 [place] # (Auto) 0.4 10^3/uL (0.2-0.9) 02/17/23 11:30 Eos # (Auto) 0.2 10^3/uL (0.0-0.8) 02/17/23 11:30 Baso # (Auto) 0.0 10^3/uL (0.0-0.1) 02/17/23 11:30 Nucleated RBC % (auto) 0 % 02/17/23 11:30 Nucleated RBCs # 0.0 /100WBC 02/17/23 11:30 Sodium 125 mmol/L (136-145) L 02/17/23 12:20 Potassium 4.6 mmol/L (3.5-5.1) 02/17/23 12:20 Chloride 93 mmol/L (98-107) L 02/17/23 12:20 Carbon Dioxide 26 mmol/L (22-29) 02/17/23 12:20 Anion Gap 10.6 (5-19) 02/17/23 12:20 BUN 17 mg/dL (8-23) 02/17/23 12:20 Creatinine 1.5 mg/dL (0.5-0.9) H 02/17/23 12:20 GFR Calculation Not Reportable 02/17/23 12:20 Glucose 108 mg/dL (65-115) 02/17/23 12:20 Calculated Osmolality 262 mOsm/kg (285-295) L 02/17/23 12:20 Lactic Acid 1.7 mmol/L (0.5-2.2) 02/17/23 11:30 Calcium 9.3 mg/dL (8.5-10.5) 02/17/23 12:20 Total Bilirubin 0.2 mg/dL (0.15-1.2) 02/17/23 12:20 AST 14 U/L (0-32) 02/17/23 12:20 ALT 11 U/L (0-33) 02/17/23 12:20 Alkaline Phosphatase 85 U/L (35-105) 02/17/23 12:20 Total Protein 6.2 g/dL (6.6-8.7) L 02/17/23 12:20 Albumin 3.5 g/dL (3.5-5.2) 02/17/23 12:20 Globulin 2.7 g/dL (1.3-4.6) 02/17/23 12:20 Urine Color Yellow (Yellow) 02/17/23 12:28 Urine Appearance Clear (CLEAR) 02/17/23 12:28 Urine pH 6 (5-7) 02/17/23 12:28 Ur Specific [place] 1.015 (1.005-1.030) 02/17/23 12:28 Urine Protein Neg (Negative) 02/17/23 12:28 Urine Glucose (UA) Norm (Normal) 02/17/23 12:28 Urine Ketones Negative (Negative) 02/17/23 12:28 Urine Blood Neg (Negative) 02/17/23 12:28 Urine Nitrate Negative (Negative) 02/17/23 12:28 Urine Bilirubin Neg (Negative) 02/17/23 12:28 Urine Urobilinogen Norm mg/dL (Negative) 02/17/23 12:28 Ur Leukocyte Esterase Negative (Negative) 02/17/23 12:28 SARS-CoV-2 Ag (Rapid) negative (Negative) 02/17/23 12:00 All radiology interpretation(s) finalized by discharge EKG Data EKG 1: I personally reviewed and interpreted this EKG as follows: EKG Data: 02/17/23 EKG interpretation time: 11:35 Interpretation: nsr hr [address] or t wave abnormalities qrs 119 qtc 380 Discharge Plan Discharge Patient Disposition: Admitted As Inpatient Admit Provider: Candi Norwood Clinical Impression: Hyponatremia, Weakness Condition: Stable Coding Level of Care Code ED Principal Process Engineer for Chg [place]
[2023-02-17 11:44] LABS: Basophils % 0.3 %; Eosinophils # 0.2 10^3/uL (0.0-0.8); Eosinophils % 6.3 %; Lymphocytes # 0.5 10^3/uL (0.8-4.8); Lymphocytes % 15.9 %; Mean Corpuscular HGB Conc 32.7 g/dL (30-55); Mean Corpuscular Hemoglobin 29.4 pg (27-33); Mean Platelet Volume 8.7 fL (7.4-10.4); Monocytes # 0.4 10^3/uL (0.2-0.9); Monocytes % 13.6 %; Neutrophils # 1.91 10^3/uL (1.8-7.7); Neutrophils % 63.6 %; Nucleated Red Blood Cells % 0 %; Platelet Count 203 10^3/cmm (157-399); Red Blood Count 4.11 10^6/uL (3.85-5.65); Red Cell Distribution Width 16.5 % (12.1-15.1); White Blood Count 3.01 10^3/uL (3.29-11.43)
[2023-02-17] MEDS: sodium chloride 0.9% 1,000 ML 999 ML IV (11:54)
[2023-02-17 12:05] LABS: Lactic Sepsis W/Reflex 1.7 mmol/L (0.5-2.2)
[2023-02-17 12:35] LABS: SARS Covid-2 Antigen negative (Negative)
[2023-02-17 12:42] LABS: Add Urine Microscopic? NO; Charge for UA Resulting for Rev
[2023-02-17 13:04] LABS: Alanine Aminotransferase 11 U/L (0-33); Albumin Level 3.5 g/dL (3.5-5.2); Alkaline Phosphatase 85 U/L (35-105); Anion Gap 10.6 (5-19); Aspartate Amino Transferase 14 U/L (0-32); Blood Urea Nitrogen 17 mg/dL (8-23); Calcium 9.3 mg/dL (8.5-10.5); Carbon Dioxide 26 mmol/L (22-29); Chloride 93 mmol/L (98-107); Globulin 2.7 g/dL (1.3-4.6); Glucose 108 mg/dL (65-115); Osmolality Calculated 262 mOsm/kg (285-295); Potassium 4.6 mmol/L (3.5-5.1); Sodium 125 mmol/L (136-145); Total Bilirubin 0.2 mg/dL (0.15-1.2); Total Protein 6.2 g/dL (6.6-8.7)
[2023-02-17 13:18] LABS: Bilirubin Urine Neg (Negative); Blood Urine Neg (Negative); Glucose Urine UA Norm (Normal); Ketones Urine Negative (Negative); Leukocyte Esterase Urine Negative (Negative); Nitrate Urine Negative (Negative); Protein Urine Neg (Negative); Specific Gravity, Urine 1.015 (1.005-1.030); Urine Appearance Clear (CLEAR); Urine Color Yellow (Yellow); Urobilinogen Urine Norm (Negative); pH Urine 6 (5-7)
--- NOTE | 2023-02-17 14:01 | P.HP_ITS ---
Providers/Chief Complaint 2 Admitting Physician: Candi Norwood MD Primary Care Provider: Elmo Staton DO Chief Complaint: Weakness/Fever History of Present Illness Gricelda Andrade is a 87 year old female who presents for evaluation of multiple medical concerns over the last few days. She had been hospitalized a couple of times in December of this year with what ultimately was identified as ESBL E. coli. She was quite sick during that timeframe. She went home with IV meropenem via PICC line and had been followed by home health until that was complete. About a week and a half ago she was seen by Dr. Staton and found to have a recurrent urinary tract infection. She was initially treated with amoxicillin but was later switched to Bactrim. She is on day 7 of 10 of Bactrim therapy today. Over the last 4 to 5 days she has been getting progressively weaker and shakier. Her symptoms have been similar to what she had prior to hospitalizations in December. She has not had much of an appetite and has required assistance getting around in the house. She has been sleeping more. Her daughter lives with her. She had a temperature of 99.[address] Staton is out of town right now and given concern for recurrent serious urinary tract infection they came to the emergency room for evaluation. She has been having to get up every 30 minutes to 1-1/2 hours to urinate but that is not necessarily a completely new thing. She had previously been tried on some oxybutynin but stopped it when she got sick in December. She has had some nausea but no vomiting. She does have a hiatal hernia and takes Protonix. She had diarrhea previously but that stopped a couple of weeks ago. Stools are now formed. No abdominal pain. She has had some chilling alternating with sweating at times. Her blood pressures have been ranging from 120-150 systolic over 70s to 80s at home. No significant tachycardia noted on logs. No changes in vision. She has had intermittent brief headaches that resolved with Tylenol. Some runny nose but no sore throat. No significant cough or increase in trouble breathing. Workup in the emergency room today identified low sodium at 125 along with elevated creatinine at 1.5. Last values were 138 and 0.8 respectively on January 01. She has Lasix as a home medication but it is only as needed and has not taken any recently. No lower extremity edema. No increased orthopnea or PND described. No complaints of chest pain. Chest x-ray performed in the emergency room showed hazy opacity in the left lower lobe reported as potentially representing pneumonia, atelectasis and/or effusion in addition to findings consistent with atherosclerosis. Blood cultures were collected and orders were written for empiric antibiotic coverage to cover for possibility of pneumonia. Request was made for observation admission. Review of Systems 2 General: Reports: Other (ROS as per HPI or as otherwise noted here) Medications/Allergies Home Medications Medication Instructions Recorded Confirmed Last Taken Type cholecalciferol (vitamin D3) 25 25 mcg PO DAILY 08/24/19 02/17/23 02/17/23 History mcg (1,000 unit) capsule isosorbide mononitrate 30 mg 30 mg PO QPM 06/05/20 02/17/23 02/16/23 History tablet,extended release 24 hr calcium carbonate 975 mg-magnesium 1 tab PO DAILY 09/23/22 02/17/23 02/17/23 History carbonate 232 mg oral tablet multivitamin 1 tab PO DAILY 09/23/22 02/17/23 02/17/23 History vit C 250 mg-vit E 90 mg-zinc 40 1 tab PO BID 09/23/22 02/17/23 02/17/23 History mg-copper 1 pk-[id number]-ynnedx capsule (PreserVision AREDS-2) acetaminophen 300 mg-codeine 30 mg 1 tab PO BID 12/15/22 02/17/23 02/17/23 History tablet furosemide 20 mg tablet 20 mg PO DAILY PRN Greater than 3 12/16/22 02/17/23 Unknown Rx pounds weight gain per day #30 tabs L.acidophil-L.casei-B.bifid-B.longum-FOS 1 cap PO QAM 12/20/22 02/17/23 02/17/23 History 2 billion cell-50 mg capsule (Probiotic Blend) alprazolam 1 mg tablet (Xanax) 1 mg PO BID 12/20/22 02/17/23 02/17/23 History carvedilol 12.5 mg tablet 12.5 mg PO BID 12/20/22 02/17/23 02/17/23 History levothyroxine 50 mcg tablet 50 mcg PO QAM 12/20/22 02/17/23 02/17/23 History potassium chloride 8 mEq 8 meq PO DAILY PRN when taking 12/20/22 02/17/23 02/17/23 History capsule,extended release lasix pantoprazole 40 mg tablet,delayed 40 mg PO Q12H 30 days #60 tabs 12/25/22 02/17/23 02/17/23 Rx release aspirin 81 mg tablet,delayed 81 mg PO QPM #90 tabs 02/17/23 02/17/23 02/16/23 Rx release Allergies Allergy/AdvReac Type Severity Reaction Status Date / Time No Known Allergies Allergy Verified 02/17/23 11:13 PFSH Acute 2 PFSH: Medical History (Updated 02/17/23 @ 16:16 by Candi Norwood MD) Hiatal hernia Hypothyroidism 3 para 3 CKD (chronic kidney disease) History of diagnostic tests 07/08/2022 Carotid US 12/20/2022 Venous duplex of legs 12/20/2022 CTA chest 12/23/2022 US abdomen 12/24/[address] History of Holter monitoring -07/2022 baseline rhythm sinus, average 93 bpm, occasional ectopic beats History of echocardiogram 12/12/2022 EF 60%, normal systolic and diastolic function, no wall motion abnormalities, normal left and right ventricular size History of cardiovascular stress test 12/16/2022 no EKG changes, EF 77%, no wall motion abnormalities, low probability for coronary ischemia History of PFTs 12/17/2022 severe airflow obstruction, no bronchodilator response, moderate reduction in gas transfer, air trapping and hyperinflation noted. Consistent with severe obstructive ventilatory defect. History of ESBL E. coli infection Hypertension Hyperlipidemia ASHD (arteriosclerotic heart disease) Spondylosis Ischemic cardiomyopathy Surgical History Hx of cholecystectomy H/O cataract extraction H/O: knee surgery Family History Mother CAD (coronary artery disease) Daughter CAD (coronary artery disease) Family/Other CAD (coronary artery disease) Grandfather CAD (coronary artery disease) Son Cancer Denies family history of Diabetes Clotting disorder Dementia Chronic kidney disease (CKD) Suicide Anesthesia complication Bleeding disorder Lung disease Stroke Social History Smoking and tobacco/nicotine status: never used tobacco/nicotine Alcohol intake: never Substance/Drug Use: never Vitals/I&O/Wt Last Vital Signs Temp 97.7 F 02/17/23 11:13 Pulse 79 02/17/23 13:55 Resp 17 02/17/23 13:55 BP 125/73 02/17/23 13:55 Pulse Ox 93 02/17/23 13:55 O2 Del Method Room Air 02/17/23 12:15 Weight last 48 hrs Weight 66.224 kg Physical Exam 2 Narrative: Patient is awake and alert. Able to provide history though supplemented by daughter. Extraocular movements intact, oropharynx with slightly dry mucous membranes. Neck is supple. Lungs are clear to auscultation without any rales rhonchi or wheezes noted bilaterally. Cardiovascular exam reveals a regular rhythm. No murmurs or rubs noted. Abdomen is soft and nontender. No flank tenderness. No pitting edema. Moves all extremities with grossly equal strength. Speech is clear, face is symmetric. Does not recall some details accurately but realizes this once told. Data 02/17/23 11:30 02/17/23 12:20 Other Labs: Laboratory Results WBC 3.01 10^3/uL (3.29-11.43) L 02/17/23 11:30 RBC 4.11 10^6/uL (3.85-5.65) 02/17/23 11:30 Hgb 12.10 g/dL (11.27-16.99) 02/17/23 11:30 Hct 37.0 % (36-47) 02/17/23 11:30 MCV 90.0 fl (85-98) 02/17/23 11:30 MCH 29.4 pg (27-33) 02/17/23 11:30 MCHC 32.7 g/dL (30-55) 02/17/23 11:30 RDW 16.5 % (12.1-15.1) H 02/17/23 11:30 Plt Count 203 10^3/cmm (157-399) 02/17/23 11:30 MPV 8.7 fL (7.4-10.4) 02/17/23 11:30 Neut % (Auto) 63.6 % 02/17/23 11:30 Lymph % (Auto) 15.9 % 02/17/23 11:30 [place] % (Auto) 13.6 % 02/17/23 11:30 Eos % (Auto) 6.3 % 02/17/23 11:30 Baso % (Auto) 0.3 % 02/17/23 11:30 Neut # (Auto) 1.91 10^3/uL (1.8-7.7) 02/17/23 11:30 Lymph # (Auto) 0.5 10^3/uL (0.8-4.8) L 02/17/23 11:30 [place] # (Auto) 0.4 10^3/uL (0.2-0.9) 02/17/23 11:30 Eos # (Auto) 0.2 10^3/uL (0.0-0.8) 02/17/23 11:30 Baso # (Auto) 0.0 10^3/uL (0.0-0.1) 02/17/23 11:30 Nucleated RBC % (auto) 0 % 02/17/23 11:30 Nucleated RBCs # 0.0 /100WBC 02/17/23 11:30 Sodium 125 mmol/L (136-145) L 02/17/23 12:20 Potassium 4.6 mmol/L (3.5-5.1) 02/17/23 12:20 Chloride 93 mmol/L (98-107) L 02/17/23 12:20 Carbon Dioxide 26 mmol/L (22-29) 02/17/23 12:20 Anion Gap 10.6 (5-19) 02/17/23 12:20 BUN 17 mg/dL (8-23) 02/17/23 12:20 Creatinine 1.5 mg/dL (0.5-0.9) H 02/17/23 12:20 GFR Calculation Not Reportable 02/17/23 12:20 Glucose 108 mg/dL (65-115) 02/17/23 12:20 Calculated Osmolality 262 mOsm/kg (285-295) L 02/17/23 12:20 Lactic Acid 1.7 mmol/L (0.5-2.2) 02/17/23 11:30 Calcium 9.3 mg/dL (8.5-10.5) 02/17/23 12:20 Total Bilirubin 0.2 mg/dL (0.15-1.2) 02/17/23 12: AST 14 U/L (0-32) 02/17/23 12:20 ALT 11 U/L (0-33) 02/17/23 12:20 Alkaline Phosphatase 85 U/L (35-105) 02/17/23 12:20 Total Protein 6.2 g/dL (6.6-8.7) L 02/17/23 12:20 Albumin 3.5 g/dL (3.5-5.2) 02/17/23 12:20 Globulin 2.7 g/dL (1.3-4.6) 02/17/23 12:20 Urine Color Yellow (Yellow) 02/17/23 12:28 Urine Appearance Clear (CLEAR) 02/17/23 12:28 Urine pH 6 (5-7) 02/17/23 12:28 Ur Specific [place] 1.015 (1.005-1.030) 02/17/23 12:28 Urine Protein Neg (Negative) 02/17/23 12:28 Urine Glucose (UA) Norm (Normal) 02/17/23 12:28 Urine Ketones Negative (Negative) 02/17/23 12:28 Urine Blood Neg (Negative) 02/17/23 12:28 Urine Nitrate Negative (Negative) 02/17/23 12:28 Urine Bilirubin Neg (Negative) 02/17/23 12:28 Urine Urobilinogen Norm mg/dL (Negative) 02/17/23 12:28 Ur Leukocyte Esterase Negative (Negative) 02/17/23 12:28 SARS-CoV-2 Ag (Rapid) negative (Negative) 02/17/23 12:00 CXR Findings: There is patchy opacity in the left lower lobe which could indicate minimal pneumonia, atelectasis and/or effusion. No nodules or masses seen. The heart is normal. The pulmonary vascularity is not increased. No pneumothorax is seen. The aortic arch shows calcification. There is a dextroscoliosis. Impression: 1. Patchy left lower lobe opacity which could represent pneumonia, atelectasis and/or effusion. 2. Atherosclerosis. Blood culture x 2 pending Previous Laboratory Tests 01/01/23 15:43 Sodium 138 Chloride 93 L Creatinine 0.8 06/17/22 11:55 TSH 2.58 Micro: Microbiology 02/17/23 13:08 Blood Culture - Preliminary Blood SPECIMEN COLLECTED 02/17/23 13:11 Blood Culture - Preliminary Blood SPECIMEN COLLECTED A&P Assessment and plan (1) Elevated serum creatinine: (2) Hyponatremia: (3) Weakness: (4) Abnormal finding on chest xray: (5) Advanced age: (6) Hypertension: Qualifiers: Hypertension type: primary hypertension Qualified Code(s): I10 - Essential (primary) hypertension (7) ASHD (arteriosclerotic heart disease): (8) History of ESBL E. coli infection: (9) Hypothyroidism: Qualifiers: Hypothyroidism type: acquired Qualified Code(s): E03.9 - Hypothyroidism, unspecified (10) Hiatal hernia: Plan 1. Elevated serum creatinine. I think the low sodium and the kidney dysfunction right now is from being on the Bactrim. Element of siadh considered. Her urine infection has cleared up. I will put her in the hospital for observation admission given the increase in weakness and recent similar presentation resulting iin two hospitalizations in 12/2022. I will give her some fluids overnight and we will recheck her kidney function and sodium in the morning. Also checking uric acid and other lytes. TSH earlier this year was normal. Compliant with therapy. 2. Hyponatremia. Stop the Bactrim. See above. 3. Weakness. PT eval and treat. 4. Abnormal chest xray interpretation. Despite CXR report, pt without any symptoms to suggest pneumonia or acute chf. I have cancelled antibiotics ordered by ED. Blood cultures were collected. Will monitor. Only thing to note was now WBC with low lymphocytes. Rapid covid testing was negative. 5. Advanced age. Code status and goals of care discussed with patient and family. She does want effort to revive her if needed. She wants to stay at home as much and for as long as she is able. Okay with advanced testing as she wants to know what is wrong and how to fix it. Her age is not a limiting factor for her. 6. Hypertension. Continue home coreg and isosorbide. Has not had any recent lasix. I did cut coreg in half for now but will watch blood pressures. 7. Hx ESBL ecoli UTI. Urine currently clear. Will stop further bactrim. 8. History atherosclerotic heart disease. Per records; cardiac testing in last year without concerning findings. Continue home aspirin. 9. Hypothyroidism. Continue home levothyroxine. 10. Hiatal Hernia. Conintue home protonix VTE prophylaxis: not currently indicatedin OBS status GI Prophylaxis: PPI chronically Telemetry: not currently indicated Castañeda: not currently indicated Line(s): peripheral IVs Disposition plan: Home with outpatient follow up. Anticipate follow up with Dr. Staton along with recheck her kidney function. She has an apt on 03/11/2023 already scheduled per daughter. Code Status: Full Code Supportive care otherwise Findings, concerns and plans were discussed with patient and her family and they were given an opportunity to ask questions Attestations 2 Medical Necessity Statement*: Currently anticipate a stay less than two midnights in a patient presenting with hyponatremia and elevated creatinine after being on Bactrim for urinary tract infection. She has weakness that is limiting her ability to attend to ADLs and increased sleepiness. Last time she had a similar presentation she subsequently was hospitalized twice within the same month. Will be giving her some IV fluids and reevaluating laboratory studies in the morning. Other plans as noted above. and Moderate Time for a total of 60 minutes, includes reviewing past or interval history, examining/interviewing patient, placing orders and documenting encounter Diagnoses Elevated serum creatinine R79.89 Hyponatremia E87.1 Weakness R53.1 Abnormal finding on chest xray R93.89 Advanced age R54 Primary hypertension I10 Hypertension type: primary hypertension ASHD (arteriosclerotic heart disease) I25.10 History of ESBL E. coli infection Z86.19 Acquired hypothyroidism E03.9 Hypothyroidism type: acquired Hiatal hernia K44.9
[2023-02-17] MEDS: sodium chlor 0.9% + KCl 20 mEq 20 MEQ/1,000 ML BAG 75 MEQ IV (16:15)
[2023-02-17] MEDS: aspirin 81 mg EC Tablet PO (18:39)
[2023-02-17] MEDS: isosorbide mononitrate ER 30 mg Tablet PO (18:39)
[2023-02-17] MEDS: carvedilol 6.25 mg Tablet PO (18:39)
[2023-02-17] MEDS: acetaminophen-codeine 300-30mg Tablet 1 TAB PO (20:08)
[2023-02-17] MEDS: pantoprazole DR 40 mg Tablet PO (20:09)
[2023-02-17] MEDS: ALPRAZolam 0.5 mg Tablet PO (22:00)
[2023-02-18 04:30] VITALS: BP 132/76; PULSE 80; RESP 18; TEMP 36.7; O2SAT 98
[2023-02-18 04:53] LABS: Blood Urea Nitrogen 13 mg/dL (8-23); Calcium 9.4 mg/dL (8.5-10.5); Carbon Dioxide 27 mmol/L (22-29); Chloride 100 mmol/L (98-107); Glucose 90 mg/dL (65-115); Magnesium 1.8 mg/dL (1.7-2.3); Osmolality Calculated 274 mOsm/kg (285-295); Phosphorus 3.3 mg/dL (2.5-4.5); Sodium 132 mmol/L (136-145); Uric Acid 4.4 mg/dL (2.4-5.7)
[2023-02-18] MEDS: levothyroxine 50 mcg Tablet PO (05:12)
[2023-02-18] MEDS: sodium chlor 0.9% + KCl 20 mEq 20 MEQ/1,000 ML BAG 75 MEQ IV (05:12)
[2023-02-18 07:47] VITALS: BP 159/82; PULSE 92; RESP 18; TEMP 36.6; O2SAT 90
[2023-02-18] MEDS: carvedilol 6.25 mg Tablet PO (08:57)
[2023-02-18] MEDS: pantoprazole DR 40 mg Tablet PO (08:57)
--- NOTE | 2023-02-18 09:10 | PC.CHAP ---
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 [] Patient/Family/Request visit [] Outpatient visit [] Follow-up visit [] Physician referral [] Code/Alert [x] Routine visit [] Staff referral [] Actively dying [] Patient sleeping [x] Family support [] [] Out of room [] Palliative care [] [] Receiving care in room [] Pre-surgical visit [] Trauma [] Long length of stay [] ICU visit [] Other: Relational/Emotional Strength [x] Patient feels connected with others/family/visitors/staff [] Distress [] Loneliness/isolation [] Abandonment Spirituality of Patient [x] Person of Araceli [] Attends Nondenominational of their Araceli [x] Believes in Prayer [] Reads Bible or Mu-Ism materials [] There are Spiritual issues to be addressed Supervisor Engine [employer] Interventions [x] Prayer [x] Active listening [] Non-anxious presence [x] Spiritual/emotional support [] Crisis/trauma care [] Spiritual counseling [] Bereavement support [] Provided bereavement packet [] Provided Bible/devotional materials [] Provided toy/stuffed animal, coloring book to patient or family member [] Provided Communion [] Anointing/[place] [] Salvation [x] Completed spiritual assessment [] Other: Impact on Illness or Injury [] Angry [] Fearful [] Anxious [] Often cries [] Exhaustion [] Unable to work [] Unable to attend christianity [] Unable to walk/stand [] Unable to read [] Unable to drive [] Unable to eat/drink [] Unable to sleep [] Unable to be with family [] Patient intubated [] Other: Summary Time spent with patient 5 min
--- NOTE | 2023-02-18 09:25 | P.DS_ITS ---
Discharge Providers Date of Admission: 02/17/23 13:21 Date of Discharge: February 18, 2023 Attending Provider at Admission: Candi Norwood MD Attending Provider at Discharge: Lane Krause MD Primary Care Provider: Elmo Staton DO Diagnoses at Discharge Discharge Diagnosis (1) Elevated serum creatinine: Status: Acute (2) Hyponatremia: Status: Acute (3) Weakness: Status: Acute (4) Abnormal finding on chest xray: Status: Acute (5) Advanced age: Status: Chronic (6) Hypertension: Status: Chronic Qualifiers: Hypertension type: primary hypertension Qualified Code(s): I10 - Essential (primary) hypertension (7) ASHD (arteriosclerotic heart disease): Status: Chronic (8) History of ESBL E. coli infection: Status: Chronic (9) Hypothyroidism: Status: Chronic Qualifiers: Hypothyroidism type: acquired Qualified Code(s): E03.9 - Hypothyroidism, unspecified (10) Hiatal hernia: Status: Chronic Reason for Visit 2 Reason for Visit: Weakness/Fever Hospital Course Hospital Course Gricelda is an 87-year-old white female who presented to the hospital with weakness. She was found to be hyponatremic, and have acute kidney injury. She was recently on Bactrim, day 7 of 10 for UTI. Urinalysis was clear on admission. Chest x-ray demonstrated a patchy left lung infiltrate likely atelectasis. There was no evidence of pneumonia clinically. She was given a little bit of fluids overnight and the Bactrim was stopped. The following morning the weakness she had was much improved. She was able to ambulate in the room. Sodium had climbed to 132. Creatinine had improved to 1.3. It was thought she could go home. TSH had recently been checked and was normal. Her and her family agreed with the plan, and discharge was arranged. Physical Exam Narrative: General exam no distress Neck is supple Cardiovascular regular rate and rhythm Lungs clear Abdomen is soft Extremities no cyanosis clubbing or edema Discharge Data Studies Completed and Pending Completed Studies During Hospitalization Category Date Time Status XR chest 1V portable [id number] Stat Exams 02/17/23 11:26 Completed Pending at discharge Category Date Time Status Blood Culture Stat Lab 02/17/23 13:08 Results Laboratory Results WBC 3.01 10^3/uL (3.29-11.43) L 02/17/23 11:30 RBC 4.11 10^6/uL (3.85-5.65) 02/17/23 11:30 Hgb 12.10 g/dL (11.27-16.99) 02/17/23 11:30 Hct 37.0 % (36-47) 02/17/23 11:30 MCV 90.0 fl (85-98) 02/17/23 11:30 MCH 29.4 pg (27-33) 02/17/23 11:30 MCHC 32.7 g/dL (30-55) 02/17/23 11:30 RDW 16.5 % (12.1-15.1) H 02/17/23 11:30 Plt Count 203 10^3/cmm (157-399) 02/17/23 11:30 MPV 8.7 fL (7.4-10.4) 02/17/23 11:30 Neut % (Auto) 63.6 % 02/17/23 11:30 Lymph % (Auto) 15.9 % 02/17/23 11:30 [place] % (Auto) 13.6 % 02/17/23 11:30 Eos % (Auto) 6.3 % 02/17/23 11:30 Baso % (Auto) 0.3 % 02/17/23 11:30 Neut # (Auto) 1.91 10^3/uL (1.8-7.7) 02/17/23 11:30 Lymph # (Auto) 0.5 10^3/uL (0.8-4.8) L 02/17/23 11:30 [place] # (Auto) 0.4 10^3/uL (0.2-0.9) 02/17/23 11:30 Eos # (Auto) 0.2 10^3/uL (0.0-0.8) 02/17/23 11:30 Baso # (Auto) 0.0 10^3/uL (0.0-0.1) 02/17/23 11:30 Nucleated RBC % (auto) 0 % 02/17/23 11:30 Nucleated RBCs # 0.0 /100WBC 02/17/23 11:30 Sodium 132 mmol/L (136-145) L 02/18/23 04:16 Potassium 5.0 mmol/L (3.5-5.1) 02/18/23 04:16 Chloride 100 mmol/L (98-107) 02/18/23 04:16 Carbon Dioxide 27 mmol/L (22-29) 02/18/23 04:16 Anion Gap 10.0 (5-19) 02/18/23 04:16 BUN 13 mg/dL (8-23) 02/18/23 04:16 Creatinine 1.3 mg/dL (0.5-0.9) H 02/18/23 04:16 GFR Calculation Not Reportable 02/18/23 04:16 Glucose 90 mg/dL (65-115) 02/18/23 04:16 Calculated Osmolality 274 mOsm/kg (285-295) L 02/18/23 04:16 Lactic Acid 1.7 mmol/L (0.5-2.2) 02/17/23 11:30 Uric Acid 4.4 mg/dL (2.4-5.7) 02/18/23 04:16 Calcium 9.4 mg/dL (8.5-10.5) 02/18/23 04:16 Phosphorus 3.3 mg/dL (2.5-4.5) 02/18/23 04:16 Magnesium 1.8 mg/dL (1.7-2.3) 02/18/23 04:16 Total Bilirubin 0.2 mg/dL (0.15-1.2) 02/17/23 12:20 AST 14 U/L (0-32) 02/17/23 12:20 ALT 11 U/L (0-33) 02/17/23 12:20 Alkaline Phosphatase 85 U/L (35-105) 02/17/23 12:20 Total Protein 6.2 g/dL (6.6-8.7) L 02/17/23 12:20 Albumin 3.5 g/dL (3.5-5.2) 02/17/23 12:20 Globulin 2.7 g/dL (1.3-4.6) 02/17/23 12:20 Urine Color Yellow (Yellow) 02/17/23 12:28 Urine Appearance Clear (CLEAR) 02/17/23 12:28 Urine pH 6 (5-7) 02/17/23 12:28 Ur Specific [place] 1.015 (1.005-1.030) 02/17/23 12:28 Urine Protein Neg (Negative) 02/17/23 12:28 Urine Glucose (UA) Norm (Normal) 02/17/23 12:28 Urine Ketones Negative (Negative) 02/17/23 12:28 Urine Blood Neg (Negative) 02/17/23 12:28 Urine Nitrate Negative (Negative) 02/17/23 12:28 Urine Bilirubin Neg (Negative) 02/17/23 12:28 Urine Urobilinogen Norm mg/dL (Negative) 02/17/23 12:28 Ur Leukocyte Esterase Negative (Negative) 02/17/23 12:28 SARS-CoV-2 Ag (Rapid) negative (Negative) 02/17/23 12:00 Vitals Last Vital Signs Temp 97.8 F 02/18/23 07:47 Pulse 92 02/18/23 07:47 Resp 18 02/18/23 07:47 BP 159/82 02/18/23 07:47 Pulse Ox 90 02/18/23 07:47 O2 Del Method Room Air 02/18/23 07:47 Discharge Plan Discharge Patient Disposition: Home Condition: Stable Prescriptions: Continued cholecalciferol (vitamin D3) 25 mcg (1,000 unit) capsule 25 mcg PO DAILY Patient Comments: unknown dose isosorbide mononitrate 30 mg tablet extended release 24 hr 30 mg PO QPM calcium and magnesium carbonat 975-232 mg tablet 1 tab PO DAILY multivitamin Tablet 1 tab PO DAILY PreserVision AREDS-2 250-90-40-1 mg capsule 1 tab PO BID aspirin 81 mg tablet,delayed release (DR/EC) 81 mg PO QPM Qty: 90 0RF Hold Instructions: Resume on 02/03/23. hold unitl you see primary care carvedilol 12.5 mg tablet 12.5 mg PO BID alprazolam [Xanax] 1 mg Tablet 1 mg PO BID levothyroxine 50 mcg Tablet 50 mcg PO QAM Probiotic Blend 2 billion cell-50 mg Capsule 1 cap PO QAM Rx Instructions: give with meal/snack potassium chloride 8 mEq capsule, extended release 8 meq PO DAILY PRN (Reason: when taking lasix) pantoprazole 40 mg tablet,delayed release (DR/EC) 40 mg PO Q12H 30 Days Qty: 60 0RF acetaminophen-codeine 300-30 mg tablet 1 tab PO BID furosemide 20 mg tablet 20 mg PO DAILY PRN (Reason: Greater than 3 pounds weight gain per day) Qty: 30 0RF Discharge Orders: Discharge Order (Routine); Ordered 02/18/23 Ordered By: Lane Krause Referrals: Elmo Staton DO [Primary Care Provider] - 4-7 days (BMP on Friday, recheck sodium) Discharge Diet: Regular Patient Instructions: Opioid Safety Activity Restrictions/Additional Instructions: No salt restriction on discharge Recheck laboratory on Friday, BMP to check sodium and kidney function Do not restart Bactrim Discharge Attestations Time Spent in Discharge Care*: greater than 30 min Quality Metrics Clinical Quality Measures [ No reported AMI, CVA or VTE this stay] Coding Level of Care Code 04706 Total time (in minutes) for Discharge: 35 Diagnoses Elevated serum creatinine R79.89 Hyponatremia E87.1 Weakness R53.1 Abnormal finding on chest xray R93.89 Advanced age R54 Primary hypertension I10 Hypertension type: primary hypertension ASHD (arteriosclerotic heart disease) I25.10 History of ESBL E. coli infection Z86.19 Acquired hypothyroidism E03.9 Hypothyroidism type: acquired Hiatal hernia K44.9
== END 2023-02-18 11:15 | disposition home or self-care (01) ==
LOC: ER 11:34 → ER IP 13:51 → MEDSURG 18:43 → ER IP 19:53
PROVIDERS: Admitting Provider Hospitalist; Emergency Provider Emergency Medicine; PCP Electrodiagnostic Medicine; Visit Provider Internal Medicine
DX: R79.89 Other specified abnormal findings of blood chemistry (principal); E87.1 Hypo-osmolality and hyponatremia; R93.89 Abnormal findings on diagnostic imaging of other specified body structures; R54 Age-related physical debility; I25.10 Atherosclerotic heart disease of native coronary artery without angina pectoris; Z86.19 Personal history of other infectious and parasitic diseases; E03.9 Hypothyroidism, unspecified; K44.9 Diaphragmatic hernia without obstruction or gangrene; N17.9 Acute kidney failure, unspecified; Z87.440 Personal history of urinary (tract) infections; I12.9 Hypertensive chronic kidney disease with stage 1 through stage 4 chronic kidney disease, or unspecified chronic kidney disease; N18.9 Chronic kidney disease, unspecified; E78.5 Hyperlipidemia, unspecified; I45.10 Unspecified right bundle-branch block
CPT/HCPCS: 36415; 71045; 80048; 80053; 81003; 83605; 83735; 84100; 84550; 85025; 87040; 87426; 93005; 96365; 96366; 96367; 99291; G0378; J3480; J7030

== ENCOUNTER 2023-04-11 19:03 | Emergency (ER) | payer MEDICARE, OTHER, SELFPAY ==
--- NOTE | 2023-04-11 19:10 | CTR_ITS ---
PROCEDURE INFORMATION: Exam: CT Head Without Contrast Exam date and time: 04/11/2023 7:09 PM Age: 87 years old Clinical indication: Stroke-like symptoms; Speech disturbance; Additional info: CVA like symptoms TECHNIQUE: Imaging protocol: Computed tomography of the head without contrast. Radiation optimization: All CT scans at this facility use at least one of these dose optimization techniques: automated exposure control; mA and/or kV adjustment per patient size (includes targeted exams where dose is matched to clinical indication); or iterative reconstruction. Other technique: STROKE PROTOCOL was implemented. COMPARISON: CT head wo con* [id number] 12/24/2022 4:21 AM RADIATION DOSE METRICS: Total DLP (mGy-cm): 1058.38 FINDINGS: Brain: Loss of rodriguez-white differentiation in the left frontoparietal lobes involving the lateral pre and postcentral gyri. Question focal hyperdensity within a left MCA M2 branch in the sylvian fissure, series 12, image 26. There is also loss of rodriguez-white differentiation in the left anterior inferior frontal lobe, series 12, image 26, however there is streak artifact at this level. No acute intracranial hemorrhage or extra-axial collection. No mass effect or midline shift. Mild generalized parenchymal volume loss. Moderate burden of nonspecific white matter hypoattenuation, most likely sequela of chronic microvascular ischemic change. Bilateral basal ganglia remote lacunar infarcts. Cerebral ventricles: No acute hydrocephalus. Paranasal sinuses: Visualized sinuses are well-aerated. No fluid levels. Mastoid air cells: Visualized mastoid air cells are well aerated. Orbital cavities: No acute abnormality. Bones/joints: No acute calvarial fracture. Soft tissues: No acute abnormality. 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 CT/CT head thrombolytic [id number] IMPRESSION: 1. Area of recent ischemia in the left frontoparietal lobes involving the lateral pre and postcentral gyri. Question focal thrombus in a left MCA M2 branch in the sylvian fissure, recommend CTA head/neck. 2. Small area of apparent loss of rodriguez-white differentiation in the left anterior inferior frontal lobe on axial images, appears more artifactual on sagittal and coronal reformats with significant streak artifact at this level, favor artifact, but cannot definitively exclude additional area of recent ischemia. This could be better evaluated with MRI. 3. 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 Attention on CTA. ASSESSMENT: ASPECTS ([place] Stroke Program Early CT Score) is 9. THIS REPORT CONTAINS FINDINGS THAT MAY BE CRITICAL TO PATIENT CARE. The findings were verbally communicated via telephone conference with Thad Cordero at 7:35 PM COLD STRIP FEEDER on 04/11/2023. The findings were acknowledged and understood.
--- NOTE | 2023-04-11 19:11 | CTR_ITS ---
PROCEDURE INFORMATION: Exam: CTA Head With Contrast, Arteriography Exam date and time: 04/11/2023 7:37 PM Age: 87 years old Clinical indication: Stroke-like symptoms; Speech disturbance; Additional info: CVA like symptoms TECHNIQUE: Imaging protocol: Computed tomographic angiography of the head with contrast. Exam focused on the arteries. 3D rendering (Not supervised by radiologist): MIP and/or 3D reconstructed images were created by the technologist. Radiation optimization: All CT scans at this facility use at least one of these dose optimization techniques: automated exposure control; mA and/or kV adjustment per patient size (includes targeted exams where dose is matched to clinical indication); or iterative reconstruction. Contrast material: OMNI 350; Contrast volume: 100 ml; Contrast route: INTRAVENOUS (IV); COMPARISON: CT head thrombolytic [id number] 04/11/2023 7:09 PM RADIATION DOSE METRICS: Total DLP (mGy-cm): 443.47 FINDINGS: ANTERIOR CIRCULATION: Right internal carotid artery: Patent without high-grade stenosis. Right middle cerebral artery: Right MCA M1 and M2 segments are patent. The M2 segments are mildly small in caliber relative to the contralateral side. Right anterior cerebral artery: A1 and A2 segments are patent without high-grade stenosis. Left internal carotid artery: Left ICA is patent. 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 Left middle cerebral artery: Short segment occlusion within a distal left MCA M3 branch within the anterior sylvian fissure, series 5, images 269 - 262, with reconstitution distally. Left anterior cerebral artery: A1 and A2 segments are patent without high-grade stenosis. POSTERIOR CIRCULATION: Right vertebral artery: V4 segment is patent without high-grade stenosis. Left vertebral artery: V4 segment is patent without high-grade stenosis. Basilar artery: Patent without high-grade stenosis. Right posterior cerebral artery: P1 and P2 segments are patent without high-grade stenosis. Left posterior cerebral artery: P1 and P2 segments are patent without high-grade stenosis. Other findings: No venous thrombosis. PROCEDURE INFORMATION: Exam: CTA Neck With Contrast Exam date and time: 04/11/2023 7:37 PM Age: 87 years old Clinical indication: Stroke-like symptoms; Speech disturbance; Additional info: CVA like symptoms TECHNIQUE: Imaging protocol: Computed tomographic angiography of the neck with contrast. Exam focused on the cervical segments of the vasculature. 3D rendering (Not supervised by radiologist): MIP and/or 3D reconstructed images were created by the technologist. Radiation optimization: All CT scans at this facility use at least one of these dose optimization techniques: automated exposure control; mA and/or kV adjustment per patient size (includes targeted exams where dose is matched to clinical indication); or iterative reconstruction. Contrast material: OMNI 350; Contrast volume: 100 ml; Contrast route: INTRAVENOUS (IV); COMPARISON: CT head thrombolytic [id number] 04/11/2023 7:09 PM RADIATION DOSE METRICS: Total DLP (mGy-cm): 443.47 FINDINGS: Right common carotid artery: Patent. No high grade stenosis. Right internal carotid artery: Patent. Mild carotid bulb plaque with no stenosis by NASCET criteria. Right external carotid artery: Patent. No high grade stenosis at the origin. Left common carotid artery: Patent. No high grade stenosis. Left internal carotid artery: Patent. Mild carotid bulb plaque with no stenosis by NASCET criteria. Left external carotid artery: Patent. No high grade stenosis at the origin. Right vertebral artery: Patent. No high grade stenosis. Left vertebral artery: Patent. No high grade stenosis. Thyroid: Subcentimeter right thyroid nodule, no further imaging follow-up warranted per size criteria. Lymph nodes: Calcified lymph nodes are present, consistent with sequela of prior granulomatous disease. Soft tissues: Unremarkable. Bones/joints: No acute fracture. Lungs: 2 mm right upper lobe pulmonary nodule. Other findings: Medialized/retropharyngeal course of the distal common carotid arteries. CT/CT angio headneck* [id number] IMPRESSION: 1. Short segment occlusion within a distal left MCA M3 branch within the anterior sylvian fissure, with reconstitution distally. 2. 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 3. Areas of apparent rodriguez-white dedifferentiation seen on noncontrast head CT are not well seen on this exam, which may be related to contrast/technique, but consider MRI for more definitive characterization and to exclude possible artifact on prior exam. IMPRESSION: 1. Patent cervical carotid and vertebral arteries without significant stenosis. 2. 2 mm right upper lobe pulmonary nodule. For patients at low risk (minimal or absent history of smoking and of other known risk factors), no routine follow-up is indicated. For patients at high risk (history of smoking or of other known risk factors), consider optional CT Chest at 12 months. (Reference: Anselmo) REFERENCES: NASCET CRITERIA. The degree of stenosis in the cervical segment of the internal carotid artery is based on NASCET criteria. Normal is no stenosis. Mild is less than 50% stenosis. Moderate is 50-69% stenosis. Severe is 70% to 99% stenosis. Total occlusion is no detectable patent lumen. References: Anselmo Doran, et al. Guidelines for Management of Incidental Pulmonary Nodules Detected on CT Images: From the Fleischner Society 2017. Radiology. 2017;284(1):228-243.
--- NOTE | 2023-04-11 19:32 | W.ED.NEUROSD ---
HPI - Neuro Symptoms/Deficit General: Chief Complaint: Neuro Symptoms/Deficit Stated Complaint: possible stroke @530 Time Seen by Provider: 04/11/23 19:09 History of Present Illness: Patient presents to the ER with complaints of slurred speech confusion and difficulty moving all extremities. Per family patient laid down to take a nap at 3:00 and was perfectly fine coherent can move all extremities with no problems and when she woke up at 530 she had slurred speech confusion could not formulate a thought and having difficulty grabbing objects. Per family she had 1 episode similar to this yesterday that lasted approximately 1 hour but then she all came back to normal. Patient does not have any history of strokes, she is not on any blood thinners except 81 mg aspirin. She has a diagnosis of hypothyroidism GERD congestive heart failure and anxiety. Review of Systems General: Reports: ROS unobtainable due to mental status (All negative per family) [facility] PFSH: Medical History Hiatal hernia Hypothyroidism 3 para 3 CKD (chronic kidney disease) History of diagnostic tests 07/08/2022 Carotid US 12/20/2022 Venous duplex of legs 12/20/2022 CTA chest 12/23/2022 US abdomen 12/24/[address] History of Holter monitoring -07/2022 baseline rhythm sinus, average 93 bpm, occasional ectopic beats History of echocardiogram 12/12/2022 EF 60%, normal systolic and diastolic function, no wall motion abnormalities, normal left and right ventricular size History of cardiovascular stress test 12/16/2022 no EKG changes, EF 77%, no wall motion abnormalities, low probability for coronary ischemia History of PFTs 12/17/2022 severe airflow obstruction, no bronchodilator response, moderate reduction in gas transfer, air trapping and hyperinflation noted. Consistent with severe obstructive ventilatory defect. History of ESBL E. coli infection Hypertension Hyperlipidemia ASHD (arteriosclerotic heart disease) Spondylosis Ischemic cardiomyopathy Surgical History Hx of cholecystectomy H/O cataract extraction H/O: knee surgery Family History Mother CAD (coronary artery disease) Daughter CAD (coronary artery disease) Family/Other CAD (coronary artery disease) Grandfather CAD (coronary artery disease) Son Cancer Denies family history of Diabetes Clotting disorder Dementia Chronic kidney disease (CKD) Suicide Anesthesia complication Bleeding disorder Lung disease Stroke Social History Smoking and tobacco/nicotine status: never used tobacco/nicotine Alcohol intake: never Substance/Drug Use: never Physical Exam Const: COMMON NORMALS: no acute distress, average body habitus, healthy appearing, alert and well nourished; limitations (Patient unable to formulate words and unable to follow simple commands) HENMT: COMMON NORMALS: normocephalic, atraumatic, hearing grossly normal bilaterally, external ears normal, Normal external nose present, moist oral mucous membranes and oropharynx normal HEAD & SCALP: normocephalic and atraumatic NOSE: Normal external nose present EXTERNAL EAR: Yes external ears normal Eye: COMMON NORMALS: Equal, round and reactive pupils present, EOMs intact bilaterally, conjunctivae normal and no scleral icterus CONJUNCTIVA: Yes conjunctivae normal PUPIL: Yes Equal, round and reactive pupils present Neck/C-Spine: COMMON NORMALS: no JVD Chest: COMMONS NORMALS: normal inspection of the chest and normal palpation of entire chest wall Resp: COMMON NORMALS: normal respiratory effort, No retractions, No use of accessory muscles and clear to auscultation bilaterally AUSCULTATION: clear to auscultation bilaterally Cardio: COMMON NORMALS: no JVD, regular rate, regular rhythm, S1 normal heart sound present, S2 normal heart sound present, No gallops present (Cardio), No clicks present (Cardio), No murmurs present (Cardio) and No rub (Cardio) RATE: regular rate RHYTHM: regular rhythm HEART SOUNDS: S1 normal heart sound present and S2 normal heart sound present GI: COMMON NORMALS: Normal to inspection, nondistended, normoactive bowel sounds present, Soft to palpation, non-tender, No hepatosplenomegaly present and no masses PALPATION: Yes Soft to palpation and Yes No hepatosplenomegaly present Neuro: SENSORIUM/ORIENTATION: Yes alert Course Vital Signs: Vital signs: Vital Signs Pulse Rate 115 H 04/11/23 21:45 Respiratory Rate 16 04/11/23 21:45 Blood Pressure 189/113 04/11/23 21:45 Pulse Oximetry 95 04/11/23 21:45 Oxygen Delivery Me thod Room Air 04/11/23 21:45 MDM - Neuro Symptoms/Deficit Medical Decision Making Dr. Cramer at bedside to evaluate patient. Noncontrast CT shows evidence of recent ischemia left frontal parietal lobe involving questionable thrombus of the left MCA to branch, CTA revealed distal left MCA M3 branch with an anterior fissure short segment of occlusion as well as a left cavernous ICA aneurysm measuring 9 x 9 mm, due to the occlusion we will be transferring patient to [facility]. Dr. Dr. Farr was auto accepted by the electronic funds transfer coordinator awaiting callback. Dr. Sutton called back and wanted to give her 500 mL bolus and put her on 600 mg Plavix. Patient be transferred to [facility] Differential Diagnosis Likely cerebrovascular accident and transient cerebral ischemia; Unlikely carpal tunnel syndrome, convulsions, delirium, subarachnoid hemorrhage, peripheral neuropathy or multiple sclerosis Medical Records I reviewed the patient's medical records. Lab Data I reviewed the patient's lab results. 04/11/23 19:30 04/11/23 19:[address] 04/11/23 19:10 IMPRESSION: 1. Area of recent ischemia in the left frontoparietal lobes involving the lateral pre and postcentral gyri. Question focal thrombus in a left MCA M2 branch in the sylvian fissure, recommend CTA head/neck. 2. Small area of apparent loss of rodriguez-white differentiation in the left anterior inferior frontal lobe on axial images, appears more artifactual on sagittal and coronal reformats with significant streak artifact at this level, favor artifact, but cannot definitively exclude additional area of recent ischemia. This could be better evaluated with MRI. 3. 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 Attention on CTA. ASSESSMENT: ASPECTS ([place] Stroke Program Early CT Score) is 9. THIS REPORT CONTAINS FINDINGS THAT MAY BE CRITICAL TO PATIENT CARE. The findings were verbally communicated via telephone conference with Thad Cordero at 7:35 PM COMPUTER NETWORK ENGINEER on 04/11/2023. The findings were acknowledged and understood. Head/Neck CTA 04/11/23 19:11 IMPRESSION: 1. Short segment occlusion within a distal left MCA M3 branch within the anterior sylvian fissure, with reconstitution distally. 2. 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 3. Areas of apparent rodriguez-white dedifferentiation seen on noncontrast head CT are not well seen on this exam, which may be related to contrast/technique, but consider MRI for more definitive characterization and to exclude possible artifact on prior exam. IMPRESSION: 1. Patent cervical carotid and vertebral arteries without significant stenosis. 2. 2 mm right upper lobe pulmonary nodule. For patients at low risk (minimal or absent history of smoking and of other known risk factors), no routine follow-up is indicated. For patients at high risk (history of smoking or of other known risk factors), consider optional CT Chest at 12 months. (Reference: Anselmo) REFERENCES: NASCET CRITERIA. The degree of stenosis in the cervical segment of the internal carotid artery is based on NASCET criteria. Normal is no stenosis. Mild is less than 50% stenosis. Moderate is 50-69% stenosis. Severe is 70% to 99% stenosis. Total occlusion is no detectable patent lumen. References: Anselmo Doran, et al. Guidelines for Management of Incidental Pulmonary Nodules Detected on CT Images: From the Fleischner Society 2017. Radiology. 2017;284(1):228-243. Laboratory Results WBC 4.53 10^3/uL (3.29-11.43) 04/11/23 19:30 RBC 4.54 10^6/uL (3.85-5.65) 04/11/23 19:30 Hgb 13.50 g/dL (11.27-16.99) 04/11/23 19:30 Hct 42.0 % (36-47) 04/11/23 19:30 MCV 92.5 fl (85-98) 04/11/23 19:30 MCH 29.7 pg (27-33) 04/11/23 19:30 MCHC 32.1 g/dL (30-55) 04/11/23 19:30 RDW 13.0 % (12.1-15.1) 04/11/23 19:30 Plt Count 260 10^3/cmm (157-399) 04/11/23 19:30 MPV 8.6 fL (7.4-10.4) 04/11/23 19:30 Neut % (Auto) 56.2 % 04/11/23 19:30 Lymph % (Auto) 29.6 % 04/11/23 19:30 [place] % (Auto) 11.3 % 04/11/23 19:30 Eos % (Auto) 2.0 % 04/11/23 19:30 Baso % (Auto) 0.7 % 04/11/23 19:30 Neut # (Auto) 2.55 10^3/uL (1.8-7.7) 04/11/23 19:30 Lymph # (Auto) 1.3 10^3/uL (0.8-4.8) 04/11/23 19:30 [place] # (Auto) 0.5 10^3/uL (0.2-0.9) 04/11/23 19:30 Eos # (Auto) 0.1 10^3/uL (0.0-0.8) 04/11/23: Baso # (Auto) 0.0 10^3/uL (0.0-0.1) 04/11/23 19:30 Nucleated RBC % (auto) 0 % 04/11/23 19:30 Nucleated RBCs # 0.0 /100WBC 04/11/23 19:30 Sodium 137 mmol/L (136-145) 04/11/23 19:30 Potassium 4.6 mmol/L (3.5-5.1) 04/11/23 19:30 Chloride 98 mmol/L (98-107) 04/11/23 19:30 Carbon Dioxide 31 mmol/L (22-29) H 04/11/23 19:30 Anion Gap 12.6 (5-19) 04/11/23 19:30 BUN 15 mg/dL (8-23) 04/11/23 19:30 Creatinine 0.9 mg/dL (0.5-0.9) 04/11/23 19:30 GFR Calculation Not Reportable 04/11/23 19:30 Glucose 104 mg/dL (65-115) 04/11/23 19:30 POC Glucose 97 mg/dL (70-110) 04/11/23: Calculated Osmolality 285 mOsm/kg (285-295) 04/11/23:30 Calcium 10.3 mg/dL (8.5-10.5) 04/11/23 19:30 Magnesium 2.1 mg/dL (1.7-2.3) 04/11/23 19:30 Total Bilirubin 0.3 mg/dL (0.15-1.2) 04/11/23 19:30 AST 18 U/L (0-32) 04/11/23 19:30 ALT 9 U/L (0-33) 04/11/23 19:30 Alkaline Phosphatase 111 U/L (35-105) H 04/11/23 19:30 Troponin T Baseline 20 ng/L (0-10) H 04/11/23 19:30 Troponin T 120 Minute 16.79 ng/L (0-10) H 04/11/23 21:19 Delta Troponin T -3.21 ABS# (0-10) L 04/11/23 21:19 C-Reactive Protein 7.4 mg/L (0.0-4.9) H 04/11/23 19:30 NT-Pro-B Natriuret Pep 1458 pg/mL (0-450) H 04/11/23 19:30 Total Protein 7.5 g/dL (6.6-8.7) 04/11/23 19:30 Albumin 3.8 g/dL (3.5-5.2) 04/11/23 19:30 Globulin 3.7 g/dL (1.3-4.6) 04/11/23 19:30 TSH 2.62 uIU/mL (0.27-4.20) 04/11/23 19:30 Urine Color Yellow (Yellow) 04/11/23 19:51 Urine Appearance Sl hazy (CLEAR) A 04/11/23 19:51 Urine pH 9 (5-7) H 04/11/23 19:51 Ur Specific [place] 1.010 (1.005-1.030) 04/11/23 19:51 Urine Protein Neg (Negative) 04/11/23 19:51 Urine Glucose (UA) Norm (Normal) 04/11/23 19:51 Urine Ketones Negative (Negative) 04/11/23 19:51 Urine Blood Neg (Negative) 04/11/23 19:51 Urine Nitrate Negative (Negative) 04/11/23 19:51 Urine Bilirubin Neg (Negative) 04/11/23 19:51 Prot Sulfosalicylic Acd Negative (Negative) 04/11/23 19:51 Urine Urobilinogen Norm mg/dL (Negative) 04/11/23 19:51 Ur Leukocyte Esterase 1+ (Negative) H 04/11/23 19:51 Urine RBC 0-4 /hpf (0-2) H 04/11/23 19:51 Urine WBC 15-25 /hpf (0-5) H 04/11/23 19:51 Ur Squamous Epith Cells 0-4 /hpf (0-5) H 04/11/23 19:51 Amorphous Sediment Not Reportable 04/11/23 19:51 Urine Bacteria 2+ /hpf (NONE) H 04/11/23 19:51 Urine Mucus Trace /hpf 04/11/23 19:51 All radiology interpretation(s) finalized by discharge EKG Data EKG 1: I personally reviewed and interpreted this EKG as follows: EKG interpretation date: 04/11/23 EKG interpretation time: 20:12 Prior EKG tracings: not available for review Interpretation: Ventricular rate 102 bpm, MI interval 161, QRS duration 120, QTc of 365, sinus tachycardia, right bundle branch block Discharge Plan Discharge Patient Disposition: Xfer Short-Term Hosp Clinical Impression: Acute CVA (cerebrovascular accident) Condition: Stable Prescriptions: No Action cholecalciferol (vitamin D3) 25 mcg (1,000 unit) capsule 25 mcg PO DAILY Patient Comments: unknown dose isosorbide mononitrate 30 mg tablet extended release 24 hr 30 mg PO QPM calcium and magnesium carbonat 975-232 mg tablet 1 tab PO DAILY multivitamin Tablet 1 tab PO DAILY PreserVision AREDS-2 250-90-40-1 mg capsule 1 tab PO BID aspirin 81 mg tablet,delayed release (DR/EC) 81 mg PO QPM Qty: 90 0RF Hold Instructions: Resume on 02/03/23. hold unitl you see primary care carvedilol 12.5 mg tablet 12.5 mg PO BID alprazolam [Xanax] 1 mg Tablet 1 mg PO BID levothyroxine 50 mcg Tablet 50 mcg PO QAM Probiotic Blend 2 billion cell-50 mg Capsule 1 cap PO QAM Rx Instructions: give with meal/snack potassium chloride 8 mEq capsule, extended release 8 meq PO DAILY PRN (Reason: when taking lasix) pantoprazole 40 mg tablet,delayed release (DR/EC) 40 mg PO Q12H 30 Days Qty: 60 0RF acetaminophen-codeine 300-30 mg tablet 1 tab PO BID furosemide 20 mg tablet 20 mg PO DAILY PRN (Reason: Greater than 3 pounds weight gain per day) Qty: 30 0RF Referrals: Elmo Staton DO [Primary Care Provider] - Coding Level of Care Code ED Sewer Tapper for [place]
[2023-04-11 19:43] LABS: Glucose Point of Care 97 mg/dL (70-110)
[2023-04-11] MEDS: iohexol 350 mg/mL 500 mL Btl (per mL) IV (19:45)
[2023-04-11 19:53] LABS: Basophils % 0.7 %; Eosinophils # 0.1 10^3/uL (0.0-0.8); Lymphocytes # 1.3 10^3/uL (0.8-4.8); Lymphocytes % 29.6 %; Mean Corpuscular HGB Conc 32.1 g/dL (30-55); Mean Corpuscular Hemoglobin 29.7 pg (27-33); Mean Corpuscular Volume 92.5 fl (85-98); Mean Platelet Volume 8.6 fL (7.4-10.4); Monocytes # 0.5 10^3/uL (0.2-0.9); Monocytes % 11.3 %; Neutrophils # 2.55 10^3/uL (1.8-7.7); Neutrophils % 56.2 %; Nucleated Red Blood Cells % 0 %; Platelet Count 260 10^3/cmm (157-399); Red Blood Count 4.54 10^6/uL (3.85-5.65); White Blood Count 4.53 10^3/uL (3.29-11.43)
[2023-04-11 20:11] LABS: Troponin(5th) Baseline 20 ng/L (0-10)
--- NOTE | 2023-04-11 20:12 | ECG_ITS ---
[facility] Test Date: 2023-04-11 Pat Name: Gricelda Andrade Department: Room: Gender: Female [place]: : 1935 Requested By: Thad Cordero Order Number: [id number] Britt MD: Diego Christy M.D. 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 [email or web address]
[2023-04-11 20:19] LABS: Alanine Aminotransferase 9 U/L (0-33); Albumin Level 3.8 g/dL (3.5-5.2); Alkaline Phosphatase 111 U/L (35-105); Blood Urea Nitrogen 15 mg/dL (8-23); C Reactive Protein 7.4 mg/L (0.0-4.9); Calcium 10.3 mg/dL (8.5-10.5); Carbon Dioxide 31 mmol/L (22-29); Chloride 98 mmol/L (98-107); Globulin 3.7 g/dL (1.3-4.6); Glucose 104 mg/dL (65-115); Magnesium 2.1 mg/dL (1.7-2.3); NT Pro B Type Natriuretic Pept 1458 pg/mL (0-450); Osmolality Calculated 285 mOsm/kg (285-295); Sodium 137 mmol/L (136-145); Thyroid Stimulating Hormone 2.62 uIU/mL (0.27-4.20); Total Bilirubin 0.3 mg/dL (0.15-1.2); Total Protein 7.5 g/dL (6.6-8.7)
--- NOTE | 2023-04-11 20:19 | P.CONIM_ITS ---
Providers/Reason For Consult 2 Consulting Physician/Specialty*: Prem Cramer MD neurology and epilepsy Reason for Consult*: Code stroke emergency department room #10/acute care Primary Care Provider: Elmo Staton DO History of Present Illness History of Present Illness Gricelda Andrade is a 87 year old female with a history of hypertension, coronary atherosclerotic heart disease, hyperlipidemia and E. coli sepsis and hyponatremia secondary to Bactrim. According to the family, the patient was seen by her family physician Dr. Staton on the morning of 04/11/2023. Patient had repeat electrolytes, BUN, creatinine and glucose. Patient's serum CO2 was reported to be slightly elevated at 33. Serum sodium was 139. BUN and creatinine were 17 and 0.9 respectively. Serum glucose 84. After returning home from the doctor's office, the family stated the patient laid down and took a nap on the afternoon of 04/11/2023 between 2:30 PM and 3 PM. The daughter states the patient woke up around 5:30 PM and was displaying clumsiness in the right hand with right arm weakness and right leg weakness and slurred speech with the daughter stated was very garbled and she could not understand her mother. The daughter stated that she assisted the patient to the bathroom and the patient was displaying right arm and right leg weakness and confusion and continued slurred and garbled speech. The daughter stated that she and her brother brought the patient via car to the [facility] emergency room. Code stroke was initiated and the emergency department room #10. Initial NIH score =6-8 performed by the nurse. Repeat NIH score =5 on neurology assessment. Stat noncontrast head CT and CT angiogram of the head and neck were ordered. Due to patient having poor venous access lab and CT angiogram were delayed. IV access had to be obtained via Doppler ultrasound. Serum glucose 97 with normal white count. Since the patient's last known well was between 230 and 3 PM on 04/11/2023, patient was outside of the 4-1/2-hour intravenous thrombolytic window and therefore no intravenous thrombolytic (tenecteplase) was administered. In view of the CT angiogram findings, patient was referred to design engineering intern to determine if patient is candidate for thrombectomy and to evaluate the reported left cavernous internal carotid aneurysm. According to the family, on 04/10/2023 patient experienced an episode of confusion and stated that she did not feel well but according to the daughter, the patient will display confusion when she first awakens from sleep. Stat noncontrast head CT revealed: Area of recent ischemia in the left frontoparietal lobes involving the lateral pre and postcentral gyri. Question focal thrombus in a left MCA M2 branch in the sylvian fissure, recommend CTA head/neck. CT angiogram of the head and neck 04/11/2023: IMPRESSION: 1. Short segment occlusion within a distal left MCA M3 branch within the anterior sylvian fissure, with reconstitution distally. 2. 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 3. Areas of apparent rodriguez-white dedifferentiation seen on noncontrast head CT are not well seen on this exam, which may be related to contrast/technique, but consider MRI for more definitive characterization and to exclude possible artifact on prior exam. Past medical history: Hypothyroidism Hypertension Coronary atherosclerotic heart disease Hyperlipidemia E. coli sepsis December 2022 Urinary tract infection December 2022 Hyponatremia reported by the patient's daughter to be secondary to Bactrim Chronic kidney disease Tremor Drug allergies: Bactrim which resulted in hyponatremia Current home medications: Synthroid 50 mcg p.o. daily Aspirin 81 mg p.o. daily Isosorbide mononitrate XR 30 mg p.o. daily Xanax 1 mg p.o. twice daily Coreg 12.5 mg p.o. twice daily Vitamin D3 1000 international units p.o. daily Losartan 100 mg p.o. daily Past medications: Bactrim which resulted in hyponatremia, Lasix Habits: None Review of Systems 2 General: Reports: 10 or more systems reviewed and unremarkable except in HPI and below Medications/Allergies Home Medications Medication Instructions Recorded Confirmed Last Taken Type cholecalciferol (vitamin D3) 25 25 mcg PO DAILY 08/24/19 02/17/23 02/17/23 History mcg (1,000 unit) capsule isosorbide mononitrate 30 mg 30 mg PO QPM 06/05/20 02/17/23 02/16/23 History tablet,extended release 24 hr calcium carbonate 975 mg-magnesium 1 tab PO DAILY 09/23/22 02/17/23 02/17/23 History carbonate 232 mg oral tablet multivitamin 1 tab PO DAILY 09/23/22 02/17/2323 History vit C 250 mg-vit E 90 mg-zinc 40 1 tab PO BID 09/23/22 02/17/23 02/17/23 History mg-copper 1 [id number]-[id number] capsule (PreserVision AREDS-2) acetaminophen 300 mg-codeine 30 mg 1 tab PO BID 12/15/22 02/17/23 02/17/23 History tablet furosemide 20 mg tablet 20 mg PO DAILY PRN Greater than 3 12/16/22 02/17/23 Unknown Rx pounds weight gain per day #30 tabs L.acidophil-L.casei-B.bifid-B.longum-FOS 1 cap PO QAM 12/20/22 02/17/23 02/17/23 History 2 billion cell-50 mg capsule (Probiotic Blend) alprazolam 1 mg tablet (Xanax) 1 mg PO BID 12/20/22 02/17/23 02/17/23 History carvedilol 12.5 mg tablet 12.5 mg PO BID 12/20/22 02/17/23 02/17/23 History levothyroxine 50 mcg tablet 50 mcg PO QAM 12/20/22 02/17/23 02/17/23 History potassium chloride 8 mEq 8 meq PO DAILY PRN when taking 12/20/22 02/17/23 02/17/23 History capsule,extended release lasix pantoprazole 40 mg tablet,delayed 40 mg PO Q12H 30 days #60 tabs 12/25/22 02/17/23 02/17/23 Rx release aspirin 81 mg tablet,delayed 81 mg PO QPM #90 tabs 02/17/23 02/17/23 02/16/23 Rx release Allergies Allergy/AdvReac Type Severity Reaction Status Date / Time No Known Allergies Allergy Verified 02/17/23 11:13 PFSH Acute 2 PFSH: Medical History Hiatal hernia Hypothyroidism 3 para 3 CKD (chronic kidney disease) History of diagnostic tests 07/08/2022 Carotid US 12/20/2022 Venous duplex of legs 12/20/2022 CTA chest 12/23/2022 US abdomen 12/24/[address] History of Holter monitoring -07/2022 baseline rhythm sinus, average 93 bpm, occasional ectopic beats History of echocardiogram 12/12/2022 EF 60%, normal systolic and diastolic function, no wall motion abnormalities, normal left and right ventricular size History of cardiovascular stress test 12/16/2022 no EKG changes, EF 77%, no wall motion abnormalities, low probability for coronary ischemia History of PFTs 12/17/2022 severe airflow obstruction, no bronchodilator response, moderate reduction in gas transfer, air trapping and hyperinflation noted. Consistent with severe obstructive ventilatory defect. History of ESBL E. coli infection Hypertension Hyperlipidemia ASHD (arteriosclerotic heart disease) Spondylosis Ischemic cardiomyopathy Surgical History Hx of cholecystectomy H/O cataract extraction H/O: knee surgery Family History Mother CAD (coronary artery disease) Daughter CAD (coronary artery disease) Family/Other CAD (coronary artery disease) Grandfather CAD (coronary artery disease) Son Cancer Denies family history of Diabetes Clotting disorder Dementia Chronic kidney disease (CKD) Suicide Anesthesia complication Bleeding disorder Lung disease Stroke Social History Smoking and tobacco/nicotine status: never used tobacco/nicotine Alcohol intake: never Substance/Drug Use: never Physical Exam 2 Narrative: NIH score =5 (secondary to intermittent receptive aphasia, confusion, patient only answered 1 question correctly, severe dysarthria with intermittent garbled speech) The patient is alert. The patient was unable to give me her date of but she was able to tell me her name. Patient followed both commands. Cranial nerves II through XII revealed no obvious facial weakness. Speech severely dysarthric and at times difficult to understand. At times the patient displayed some intermittent receptive aphasia. Pupils 4 mm round reactive to light and accommodation. Extraocular movements grossly intact. There were no obvious nystagmus. Motor examination revealed no drift. There was no obvious clumsiness of either extremity. Sensory examination was intact to touch. No neglect or abnormalities on double sensory stimulation could not be assessed secondary to confusion. Deep tendon reflexes 1-2+. Plantar responses flexor bilaterally. There was no clonus. Throat clear. Lungs clear. Heart regular rhythm and rate. Extremities were negative for cyanosis or edema. Data 04/11/23 19:30 04/11/23 19:30 A&P Assessment and plan (1) Cerebral infarction, left hemisphere: Impression: 1. Area of recent ischemia in the left frontoparietal lobes involving the lateral pre and postcentral gyri. Question focal thrombus in a left MCA M2 branch in the sylvian fissure 2. Short segment occlusion within a distal left MCA M3 branch within the anterior sylvian fissure, with reconstitution distally. 3. 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 Plan: 1. Recommend transfer to design engineering intern to determine if patient is candidate for thrombectomy as well as to evaluate the left cavernous internal carotid artery aneurysm (2) Middle cerebral artery stenosis: (3) Left cavernous carotid aneurysm: (4) Receptive aphasia: (5) Confusion: Consult Attestations 2 Medical Necessity Statement: The patient was evaluated by neurology for acute care and code stroke emergency department room #10 Coding Level of Care Code 43964 Diagnoses Cerebral infarction, left hemisphere I63.9 Middle cerebral artery stenosis I66.09 Left cavernous carotid aneurysm I67.1 Receptive aphasia R47.01 Confusion R41.0
[2023-04-11 20:20] LABS: Anion Gap 12.6 (5-19); Potassium 4.6 mmol/L (3.5-5.1)
[2023-04-11 20:22] LABS: Aspartate Amino Transferase 18 U/L (0-32)
[2023-04-11 20:29] LABS: Add Urine Microscopic? YES; Urine Appearance SL Hazy (CLEAR); Urine Color Yellow (Yellow)
[2023-04-11 20:30] LABS: Add Urine Culture? Yes; Bacteria Urine 2+ /hpf; Bilirubin Urine Neg (Negative); Blood Urine Neg (Negative); Glucose Urine UA Norm (Normal); Ketones Urine Negative (Negative); Leukocyte Esterase Urine 1+ (Negative); Mucus Urine TRACE /hpf; Nitrate Urine Negative (Negative); Protein Urine Neg (Negative); RBC Urine 0-4 /hpf (0-2); Squamous Epithelial Cell Urine 0-4 /hpf (0-5); Sulfosalicylic Acid Urine Negative (Negative); Urobilinogen Urine Norm (Negative); WBC Urine 15-25 /hpf (0-5); pH Urine 9 (5-7)
[2023-04-11 20:57] VITALS: BP 184/85; PULSE 101; RESP 15; O2SAT 93
[2023-04-11] MEDS: sodium chloride 0.9% 500 ML 999 ML IV (21:25)
[2023-04-11] MEDS: clopidogrel 300 mg Tablet 600 MG PO (21:37)
[2023-04-11 21:45] VITALS: BP 189/113; PULSE 115; RESP 16; O2SAT 95
[2023-04-11 21:48] LABS: Troponin 5 2HR 16.79 ng/L (0-10)
[2023-04-11 21:51] LABS: Troponin 5 2HR Delta -3.21 ABS# (0-10)
[2023-04-11 23:00] VITALS: BP 172/116; PULSE 113; RESP 18; O2SAT 93
[2023-04-11 23:30] VITALS: BP 184/120; PULSE 116; RESP 18; O2SAT 93
[2023-04-12 00:30] VITALS: BP 177/119; PULSE 117; RESP 20; O2SAT 92
[2023-04-12 01:00] VITALS: BP 192/117; PULSE 118; RESP 21; O2SAT 93
[2023-04-12 01:53] LABS: Troponin 5 6HR 21.55 ng/L (0-10); Troponin 5 6HR Delta 1.55 ng/L (0-12)
== END 2023-04-12 01:25 | disposition short-term general hospital (02) ==
PROVIDERS: Emergency Provider Emergency Medicine; PCP Electrodiagnostic Medicine
DX: I63.9 Cerebral infarction, unspecified (principal); Z79.82 Long term (current) use of aspirin; I12.9 Hypertensive chronic kidney disease with stage 1 through stage 4 chronic kidney disease, or unspecified chronic kidney disease; N18.9 Chronic kidney disease, unspecified; I25.5 Ischemic cardiomyopathy; E78.5 Hyperlipidemia, unspecified
CPT/HCPCS: 36415; 36416; 51702; 70450; 70496; 70498; 80053; 81001; 82962; 83735; 83880; 84443; 84484; 85025; 86140; 87077; 87086; 87186; 93005; 99285; J7040; Q9967

== ENCOUNTER 2023-05-17 18:13 | Emergency (ER) | payer MEDICARE, OTHER, SELFPAY ==
--- NOTE | 2023-05-17 18:27 | XRR_ITS ---
PROCEDURE INFORMATION: Exam: XR Chest Exam date and time: 05/17/2023 6:43 PM Age: 87 years old Clinical indication: Chest pressure; Patient HX: HTN; Chest pain; Recent stroke TECHNIQUE: Imaging protocol: Radiologic exam of the chest. Views: 1 view. COMPARISON: CR XR chest 1V portable [id number] 02/17/2023 11:36 AM FINDINGS: Lungs: Stable calcified granuloma in the right lower lobe. No focal consolidation. No pulmonary edema. Pleural spaces: No pleural effusion. No pneumothorax. Heart/Mediastinum: Stable moderate enlargement of the cardiac silhouette. Mediastinal contours are unremarkable. Stable small hiatal hernia. Stable calcified lymph nodes in the right and left rosangela. Vasculature: Stable vascular calcifications in the aorta. Bones/joints: Degenerative changes in the spine and shoulders. Moderate scoliosis in the visualized spine. Bones are diffusely osteopenic. XR/XR chest 1V portable [id number] IMPRESSION: 1. No acute cardiopulmonary process. 2. Incidental/nonacute findings are listed in the report.
[2023-05-17 18:36] VITALS: BP 213/116; PULSE 118; RESP 20; TEMP 36.7; O2SAT 90
--- NOTE | 2023-05-17 18:40 | ED_ITS ---
HPI - Weakness 2 General: Chief complaint: Weakness Stated complaint: High Blood Pressure Time Seen by Provider: 05/17/23 18:19 Source: patient Mode of arrival: ambulatory Limitations: no limitations History of Present Illness: 87-year-old female states that today she has been having increased weakness and fatigue and states she just does not feel very well she is also had some shortness of breath with exertion she denies any cough or fever denies any chest pain. She had no vomiting or diarrhea. Associated symptoms: Denies chest pain, chills, dysuria, fever(s), headache(s), nausea or vomiting Review of Systems 2 Const: Reports: fatigue; Denies: fever(s), chills, body aches or change in appetite Eyes: Denies: blurry vision or eye discomfort ENMT: Denies: throat pain or dental pain Card: Denies: chest pain Resp: Reports: dyspnea GI: Denies: abdominal pain, nausea, vomiting or diarrhea : Denies: dysuria Musc: Denies: neck pain or back pain Skin/Breast: Denies: rash Neuro: Denies: headache(s) PFSH ED 2 PFSH: Medical History Hiatal hernia Hypothyroidism 3 para 3 CKD (chronic kidney disease) History of diagnostic tests 07/08/2022 Carotid US 12/20/2022 Venous duplex of legs 12/20/2022 CTA chest 12/23/2022 US abdomen 12/24/[address] History of Holter monitoring -07/2022 baseline rhythm sinus, average 93 bpm, occasional ectopic beats History of echocardiogram 12/12/2022 EF 60%, normal systolic and diastolic function, no wall motion abnormalities, normal left and right ventricular size History of cardiovascular stress test 12/16/2022 no EKG changes, EF 77%, no wall motion abnormalities, low probability for coronary ischemia History of PFTs 12/17/2022 severe airflow obstruction, no bronchodilator response, moderate reduction in gas transfer, air trapping and hyperinflation noted. Consistent with severe obstructive ventilatory defect. History of ESBL E. coli infection Hypertension Hyperlipidemia ASHD (arteriosclerotic heart disease) Spondylosis Ischemic cardiomyopathy Surgical History Hx of cholecystectomy H/O cataract extraction H/O: knee surgery Family History Mother CAD (coronary artery disease) Daughter CAD (coronary artery disease) Family/Other CAD (coronary artery disease) Grandfather CAD (coronary artery disease) Son Cancer Denies family history of Diabetes Clotting disorder Dementia Chronic kidney disease (CKD) Suicide Anesthesia complication Bleeding disorder Lung disease Stroke Social History Smoking and tobacco/nicotine status: never used tobacco/nicotine Alcohol intake: never Substance/Drug Use: never Physical Exam 2 Const: COMMON NORMALS: patient oriented x3 HENMT: COMMON NORMALS: normocephalic and atraumatic HEAD & SCALP: n ormocephalic and atraumatic Neck/C-Spine: COMMON NORMALS: full ROM and supple Chest: COMMONS NORMALS: normal inspection of the chest and normal palpation of entire chest wall Resp: COMMON NORMALS: No retractions, No use of accessory muscles and clear to auscultation bilaterally AUSCULTATION: clear to auscultation bilaterally Cardio: COMMON NORMALS: regular rhythm and No murmurs present (Cardio) R ATE: tachycardic RHYTHM: regular rhythm GI: COMMON NORMALS: Normal to inspection, nondistended, normoactive bowel sounds present, Soft to palpation, non-tender and no masses PALPATION: Yes Soft to palpation Extremity: COMMON NORMALS: normal to inspection and full ROM Neuro: COMMON NORMALS: patient oriented x3, moves all extremities and no focal motor deficits Psych: COMMON NORMALS: mental status grossly normal, Normal thought process present and cooperative THOUGHT PROCESS: Normal thought process present Skin: COMMON NORMALS: no rashes or lesions noted and no wounds GENERAL SKIN EXAM: no rashes or lesions noted Course 2 Vital Signs: Vital signs: Vital Signs Temperature 98.0 F 05/17/23 18:36 Pulse Rate 106 H 05/17/23 19:20 Respiratory Rate 16 05/17/23 19:20 Blood Pressure 154/95 05/17/23 19:41 Pulse Oximetry 90 05/17/23 19:20 Oxygen Delivery Me thod Room Air 05/17/23 18:36 MDM - Weakness Medical Decision Making Patient presents here with hypertension patient's blood work CT angio shows no acute findings. She has no stroke symptoms she feels much improved after blood pressure improved she is wanting to go home I feel she is stable for discharge she had no chest pain she has appoint with her pet care associate on Friday she is to monitor blood pressure until then and return if worsening she understands agrees to plan. Medical Records I reviewed the patient's medical records. Lab Data I reviewed the patient's lab results. 05/17/23 18:55 05/17/23 19:25 Radiology Impressions Chest X-Ray 05/17/23 18:27 IMPRESSION: 1. No acute cardiopulmonary process. 2. Incidental/nonacute findings are listed in the report. Chest CTA 05/17/23 19:23 IMPRESSION: 1. No evidence for pulmonary embolism. 2. No acute cardiopulmonary process. 3. Moderate hiatal hernia. 4. Incidental/nonacute findings are listed in the report. Laboratory Results WBC 9.35 10^3/uL (3.29-11.43) 05/17/23 18:55 RBC 4.52 10^6/uL (3.85-5.65) 05/17/23 18:55 Hgb 13.50 g/dL (11.27-16.99) 05/17/23 18:55 Hct 43.1 % (36-47) 05/17/23 18:55 MCV 95.4 fl (85-98) 05/17/23 18:55 MCH 29.9 pg (27-33) 05/17/23 18:55 MCHC 31.3 g/dL (30-55) 05/17/23 18:55 RDW 13.6 % (12.1-15.1) 05/17/23 18:55 Plt Count 236 10^3/cmm (157-399) 05/17/23 18:55 MPV 9.0 fL (7.4-10.4) 05/17/23 18:55 Neut % (Auto) 76.8 % 05/17/23 18:55 Lymph % (Auto) 11.6 % 05/17/23 18:55 [place] % (Auto) 9.9 % 05/17/23 18:55 Eos % (Auto) 1.1 % 05/17/23 18:55 Baso % (Auto) 0.4 % 05/17/23 18:55 Neut # (Auto) 7.18 10^3/uL (1.8-7.7) 05/17/23 18:55 Lymph # (Auto) 1.1 10^3/uL (0.8-4.8) 05/17/23 18:55 [place] # (Auto) 0.9 10^3/uL (0.2-0.9) 05/17/23 18:55 Eos # (Auto) 0.1 10^3/uL (0.0-0.8) 05/17/23 18:55 Baso # (Auto) 0.0 10^3/uL (0.0-0.1) 05/17/23 18:55 Nucleated RBC % (auto) 0 % 05/17/23 18:55 Nucleated RBCs # 0.0 /100WBC 05/17/23 18:55 PT 14.70 SECONDS (12.1-14.9) 05/17/23 19:25 INR 1.11 (0.8-1.2) 05/17/23 19:25 D-Dimer 0.71 ug/mLFEU (0-0.59) H 05/17/23 19:25 Sodium 136 mmol/L (136-145) 05/17/23 19:25 Potassium 3.9 mmol/L (3.5-5.1) 05/17/23 19:25 Chloride 99 mmol/L (98-107) 05/17/23 19:25 Carbon Dioxide 29 mmol/L (22-29) 05/17/23 19:25 Anion Gap 11.9 (5-19) 05/17/23 19:25 BUN 11 mg/dL (8-23) 05/17/23 19:25 Creatinine 0.8 mg/dL (0.5-0.9) 05/17/23 19:25 GFR Calculation Not Reportable 05/17/23 19:25 Glucose 96 mg/dL (65-115) 05/17/23 19:25 Calculated Osmolality 281 mOsm/kg (285-295) L 05/17/23 19:25 Calcium 9.7 mg/dL (8.5-10.5) 05/17/23 19:25 Total Bilirubin 0.7 mg/dL (0.15-1.2) 05/17/23 19:25 AST 14 U/L (0-32) 05/17/23 19:25 ALT 8 U/L (0-33) 05/17/23 19:25 Alkaline Phosphatase 98 U/L (35-105) 05/17/23 19:25 Troponin T Baseline 17 ng/L (0-10) H 05/17/23 18:55 NT-Pro-B Natriuret Pep 3514 pg/mL (0-450) H 05/17/23 19:25 Total Protein 6.3 g/dL (6.6-8.7) L 05/17/23 19:25 Albumin 3.8 g/dL (3.5-5.2) 05/17/23 19:25 Globulin 2.5 g/dL (1.3-4.6) 05/17/23 19:25 Lipase 7 U/L (13-60) L 05/17/23 19:25 TSH 1.17 uIU/mL (0.27-4.20) 05/17/23 19:25 Urine Color Colorless (Yellow) 05/17/23 18:59 Urine Appearance Clear (CLEAR) 05/17/23 18:59 Urine pH 8 (5-7) H 05/17/23 18:59 Ur Specific Pollock 1.010 (1.005-1.030) 05/17/23 18:59 Urine Protein Neg (Negative) 05/17/23 18:59 Urine Glucose (UA) Norm (Normal) 05/17/23 18:59 Urine Ketones Negative (Negative) 05/17/23 18:59 Urine Blood Neg (Negative) 05/17/23 18:59 Urine Nitrate Negative (Negative) 05/17/23 18:59 Urine Bilirubin Neg (Negative) 05/17/23 18:59 Prot Sulfosalicylic Acd Negative (Negative) 05/17/23 18:59 Urine Urobilinogen Neg mg/dL (Negative) 05/17/23 18:59 Ur Leukocyte Esterase 1+ (Negative) H 05/17/23 18:59 Urine RBC 0-4 /hpf (0-2) H 05/17/23 18:59 Urine WBC 5-10 /hpf (0-5) H 05/17/23 18:59 Ur Squamous Epith Cells 0-4 /hpf (0-5) H 05/17/23 18:59 Amorphous Sediment 1+ /hpf 05/17/23 18:59 Urine Bacteria Trace /hpf (NONE) 05/17/23 18:59 Urine Mucus Trace /hpf 05/17/23 18:59 All radiology interpretation(s) finalized by discharge EKG Data EKG 1: I personally reviewed and interpreted this EKG as follows: EKG interpretation date: 05/17/23 EKG interpretation time: 18:41 Interpretation: sinus tach hr [address] or t wave abnormalities qrs 125 qtc 392 Discharge Plan Discharge Patient Disposition: Home Clinical Impression: Hypertension Qualifiers: Hypertension type: primary hypertension Qualified Code(s): I10 - Essential (primary) hypertension Condition: Stable Prescriptions: No Action cholecalciferol (vitamin D3) 25 mcg (1,000 unit) capsule 25 mcg PO DAILY Patient Comments: unknown dose isosorbide mononitrate 30 mg tablet extended release 24 hr 30 mg PO QPM calcium and magnesium carbonat 975-232 mg tablet 1 tab PO DAILY multivitamin Tablet 1 tab PO DAILY PreserVision AREDS-2 250-90-40-1 mg capsule 1 tab PO BID aspirin 81 mg tablet,delayed release (DR/EC) 81 mg PO QPM Qty: 90 0RF Hold Instructions: Resume on 02/03/23. hold unitl you see primary care carvedilol 12.5 mg tablet 12.5 mg PO BID alprazolam [Xanax] 1 mg Tablet 1 mg PO BID levothyroxine 50 mcg Tablet 50 mcg PO QAM Probiotic Blend 2 billion cell-50 mg Capsule 1 cap PO QAM Rx Instructions: give with meal/snack potassium chloride 8 mEq capsule, extended release 8 meq PO DAILY PRN (Reason: when taking lasix) pantoprazole 40 mg tablet,delayed release (DR/EC) 40 mg PO Q12H 30 Days Qty: 60 0RF acetaminophen-codeine 300-30 mg tablet 1 tab PO BID furosemide 20 mg tablet 20 mg PO DAILY PRN (Reason: Greater than 3 pounds weight gain per day) Qty: 30 0RF Discharge Orders: Discharge ED (Routine); Ordered 05/17/23 Ordered By: Kecia Lomeli Referrals: Elmo Staton DO [Primary Care Provider] - Discharge Diet: Advance as tolerated Discharge Activity: Resume usual activity Patient Instructions: Hypertension (ED) Coding Level of Care Code ED Director Sales Training for [employer]
--- NOTE | 2023-05-17 18:41 | ECG_ITS ---
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 Measurements Intervals Pillager Rate: 100 P: 60 MI: 148 QRS: -3 QRSD: 125 T: -10 QT: 335 QTc: 433 Interpretive Statements SINUS TACHYCARDIA WITH OCCASIONAL SUPRAVENTRICULAR PREMATURE COMPLEXES RIGHT BUNDLE BRANCH BLOCK [120+ ms QRS DURATION, UPRIGHT V1, 40+ ms S IN I/aVL/V4/V5/V6] Compared to ECG 04/11/2023 20:12:01 Indeterminate axis no longer present Electronically Signed On 05-18-2023 21:35:24 CDT by Nini Aquino M.D. [id number]
[2023-05-17] MEDS: labetalol 5 mg/mL SDV 20mL 10 MG IVP (18:56)
[2023-05-17 19:07] LABS: Basophils % 0.4 %; Eosinophils # 0.1 10^3/uL (0.0-0.8); Eosinophils % 1.1 %; Hematocrit 43.1 % (36-47); Lymphocytes # 1.1 10^3/uL (0.8-4.8); Lymphocytes % 11.6 %; Mean Corpuscular HGB Conc 31.3 g/dL (30-55); Mean Corpuscular Hemoglobin 29.9 pg (27-33); Mean Corpuscular Volume 95.4 fl (85-98); Monocytes # 0.9 10^3/uL (0.2-0.9); Monocytes % 9.9 %; Neutrophils # 7.18 10^3/uL (1.8-7.7); Neutrophils % 76.8 %; Nucleated Red Blood Cells % 0 %; Platelet Count 236 10^3/cmm (157-399); Red Blood Count 4.52 10^6/uL (3.85-5.65); Red Cell Distribution Width 13.6 % (12.1-15.1); White Blood Count 9.35 10^3/uL (3.29-11.43)
[2023-05-17 19:20] VITALS: BP 168/111; PULSE 106; RESP 16; O2SAT 90
--- NOTE | 2023-05-17 19:23 | CTR_ITS ---
PROCEDURE INFORMATION: Exam: CTA Chest With Contrast Exam date and time: 05/17/2023 7:56 PM Age: 87 years old Clinical indication: Abnormal findings; Abnormal diagnostic tests; Elevated d-dimer; Shortness of breath; Prior surgery; Surgery date: 6+ months; Surgery type: Gb; Patient HX: SOB with tachycardia. Dimer 0.71 TECHNIQUE: Imaging protocol: Computed tomographic angiography of the chest with contrast. Exam focused on the arteries. 3D rendering (Not supervised by radiologist): MIP and/or 3D reconstructed images were created by the technologist. Radiation optimization: All CT scans at this facility use at least one of these dose optimization techniques: automated exposure control; mA and/or kV adjustment per patient size (includes targeted exams where dose is matched to clinical indication); or iterative reconstruction. Contrast material: OMNI 350; Contrast volume: 61 ml; Contrast route: INTRAVENOUS (IV); COMPARISON: CT angio chest PE protcl [id number] 12/20/2022 5:13 PM RADIATION DOSE METRICS: Total DLP (mGy-cm): 384.04 FINDINGS: Pulmonary arteries: No filling defects in the pulmonary arteries to suggest pulmonary embolism. Aorta: Moderate atherosclerotic changes in the visualized arteries. No evidence for aortic aneurysm. Evaluation for aortic dissection is limited due to the phase of contrast-enhancement. The aorta is tortuous. Trachea: Tracheobronchial structures are patent. Lungs: Multiple calcified granulomas in the right lower lobe are stable. No focal consolidation. No pulmonary edema. Stable scarring in both lungs, more extensive on the left. Pleural spaces: No pneumothorax. No pleural effusion. Heart: Stable moderate enlargement of the heart. Stable calcification of the aortic valve and mitral valve annulus. Coronary arteries: Stable moderate atherosclerotic calcification in the coronary arteries. Mediastinal space: No mediastinal hematoma. No pneumomediastinum. Lymph nodes: No lymphadenopathy. Calcified mediastinal and right hilar lymph nodes. Diaphragm: Stable moderate hiatal hernia. Liver: Multiple calcified granulomas in the visualized liver. Multiple cysts in the visualized liver are stable, the largest measures 1.1 cm. Gallbladder and bile ducts: Stable findings consistent with a previous cholecystectomy. No dilatation of the visualized bile ducts. Pancreas: Stable moderate atrophy of the visualized pancreatic parenchyma. No dilatation of the visualized pancreatic duct. Spleen: Multiple calcified granulomas in the spleen. Adrenal glands: The right and left adrenal glands are unremarkable. Kidneys and ureters: The visualized right and left kidneys are unremarkable. Bones/joints: Bones are diffusely osteopenic. Degenerative changes in the spine and shoulders. Mild scoliosis in the visualized spine. Soft tissues: No acute abnormality in the extrathoracic soft tissues. CT/CT angio chest PE protcl [id number] IMPRESSION: 1. No evidence for pulmonary embolism. 2. No acute cardiopulmonary process. 3. Moderate hiatal hernia. 4. Incidental/nonacute findings are listed in the report.
[2023-05-17 19:26] LABS: Bilirubin Urine Neg (Negative); Blood Urine Neg (Negative); Glucose Urine UA Norm (Normal); Ketones Urine Negative (Negative); Nitrate Urine Negative (Negative); Protein Urine Neg (Negative); Urine Appearance Clear (CLEAR); Urine Color Colorless (Yellow); pH Urine 8 (5-7)
[2023-05-17 19:27] LABS: Add Urine Microscopic? YES; Bacteria Urine TRACE /hpf; Leukocyte Esterase Urine 1+ (Negative); Mucus Urine TRACE /hpf; RBC Urine 0-4 /hpf (0-2); Squamous Epithelial Cell Urine 0-4 /hpf (0-5); Sulfosalicylic Acid Urine Negative (Negative); Urobilinogen Urine Neg (Negative)
[2023-05-17 19:28] LABS: Amorphous Sediment Urine 1+ /hpf
[2023-05-17 19:31] LABS: Troponin(5th) Baseline 17 ng/L (0-10)
[2023-05-17 19:41] VITALS: BP 154/95
[2023-05-17] MEDS: iohexol 350 mg/mL 500 mL Btl (per mL) IV (19:51)
[2023-05-17 19:56] LABS: Alanine Aminotransferase 8 U/L (0-33); Albumin Level 3.8 g/dL (3.5-5.2); Alkaline Phosphatase 98 U/L (35-105); Anion Gap 11.9 (5-19); Aspartate Amino Transferase 14 U/L (0-32); Blood Urea Nitrogen 11 mg/dL (8-23); Calcium 9.7 mg/dL (8.5-10.5); Carbon Dioxide 29 mmol/L (22-29); Chloride 99 mmol/L (98-107); Creatinine Clr Calc Pharmacy 46.2454; Globulin 2.5 g/dL (1.3-4.6); Glucose 96 mg/dL (65-115); Lipase 7 U/L (13-60); NT Pro B Type Natriuretic Pept 3514 pg/mL (0-450); Osmolality Calculated 281 mOsm/kg (285-295); Potassium 3.9 mmol/L (3.5-5.1); Sodium 136 mmol/L (136-145); Thyroid Stimulating Hormone 1.17 uIU/mL (0.27-4.20); Total Bilirubin 0.7 mg/dL (0.15-1.2); Total Protein 6.3 g/dL (6.6-8.7)
[2023-05-17 19:58] LABS: INR 1.11 (0.8-1.2)
[2023-05-17 20:01] LABS: D Dimer 0.71 ug/mLFEU (0-0.59)
[2023-05-17] MEDS: metoprolol tartrate 50 mg Tablet PO (20:28)
[2023-05-17 21:18] VITALS: BP 154/95; PULSE 106; RESP 16; TEMP 36.7; O2SAT 90
== END 2023-05-17 21:19 | disposition home or self-care (01) ==
PROVIDERS: Emergency Provider Emergency Medicine; PCP Electrodiagnostic Medicine
DX: I12.9 Hypertensive chronic kidney disease with stage 1 through stage 4 chronic kidney disease, or unspecified chronic kidney disease (principal); N18.9 Chronic kidney disease, unspecified; E78.5 Hyperlipidemia, unspecified; I25.5 Ischemic cardiomyopathy; Z79.82 Long term (current) use of aspirin
CPT/HCPCS: 36415; 71045; 71275; 80053; 81001; 83690; 83880; 84443; 84484; 85025; 85378; 85610; 93005; 96374; 99285; J3490; Q9967

== ENCOUNTER → 2023-05-19 13:00 | Outpatient (BNVA) | payer MEDICARE, OTHER, SELFPAY | PROVIDERS: PCP Electrodiagnostic Medicine; Visit Provider Nurse Practitioner Family | DX: I25.10 Atherosclerotic heart disease of native coronary artery without angina pectoris (principal); I12.9 Hypertensive chronic kidney disease with stage 1 through stage 4 chronic kidney disease, or unspecified chronic kidney disease; N18.9 Chronic kidney disease, unspecified | CPT/HCPCS: 99213 ==

== ENCOUNTER → 2023-06-30 15:17 | Outpatient (BNVA) | payer MEDICARE, OTHER, SELFPAY | PROVIDERS: PCP Electrodiagnostic Medicine; Visit Provider Internal Medicine Cardiovascular Disease | DX: R06.02 Shortness of breath (principal); I48.91 Unspecified atrial fibrillation; Z79.01 Long term (current) use of anticoagulants; I25.10 Atherosclerotic heart disease of native coronary artery without angina pectoris; Z86.73 Personal history of transient ischemic attack (TIA), and cerebral infarction without residual deficits; I48.92 Unspecified atrial flutter; E78.2 Mixed hyperlipidemia; I10 Essential (primary) hypertension; I67.1 Cerebral aneurysm, nonruptured; E03.9 Hypothyroidism, unspecified; H53.8 Other visual disturbances | CPT/HCPCS: 36415; 80048; 85025; 85610; 99215 ==

== ENCOUNTER → 2023-07-08 09:38 | Outpatient (BNVA) | payer MEDICARE, OTHER, SELFPAY | PROVIDERS: PCP Electrodiagnostic Medicine; Visit Provider Psychiatry & Neurology Neurology | DX: Z86.73 Personal history of transient ischemic attack (TIA), and cerebral infarction without residual deficits (principal); R29.90 Unspecified symptoms and signs involving the nervous system; I66.09 Occlusion and stenosis of unspecified middle cerebral artery; I67.1 Cerebral aneurysm, nonruptured; I48.91 Unspecified atrial fibrillation; I48.92 Unspecified atrial flutter; I12.9 Hypertensive chronic kidney disease with stage 1 through stage 4 chronic kidney disease, or unspecified chronic kidney disease; N18.9 Chronic kidney disease, unspecified | CPT/HCPCS: 99212 ==

== ENCOUNTER 2023-07-16 12:40 | Outpatient (CLI) | payer MEDICARE, OTHER, SELFPAY ==
--- NOTE | 2023-07-16 13:00 | MR_ITS ---
WS: [id number] MRA CAROTID ARTERIES HISTORY: R29.90 - Unspecified symptoms and signs involving the ner... COMPARISON: None available. TECHNIQUE: MRA is performed with intravenous gadolinium. MIP and source images are reviewed. MultiHan ce 15 mL. Right: No significant occlusion or stenosis RIGHT cervical carotid artery into the skull base. Left: No significant occlusion or stenosis LEFT cervical carotid artery into the skull base. Subclavian Arteries: Both are patent. Vertebral Arteries: Patent. No high-grade stenosis. MR/MR angio neck w con* [id number] IMPRESSION: No significant cervical carotid artery stenosis. Patent vertebral arteries. Codominant.
--- NOTE | 2023-07-16 13:00 | MR_ITS ---
WS: [id number] MRA ANGIOGRAPHY [place] HISTORY: I63.9 - Cerebral infarction, unspecified COMPARISON: CT [place] 04/11/2023 TECHNIQUE: 3-D MR angiography is performed of the [place]. All images are reviewed including source images. Distal vertebral and basilar arteries are intact with no significant stenosis or plaque. Posterior ce rebral arteries are normal course and caliber. Posterior communicating arteries are both patent. 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 Mixed signa l within the aneurysm but no complete thrombosis. Broad-based neck of the aneurysm measures 4.5 mm. T here is no obstruction of the ICA. No additional aneurysms. No significant stenosis in the distal mid dle cerebral artery M3 distribution as described on the recent CTA. There is slight variation in the vessel size which may be normal. There is no occlusion or additional aneurysm. Anterior cerebral babak ry is normal. RIGHT A1 segment is hypoplastic but patent. MR/MR angio head wo con [id number] IMPRESSION: 1. 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 Similar to the prior study from 04/11/2023. 2. No additional aneurysms in the [place]. 3. No significant occlusions in the [place]. Cannot reconfirm LEFT M3 segment occlusion.
--- NOTE | 2023-07-16 13:45 | MR_ITS ---
WS: [id number] MRI BRAIN WITH AND WITHOUT CONTRAST HISTORY: R29.90 - Unspecified symptoms and signs involving the ner... COMPARISON: CT head 04/11/2023 TECHNIQUE: Multiplanar imaging performed through the brain with MultiHance 15 ml's IV. Diffusion abnormality involving the inferior medial LEFT cerebellum. There is only a small segment de monstrating ischemia. This is probably the PICA distribution. No additional cerebellar abnormality. T here is an additional very tiny diffusion abnormality in the posterior LEFT parietal occipital region . This is indeterminate for an additional very tiny lacunar infarct. Scattered moderate T2 and FLAIR signal hyperintensities throughout the periventricular white matter. Ventricles and extra-axial spaces are normal. Clivus and pituitary gland are normal. Visualized posterior fossa and brainstem are also normal. Postcontrast images are negative for masses or vascular malformations. There is a known aneurysm in t he LEFT cavernous carotid artery. Please refer to the MR angiogram report. Dural venous sinuses are normal. Paranasal sinuses: Well aerated with no significant disease. Mastoid air cells: Normal. Calvarium and scalp: Normal. MR/MR head wo/w con [id number] IMPRESSION: 1. 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 Probably representing the PICA distribution. No hemorrhage. 2. Indeterminate for additional possible lacunar infarct in the posterior LEFT parietal-occipital region. 3. Moderate small vessel ischemic disease. 4. Known aneurysm distal LEFT ICA. Please refer to the MR angiogram report.
[2023-07-16] MEDS: gadobenate dimeglumine 20 mL vial IV (14:25)
== END 2023-07-16 12:41 | disposition home or self-care (01) ==
LOC: RAD 12:40
PROVIDERS: PCP Electrodiagnostic Medicine; Visit Provider Psychiatry & Neurology Neurology
DX: I63.9 Cerebral infarction, unspecified (principal); R29.90 Unspecified symptoms and signs involving the nervous system; I72.0 Aneurysm of carotid artery
CPT/HCPCS: 70544; 70548; 70553; A9577

== ENCOUNTER → 2024-01-08 13:56 | Outpatient (BNVA) | payer MEDICARE, OTHER, SELFPAY | PROVIDERS: PCP Electrodiagnostic Medicine; Visit Provider Internal Medicine Cardiovascular Disease | DX: I25.10 Atherosclerotic heart disease of native coronary artery without angina pectoris (principal); E78.2 Mixed hyperlipidemia; I10 Essential (primary) hypertension; I67.1 Cerebral aneurysm, nonruptured; I48.91 Unspecified atrial fibrillation; I48.92 Unspecified atrial flutter | CPT/HCPCS: 99214 ==

== ENCOUNTER → 2024-03-30 11:07 | Outpatient (BNVA) | payer MEDICARE, OTHER, SELFPAY | PROVIDERS: PCP Electrodiagnostic Medicine; Visit Provider Psychiatry & Neurology Neurology | DX: I63.9 Cerebral infarction, unspecified (principal); R29.90 Unspecified symptoms and signs involving the nervous system; I66.09 Occlusion and stenosis of unspecified middle cerebral artery; I67.1 Cerebral aneurysm, nonruptured; I48.91 Unspecified atrial fibrillation; I48.92 Unspecified atrial flutter | CPT/HCPCS: 99212 ==

== ENCOUNTER → 2024-07-08 09:52 | Outpatient (BNVA) | payer MEDICARE, OTHER, SELFPAY | PROVIDERS: PCP Electrodiagnostic Medicine; Visit Provider Nurse Practitioner Family | DX: I25.10 Atherosclerotic heart disease of native coronary artery without angina pectoris (principal); E78.2 Mixed hyperlipidemia; I67.1 Cerebral aneurysm, nonruptured; I48.91 Unspecified atrial fibrillation; I48.92 Unspecified atrial flutter; I12.9 Hypertensive chronic kidney disease with stage 1 through stage 4 chronic kidney disease, or unspecified chronic kidney disease; N18.30 Chronic kidney disease, stage 3 unspecified | CPT/HCPCS: 99213 ==